=== PATIENT | male | born 1955 | race Caucasian/White ===

== ENCOUNTER 2022-06-18 16:11 | Observation (INO) ==
[2022-06-18] MEDS ORDERED: ZOFRAN INJ 4 MG VIAL IVP PRN (16:46)
[2022-06-18] MEDS ORDERED: NS 250 ML IV 250 ML IV ONE (17:34)
[2022-06-18 17:42] LABS: BASOPHILS # (AUTO) 0.1 X10^3/uL (0.0-0.1); BASOPHILS % (AUTO) 1.3 % (0.2-1.0); EOSINOPHILS # (AUTO) 0.6 x10^3/uL (0.0-0.2); EOSINOPHILS % (AUTO) 5.8 % (0.9-2.9); HEMATOCRIT 39.8 % (42.0-54.0); HEMOGLOBIN 13.5 g/dL (13.5-18.0); LYMPHOCYTES # (AUTO) 1.6 X10^3/uL (1.3-2.9); LYMPHOCYTES % (AUTO) 16.2 % (21.0-51.0); MEAN CORPUSCULAR HEMOGLOBIN 29.3 pg (27.0-34.0); MEAN CORPUSCULAR HGB CONC 33.8 g/dL (33.0-35.0); MEAN CORPUSCULAR VOLUME 86.7 fL (80.0-100.0); MEAN PLATELET VOLUME 8.6 fL (7.4-11.0); MONOCYTES # (AUTO) 0.7 x10^3/uL (0.3-0.8); MONOCYTES % (AUTO) 6.9 % (0.0-13.0); NEUTROPHILS # (AUTO) 6.8 x10^3/uL (2.2-4.8); NEUTROPHILS % (AUTO) 69.8 % (42.0-75.0); RED BLOOD COUNT 4.59 X10^6/uL (4.7-6.0); RED CELL DISTRIBUTION WIDTH 14.8 % (11.6-16.5); WHITE BLOOD COUNT 9.8 X10^3/uL (3.6-10.0)
[2022-06-18] MEDS: PEPCID 20 MG VIAL 20 MG in NS 50 ML IV 50 ML IV SCH ×2 (17:48→20:33)
[2022-06-18] MEDS: PROTONIX INJ 40 MG VIAL IVP SCH ×2 (17:48→20:33)
[2022-06-18 17:50] LABS: ALANINE AMINOTRANSFERASE 28 Units/L (12-78); ALBUMIN 3.5 g/dL (3.4-5.0); ALKALINE PHOSPHATASE 80 Units/L (46-116); AMYLASE 23 Units/L (25-115); ASPARTATE AMINO TRANSFERASE 25 Units/L (15-37); BLOOD UREA NITROGEN 10 mg/dL (7-18); CALCIUM 8.6 mg/dL (8.5-10.1); CARBON DIOXIDE 25.5 mmol/L (21-32); CHLORIDE 105 mmol/L (98-107); CREATININE 1.03 mg/dL (0.70-1.30); LIPASE 87 Units/L (73-393); SODIUM 140 mmol/L (136-145); TOTAL PROTEIN 6.2 g/dL (6.4-8.2); eGFR NON BLACK RACES > 60 (>60)
[2022-06-18] MEDS ORDERED: MIRALAX POWDER (1 DOSE 17 G) PO PRN (18:21)
[2022-06-18] MEDS ORDERED: XOPENEX 1.25 MG/3 ML NEBULE NEB PRN (18:26)
[2022-06-18] MEDS: NS 1,000 ML IV 1,000 ML with MVI INJ (ADULT) 10 ML IV SCH ×2 (19:25)
[2022-06-18] MEDS ORDERED: XOPENEX 1.25 MG/3 ML NEBULE NEB ONE (19:59)
[2022-06-18] MEDS ORDERED: PULMICORT NEB TX 0.5 MG NEB ONE (19:59)
[2022-06-18] MEDS ORDERED: Atrovent NEB TX 0.02% ONE (20:00)
[2022-06-18] MEDS: BENTYL CAP 10 MG PO SCH (20:28)
[2022-06-18] MEDS: TOPROL XL PO SCH (20:29)
[2022-06-18] MEDS: ZyrTEC TAB 10 MG PO SCH (20:29)
[2022-06-18] MEDS: LIPITOR TAB 40 MG PO SCH (20:29)
[2022-06-18] MEDS: CARAFATE PO SCH (20:31)
[2022-06-18] MEDS: Atrovent NEB TX 0.02% NEB SCH (20:49)
[2022-06-18] MEDS: XOPENEX 1.25 MG/3 ML NEBULE NEB SCH (20:49)
[2022-06-18] MEDS: PULMICORT NEB TX 0.5 MG NEB SCH (20:49)
[2022-06-18 20:50] LABS: BILIRUBIN,URINE NEGATIVE (NEGATIVE); BLOOD/HEMOGLOBIN,URINE NEGATIVE (NEGATIVE); GLUCOSE, URINE NEGATIVE (NEGATIVE); KETONES,URINE 2+ (NEGATIVE); LEUKOCYTE ESTERASE ,URINE 1+ (NEGATIVE); NITRITES,URINE NEGATIVE (NEGATIVE); PROTEIN,URINE 2+ (NEGATIVE); UROBILINOGEN,URINE NORMAL (NORMAL)
[2022-06-18 20:58] LABS: APPEARANCE,URINE CLEAR (CLEAR); BACTERIA,URINE TRACE /HPF (NEGATIVE); COLOR,URINE YELLOW (YELLOW); SQUAMOUS EPITHELIAL CELL,UR RARE /HPF (NEGATIVE)
[2022-06-18] MEDS: LEVSIN/MAALOX/LIDOC VISC PO SCH (21:16)
[2022-06-18] MEDS ORDERED: DUONEB 0.5 MG/3 MG (3 mL) NEB SCH (22:00)
[2022-06-18] MEDS: NORCO 5/325 MG TAB PO PRN (23:03)
[2022-06-19] MEDS: CARAFATE PO SCH ×4 (05:43→20:35)
[2022-06-19 06:28] LABS: BASOPHILS # (AUTO) 0.3 X10^3/uL (0.0-0.1); BASOPHILS % (AUTO) 3.7 % (0.2-1.0); EOSINOPHILS # (AUTO) 0.7 x10^3/uL (0.0-0.2); EOSINOPHILS % (AUTO) 7.1 % (0.9-2.9); HEMATOCRIT 38.5 % (42.0-54.0); HEMOGLOBIN 13.1 g/dL (13.5-18.0); LYMPHOCYTES # (AUTO) 1.9 X10^3/uL (1.3-2.9); LYMPHOCYTES % (AUTO) 19.9 % (21.0-51.0); MEAN CORPUSCULAR HEMOGLOBIN 29.4 pg (27.0-34.0); MEAN CORPUSCULAR HGB CONC 34.1 g/dL (33.0-35.0); MEAN CORPUSCULAR VOLUME 86.2 fL (80.0-100.0); MEAN PLATELET VOLUME 8.8 fL (7.4-11.0); MONOCYTES # (AUTO) 0.7 x10^3/uL (0.3-0.8); MONOCYTES % (AUTO) 7.4 % (0.0-13.0); NEUTROPHILS # (AUTO) 5.8 x10^3/uL (2.2-4.8); NEUTROPHILS % (AUTO) 61.9 % (42.0-75.0); RED BLOOD COUNT 4.47 X10^6/uL (4.7-6.0); RED CELL DISTRIBUTION WIDTH 14.8 % (11.6-16.5); WHITE BLOOD COUNT 9.4 X10^3/uL (3.6-10.0)
[2022-06-19] MEDS: Atrovent NEB TX 0.02% NEB SCH ×3 (06:34→20:27)
[2022-06-19] MEDS: XOPENEX 1.25 MG/3 ML NEBULE NEB SCH ×3 (06:34→20:26)
[2022-06-19 06:43] LABS: ALANINE AMINOTRANSFERASE 24 Units/L (12-78); ALBUMIN 3.2 g/dL (3.4-5.0); ALKALINE PHOSPHATASE 76 Units/L (46-116); ASPARTATE AMINO TRANSFERASE 23 Units/L (15-37); BLOOD UREA NITROGEN 12 mg/dL (7-18); CALCIUM 8.4 mg/dL (8.5-10.1); CARBON DIOXIDE 27.1 mmol/L (21-32); CHLORIDE 107 mmol/L (98-107); CREATININE 1.03 mg/dL (0.70-1.30); SODIUM 142 mmol/L (136-145); TOTAL PROTEIN 5.7 g/dL (6.4-8.2); eGFR NON BLACK RACES > 60 (>60)
[2022-06-19] MEDS: PULMICORT NEB TX 0.5 MG NEB SCH ×2 (08:14→20:26)
[2022-06-19] MEDS ORDERED: PATIENT'S HOME MEDICATION (Fluticasone-Umeclidin-Vilanter [Trelegy Ellipta] 100-62.5-25 mc IN SCH (09:00)
[2022-06-19] MEDS: LEVSIN/MAALOX/LIDOC VISC PO SCH ×4 (09:07→20:35)
[2022-06-19] MEDS: NS 1,000 ML IV 1,000 ML with MVI INJ (ADULT) 10 ML IV SCH ×4 (09:08→23:58)
[2022-06-19] MEDS: PROTONIX INJ 40 MG VIAL IVP SCH ×2 (09:08→20:36)
[2022-06-19] MEDS: SYNTHROID 25 mcg TAB PO SCH (09:09)
[2022-06-19] MEDS: BENTYL CAP 10 MG PO SCH ×4 (09:09→20:34)
[2022-06-19] MEDS: PEPCID 20 MG VIAL 20 MG in NS 50 ML IV 50 ML IV SCH ×2 (09:09→20:36)
[2022-06-19] MEDS: WELLBUTRIN XL 300 MG (DAILY) PO SCH (09:09)
[2022-06-19] MEDS: VITAMIN D3 125 mcg (5,000 UNITS) PO SCH (09:10)
[2022-06-19] MEDS: [UNRECOGNIZED DRUG - OTHER] PO SCH (09:10)
[2022-06-19] MEDS: SINGULAIR TAB 10 MG PO SCH (09:10)
--- NOTE | 2022-06-19 13:45 | PCM.PROG ---
Progress Note - Progress Note for Day of Date of Exam: 06/19/22 - Subjective Subjective: PT IS 66 WM, PT OF DR SOTO, ADMITTED WITH INTRACTABLE ABDOMINAL PAIN, CHANGE IN BOWEL HABITS WITH 20LB WEIGHT LOSS IN THE PAST 4-6 WEEKS. PT REPORTS WEAKNESS AND CRAMPING AT EPIGASTRIC AREA THIS AM. PT IS NPO FOR A CT OF ABD AND PELVIS WITH DR BONILLA CONSULTED. - Past Medical Family Social History Past Med/Fam/Surg Hx: No changes since H&P Allergies: Allergies No Known Allergies Allergy (Verified 09/04/21 09:37) - Review of Systems ROS: No change since H&P - Vital Signs and I&O's Vital Signs: Temperature 97.7 F Pulse Rate [Left Brachial] 68 Pulse Rate 70 Respiratory Rate 18 Blood Pressure [Left Arm] 129/84 Blood Pressure 138/81 O2 Sat by Pulse Oximetry 95 Intake and Output: Intake & Output 06/17/22 06/18/22 06/19/22 06/20/22 11:59 11:59 11:59 11:59 Intake Total 950 / 950 Output Total 200 / 200 Balance 750 / 750 - Physical Exam Oriented: Normal Eyes: Normal Ear: Normal Nose: Normal Throat: Normal Respiratory: Normal Cardiovascular: Normal : Normal Auscultation: Bowel Sounds: Increased Tenderness: RLQ, Epigastric Skin: Decreased Turgur Musculoskeletal: Back:Lumbar Psychiatric: Normal Mood Description: Calm Speech Pattern: Clear, Appropriate - Laboratory and Diagnostics Result Diagrams: 06/19/22 05:39 06/19/22 05:39 Labs: Laboratory WBC 9.4 X10^3/uL (3.6-10.0) 06/19/22 05:39 RBC 4.47 X10^6/uL (4.7-6.0) L 06/19/22 05:39 Hgb 13.1 g/dL (13.5-18.0) L 06/19/22 05:39 Hct 38.5 % (42.0-54.0) L 06/19/22 05:39 MCV 86.2 fL (80.0-100.0) 06/19/22 05:39 MCH 29.4 pg (27.0-34.0) 06/19/22 05:39 MCHC 34.1 g/dL (33.0-35.0) 06/19/22 05:39 RDW 14.8 % (11.6-16.5) 06/19/22 05:39 Plt Count 194 X10^3/uL (150.0-450.0) 06/19/22 05:39 MPV 8.8 fL (7.4-11.0) 06/19/22 05:39 Neut % (Auto) 61.9 % (42.0-75.0) 06/19/22 05:39 Lymph % (Auto) 19.9 % (21.0-51.0) L 06/19/22 05:39 [place] % (Auto) 7.4 % (0.0-13.0) 06/19/22 05:39 Eos % (Auto) 7.1 % (0.9-2.9) H 06/19/22 05:39 Baso % (Auto) 3.7 % (0.2-1.0) H 06/19/22 05:39 Neut # (Auto) 5.8 x10^3/uL (2.2-4.8) H 06/19/22 05:39 Lymph # (Auto) 1.9 X10^3/uL (1.3-2.9) 06/19/22 05:39 [place] # (Auto) 0.7 x10^3/uL (0.3-0.8) 06/19/22 05:39 Eos # (Auto) 0.7 x10^3/uL (0.0-0.2) H 06/19/22 05:39 Baso # (Auto) 0.3 X10^3/uL (0.0-0.1) H 06/19/22 05:39 Absolute Nucleated RBC 0.1 /100WBC 06/19/22 05:39 Sodium 142 mmol/L (136-145) 06/19/22 05:39 Corrected Sodium TNP 06/19/22 05:39 Potassium 3.5 mmol/L (3.5-5.1) 06/19/22 05:39 Chloride 107 mmol/L (98-107) 06/19/22 05:39 Carbon Dioxide 27.1 mmol/L (21-32) 06/19/22 05:39 BUN 12 mg/dL (7-18) 06/19/22 05:39 Creatinine 1.03 mg/dL (0.70-1.30) 06/19/22 05:39 Est GFR (MDRD) Af Amer > 60 (>60) 06/19/22 05:39 Est GFR (MDRD) Non-Af > 60 (>60) 06/19/22 05:39 Glucose 70 mg/dL (65-99) 06/19/22 05:39 Calcium 8.4 mg/dL (8.5-10.1) L 06/19/22 05:39 Corrected Calcium 9.0 mg/dL (8.5-10.1) 06/19/22 05:39 Magnesium 1.9 mg/dL (2.0-2.9) L 06/19/22 05:39 Total Bilirubin 0.60 mg/dL (0.2-1.0) 06/19/22 05:39 AST 23 Units/L (15-37) 06/19/22 05:39 ALT 24 Units/L (12-78) 06/19/22 05:39 Alkaline Phosphatase 76 Units/L (46-116) 06/19/22 05:39 Total Protein 5.7 g/dL (6.4-8.2) L 06/19/22 05:39 Albumin 3.2 g/dL (3.4-5.0) L 06/19/22 05:39 Globulin 2.5 g/dL (2.5-4.5) 06/19/22 05:39 Albumin/Globulin Ratio 1.3 Ratio (1.1-2.1) 06/19/22 05:39 Amylase 23 Units/L (25-115) L 06/18/22 17:30 Lipase 87 Units/L (73-393) 06/18/22 17:30 Specimen Type Clean catch urine 06/18/22 20:35 Urine Color Yellow (YELLOW) 06/18/22 20:35 Urine Appearance Clear (CLEAR) 06/18/22 20:35 Urine pH 5.0 (5.0 - 8.0) 06/18/22 20:35 Ur Specific [place] 1.030 (1.000-1.030) 06/18/22 20:35 Urine Protein 2+ (NEGATIVE) 06/18/22 20:35 Urine Glucose (UA) Negative (NEGATIVE) 06/18/22 20:35 Urine Ketones 2+ (NEGATIVE) 06/18/22 20:35 Urine Blood Negative (NEGATIVE) 06/18/22 20:35 Urine Nitrite Negative (NEGATIVE) 06/18/22 20:35 Urine Bilirubin Negative (NEGATIVE) 06/18/22 20:35 Urine Urobilinogen Normal (NORMAL) 06/18/22 20:35 Ur Leukocyte Esterase 1+ (NEGATIVE) 06/18/22 20:35 Urine RBC 3-5 /HPF (0-3) A 06/18/22 20:35 Urine WBC 3-5 /HPF (0-5) 06/18/22 20:35 Ur Squamous Epith Cells Rare /HPF (NEGATIVE) 06/18/22 20:35 Urine Bacteria Trace /HPF (NEGATIVE) 06/18/22 20:35 Urine Mucus Many /HPF (NEGATIVE) 06/18/22 20:35 Ur Culture Indicated? No/not indicated 06/18/22 20:35 - Plan (1) Gastritis Status: Acute Plan: NPO FOR CT THIS AM, CONTINUE GENTLE IV HYDRATION, PPI THERAPY. BP AND CARDIAC MONITORING. GI CONSULT. (2) GERD (gastroesophageal reflux disease) Status: Acute (3) Abdominal pain Status: Acute (4) COPD (chronic obstructive pulmonary disease) Status: Acute Qualifiers: COPD type: COPD with acute exacerbation Qualified Code(s): J44.1 - Chronic obstructive pulmonary disease with (acute) exacerbation (5) CHF (congestive heart failure) Status: Acute Qualifiers: Heart failure type: combined systolic and diastolic Heart failure chronicity: acute on chronic Qualified Code(s): I50.43 - Acute on chronic combined systolic (congestive) and diastolic (congestive) heart failure
[2022-06-19] MEDS ORDERED: K-RIDER 10 MEQ/NS 100 ML 10 MEQ/100 ML BAG IV PRN (14:45)
[2022-06-19] MEDS ORDERED: POTASSIUM CHL 40 MEQ/NS 0.45% 500 ML IV PRN (14:45)
[2022-06-19] MEDS ORDERED: POTASSIUM CHL 60 MEQ/NS 0.45% 500 ML IV PRN (14:45)
[2022-06-19] MEDS ORDERED: K-DUR TAB 20 MEQ PO PRN (14:45)
[2022-06-19] MEDS ORDERED: MICRO K EXTEN CAP 10 MEQ PO PRN (14:45)
[2022-06-19] MEDS ORDERED: KLOR-CON PO PRN (14:45)
[2022-06-19] MEDS ORDERED: POTASSIUM CHLORIDE LIQ 20 MEQ UDC PO PRN (14:45)
[2022-06-19] MEDS: MAGNESIUM SULFATE 1 GRAM/100 mL PREMIX 1 G/100 ML BAG IV PRN ×2 (16:02→17:36)
--- NOTE | 2022-06-19 16:19 | CT ---
CT abdomen and pelvis with contrastIndication: Abdominal pain with nausea, vomiting and weight lossCOMPARISONApril 2021 CTTECHNIQUEHelical images through the abdomen and pelvis after IV and oral contrast. Coronal and sagittal reformats provided.FINDINGSLimited images through the lower chest show cardiomegaly with coronary calcifications, fairly advanced. Chronic lung changes noted in the bases, suggesting fairly advanced COPD. Review of bone windows demonstrates spine and pelvis DJD without destructive osseous lesion.Abdomen: The liver, pancreas, spleen, adrenal glands, stomach and small bowel show no acute abnormality. Oral contrast passes distally without obstruction. There is no acute colonic abnormality. Appendix not identified. Aortoiliac plaque noted. Kidneys show no stone or hydroureteronephrosis.Pelvis: Urinary bladder is normal. Moderate stool seen in the rectum. Prostate gland is normal.IMPRESSION1. No acute abnormality to explain the patient's symptoms.2. Moderate stool in the rectum. Correlate for constipation3. Vascular disease, extensive coronary artery disease and chronic lung changes, likely COPD. Spine DJD noted. AllElectronically signed by: RAMON THOMPSON (Jun 19, 2022 16:18:42)
[2022-06-19 16:48] VITALS: BMI 24.1
[2022-06-19] MEDS: NORCO 5/325 MG TAB PO PRN (20:00)
[2022-06-19] MEDS: ZyrTEC TAB 10 MG PO SCH (20:34)
[2022-06-19] MEDS: LIPITOR TAB 40 MG PO SCH (20:35)
[2022-06-19] MEDS: TOPROL XL PO SCH (21:00)
--- NOTE | 2022-06-20 05:41 | EKG ---
Test Reason : surgery Blood Pressure : */* mmHG Vent. Rate : 53 BPM Atrial Rate : 53 BPM P-R Int : 216 ms QRS Dur : 120 ms QT Int : 468 ms P-R-T Axes : 56 -56 -3 degrees QTc Int : 439 ms Sinus bradycardia with 1st degree AV block Left anterior fascicular block Left ventricular hypertrophy with QRS widening ( R in aVL , Capo product ) Abnormal ECG When compared with ECG of 18-MAY-2022 21:14, IA interval has increased Confirmed by Ronald May ([id number]) on 06/20/2022 10:34:23 AM Referred By: Confirmed By: Ronald May
[2022-06-20] MEDS: XOPENEX 1.25 MG/3 ML NEBULE NEB SCH (05:45)
[2022-06-20] MEDS: Atrovent NEB TX 0.02% NEB SCH (05:45)
[2022-06-20 06:00] LABS: BASOPHILS # (AUTO) 0.3 X10^3/uL (0.0-0.1); BASOPHILS % (AUTO) 2.8 % (0.2-1.0); EOSINOPHILS # (AUTO) 0.6 x10^3/uL (0.0-0.2); EOSINOPHILS % (AUTO) 6.3 % (0.9-2.9); HEMATOCRIT 37.9 % (42.0-54.0); LYMPHOCYTES # (AUTO) 1.5 X10^3/uL (1.3-2.9); LYMPHOCYTES % (AUTO) 14.9 % (21.0-51.0); MEAN CORPUSCULAR HEMOGLOBIN 29.5 pg (27.0-34.0); MEAN CORPUSCULAR HGB CONC 34.2 g/dL (33.0-35.0); MEAN CORPUSCULAR VOLUME 86.4 fL (80.0-100.0); MEAN PLATELET VOLUME 8.9 fL (7.4-11.0); MONOCYTES # (AUTO) 0.7 x10^3/uL (0.3-0.8); MONOCYTES % (AUTO) 6.6 % (0.0-13.0); NEUTROPHILS # (AUTO) 6.9 x10^3/uL (2.2-4.8); NEUTROPHILS % (AUTO) 69.4 % (42.0-75.0); RED BLOOD COUNT 4.38 X10^6/uL (4.7-6.0); WHITE BLOOD COUNT 9.9 X10^3/uL (3.6-10.0)
[2022-06-20] MEDS: CARAFATE PO SCH (06:02)
[2022-06-20 06:06] LABS: ALANINE AMINOTRANSFERASE 22 Units/L (12-78); ALBUMIN 2.9 g/dL (3.4-5.0); ALKALINE PHOSPHATASE 73 Units/L (46-116); ASPARTATE AMINO TRANSFERASE 19 Units/L (15-37); BLOOD UREA NITROGEN 6 mg/dL (7-18); CARBON DIOXIDE 26.3 mmol/L (21-32); CHLORIDE 108 mmol/L (98-107); COR CA(FOR HYPOALB) 8.9 mg/dL (8.5-10.1); CREATININE 0.96 mg/dL (0.70-1.30); MAGNESIUM 2.2 mg/dL (2.0-2.9); SODIUM 142 mmol/L (136-145); TOTAL PROTEIN 5.4 g/dL (6.4-8.2); eGFR NON BLACK RACES > 60 (>60)
[2022-06-20] MEDS: BENTYL CAP 10 MG PO SCH (08:20)
[2022-06-20] MEDS: LEVSIN/MAALOX/LIDOC VISC PO SCH (08:20)
[2022-06-20] MEDS: [UNRECOGNIZED DRUG - OTHER] PO SCH (08:20)
[2022-06-20] MEDS: SINGULAIR TAB 10 MG PO SCH (08:20)
[2022-06-20] MEDS: WELLBUTRIN XL 300 MG (DAILY) PO SCH (08:21)
[2022-06-20] MEDS: VITAMIN D3 125 mcg (5,000 UNITS) PO SCH (08:21)
[2022-06-20] MEDS: SYNTHROID 25 mcg TAB PO SCH (08:21)
[2022-06-20] MEDS ORDERED: NS 500 ML IV 500 ML IV ONE (08:24)
[2022-06-20] MEDS ORDERED: DIPRIVAN VIAL 40 ML ONE (08:42)
[2022-06-20] MEDS ORDERED: COLACE CAP 100 MG PO SCH (09:00)
[2022-06-20] MEDS ORDERED: MILK OF MAGNESIA PO SCH (09:00)
[2022-06-20] MEDS: PROTONIX INJ 40 MG VIAL IVP SCH (09:32)
[2022-06-20] MEDS: PEPCID 20 MG VIAL 20 MG in NS 50 ML IV 50 ML IV SCH (09:32)
--- NOTE | 2022-06-20 11:25 | DR.UPDATE ---
H&P Update Prescription drug monitoring program results: PDMP reviewed and no concerns identified H&P Reviewed: Yes Any changes to H&P?: Yes Changes noted:: WAS A DIRECT ADMISSION FROM THE OFFICE DUE TO COMPLAINTS OF PERSISTENT ABDOMINAL PAIN, NAUSEA AND VOMITING, AND 20LB WEIGHT LOSS X 1 MONTH. HE WAS EVALUATED IN THE ER ON 05/18/22. AN ABDOMEN XRAY WAS OBTAINED AT THAT TIME AND REVEALED LOW COLON OBSTRUCTION VS ILEUS. FOLLOW-UP IMAGING WAS NOT DONE. HE WAS TREATED WITH CIPRO 500MG BID X 7 DAYS, PEPCID, PROTONIX, GI COCKTAIL, AND WAS GIVEN A PRESCRIPTION FOR NORCO 5/325MG. HE REPORTS PERSISTENT WORSENING OF SYMPTOMS DESPITE COMPLAINCE WITH MEDICATIONS. HE WAS ADMITTED TO THE HOSPITAL FOR FURTHER EVALUATION AND TREATMENT. HE DESCRIBES ABDOMINAL PAIN DIFFUSE, INTERMITTENT, AND CRAMPING. HE RATED PAIN A 6/10 ON ARRIVAL. HIS PMH INCLUDES: CAD, HYPERLIPIDEMIA, COPD, EMPHYSEMA, GERD, CONSTIPATION, APPENDECTOMY, CAD, FACIAL RECONSTRUCTIVE SURGERY, RIGHT KNEE SURGERY, BILATERAL HAND SURGERIES. ON ARRIVAL TO THE HOSPITAL, HIS VITALS WERE: 97.7-80-22-92%- 132/85. LABS WERE OBTAINED. WBC 9.8, RBC 4.59, HGB 13.5, HCT 39.8, PLT COUNT 228, SODIUM 140, POTASSIUM 3.4, CHLORIDE 105, BUN 10, CREATININE 1.03, GLUCOSE 80, CALCIUM 8.6, AST 25, ALT 28, ALK PHOS 80, TOTAL PROTEIN 6.2, ALBUMIN 3.5, AMYLASE 23, LIPASE 87. HE WAS STARTED ON NORMAL SALINE WITH MVI AT 75 ML/HR, PEPCID 40MG IV BID, PROTONIX 20MG IV BID, GI COCKTAIL 10ML QID, THE POTASSIUM AND MAGNESIUM PROTOCOLS, ZOFRAN 4MG IV Q4H. HIS HOME MEDICATIONS OF CARAFATE, SINGULAIR, METOPROLOL, SYNTHROID, XOPENEX NEBS, PULMICORT NEBS, NORCO, BENTYL, VITAMIN D, ZYRTEC, WELLBUTRIN, AND LIPITOR WERE RESUMED. WE WILL OBTAIN AN ABDOMEN/PELVIS CT WITH CONTRAST, A URINALYSIS, AND A URINE CULTURE. WE WILL CONSULT , GENERAL SURGEON. OTHERWISE, WE WILL FOLLOW-UP WITH AM LABS AND CONTINUE TO MONITOR. TIME SPENT ON CLINICAL ASSESSMENT, REVIWING LABS AND IMAGING, DECISION MAKING, AND DOCUMENTATION GREATER THAN 75 MINUTES. Patient was examined?: Yes
[2022-06-20 12:13] VITALS: BP 122/85
[2022-06-20] MEDS: PULMICORT NEB TX 0.5 MG NEB SCH (12:46)
== END 2022-06-20 14:35 | disposition home or self-care (01) ==
LOC: MED/SURG
PROVIDERS: ADMIT Internal Medicine; ATTEND Internal Medicine

== ENCOUNTER 2023-06-08 23:40 | Observation (INO) ==
--- NOTE | 2023-06-08 23:48 | DR.SOBA ---
HPI Time Seen Time Seen by Provider: 06/08/23 23:48 HPI Comment HPI Comment: 67 y/o with copd on intermittent home oxygen and hx cad s/p heart cath 2-3 weeks ago presents with acute sob x 1-2 worsening over the past day; occasional cough with intermittent blood-tinged sputum; no fevers, chills, wheez ing, abd pain, n/v/d; currently using zithromax three times a week per human resources director but steroids were stopped recently because pulmonology thought he was using them too much PMH PMH Past Medical History: Anxiety, COPD, Coronary Artery Disease, Depression, Dyslipidemia, GERD, Hypertension, Hypothyroidism and PUD Past Surgical History: Yes Surgical History: Appendectomy and Cholecystectomy Family History Family Medical History: Cancer and Coronary Artery Disease Social History Do you use any recreational Drugs:: No ROS Review of Systems Constitutional: No Symptoms Reported Eyes: No Symptoms Reported ENTM: No Symptoms Reported Respiratoy: See HPI Cardiovascular: No Symptoms Reported Gastrointestinal/Abdominal: No Symptoms Reported Genitourinary: No Symptoms Reported Neurological: No Symptoms Reported Musculoskeletal: No Symptoms Reported Integumentary: No Symptoms Reported Hematologic/Lymphatic: No Symptoms Reported Endocrine: No Symptoms Reported Psychiatric: No Symptoms Reported PE Vital Signs Vitals: Vital Signs Temperature 98.3 F Pulse Rate 113 Pulse Rate 117 Pulse Rate 113 Pulse Rate 104 Pulse Rate 115 Pulse Rate 129 Pulse Rate 114 Pulse Rate 120 Pulse Rate 121 Pulse Rate 106 Pulse Rate 132 Pulse Rate 140 Pulse Rate 140 Respiratory Rate 36 Respiratory Rate 51 Respiratory Rate 41 Respiratory Rate 29 Respiratory Rate 23 Respiratory Rate 37 Respiratory Rate 40 Respiratory Rate 53 Respiratory Rate 52 Respiratory Rate 35 Respiratory Rate 29 Respiratory Rate 37 Respiratory Rate 32 Blood Pressure 135/88 Blood Pressure 117/84 Blood Pressure 117/84 Blood Pressure 124/74 Blood Pressure 139/89 Blood Pressure 139/84 Blood Pressure 139/84 O2 Sat by Pulse Oximetry 97 O2 Sat by Pulse Oximetry 98 O2 Sat by Pulse Oximetry 98 O2 Sat by Pulse Oximetry 95 O2 Sat by Pulse Oximetry 99 O2 Sat by Pulse Oximetry 84 O2 Sat by Pulse Oximetry 89 O2 Sat by Pulse Oximetry 96 O2 Sat by Pulse Oximetry 97 O2 Sat by Pulse Oximetry 97 O2 Sat by Pulse Oximetry 85 General Limitations: No Limitations General Appearance: Alert and In No Apparent Distress Head Head Exam: Normal Inspection Eyes Eye exam: Normal Appearance ENT ENT Exam: Normal Exam Neck Neck Exam: Normal Inspection Chest Chest Inspection: Normal Inspection Respiratory Respiratory Exam: Accessory Muscle Use (tachypnea worsening with speaking) Respiratory Exam: Bilateral: Clear to Auscultation and Bilateral: Decreased Breath Sounds Cardiovascular Cardiovascular Exam: Normal Rhythm and Tachycardia Abdominal Exam Abdominal Exam: Normal Inspection, Normal Bowel Sounds and Soft Extremities Extremities Exam: Normal Inspection Back Back Exam: Normal Inspection Neurologic Neurological Exam: Alert and Oriented X3 Psychiatric Psychiatric Exam: Anxious Skin Skin Exam: Warm, Dry, Intact and Normal Color COURSE Reevaluation 1st: Improved 2nd: Unchanged Consultation Call Returned: 02:34 (Yanely accepts admission.) Critical Care Notes Total Time (mins): 30 Critical Diagnosis: sepsis, pneu, bibasilar bronchiectasis, hypoxia Critical Interventions: labs/cxr/ct chest oxygen via nc, abx discussion with pt multiple times discussion with son with all questions answered discussion with Dr Ny re: admission ROR Labs Reviewed Laboratory Results Reviewed?: Yes 06/08/23 23:54 06/08/23 23:54 Laboratory: WBC 14.0 X10^3/uL (3.6-10.0) H 06/08/23 23:54 RBC 4.35 X10^6/uL (4.7-6.0) L 06/08/23 23:54 Hgb 13.2 g/dL (13.5-18.0) L 06/08/23 23:54 Hct 39.6 % (42.0-54.0) L 06/08/23 23:54 MCV 91.1 fL (80.0-100.0) 06/08/23 23:54 MCH 30.4 pg (27.0-34.0) 06/08/23 23:54 MCHC 33.4 g/dL (33.0-35.0) 06/08/23 23:54 RDW 14.1 % (11.6-16.5) 06/08/23 23:54 Plt Count 289 X10^3/uL (150.0-450.0) 06/08/23 23:54 MPV 8.7 fL (7.4-11.0) 06/08/23 23:54 Neut % (Auto) 81.4 % (42.0-75.0) H 06/08/23 23:54 Lymph % (Auto) 4.5 % (21.0-51.0) L 06/08/23 23:54 [place] % (Auto) 8.7 % (0.0-13.0) 06/08/23 23:54 Eos % (Auto) 5.0 % (0.9-2.9) H 06/08/23 23:54 Baso % (Auto) 0.4 % (0.2-1.0) 06/08/23 23:54 Neut # (Auto) 11.3 x10^3/uL (2.2-4.8) H 06/08/23 23:54 Lymph # (Auto) 0.6 X10^3/uL (1.3-2.9) L 06/08/23 23:54 [place] # (Auto) 1.2 x10^3/uL (0.3-0.8) H 06/08/23 23:54 Eos # (Auto) 0.7 x10^3/uL (0.0-0.2) H 06/08/23 23:54 Baso # (Auto) 0.1 X10^3/uL (0.0-0.1) 06/08/23 23:54 Absolute Nucleated RBC 0.0 /100WBC 06/08/23 23:54 D-Dimer 0.31 ug/ml (0.0-0.57) 06/08/23 23:54 Sample Site Lr 06/08/23 23:52 ABG pH 7.520 (7.35-7.45) H 06/08/23 23:52 ABG pCO2 24.0 mmHg (35.0-45.0) L 06/08/23 23:52 ABG pO2 90.0 mmHg (80.0-100.0) 06/08/23 23:52 ABG HCO3 19.6 mmol/L (22-26) L 06/08/23 23:52 ABG O2 Saturation 98.0 % (90-100) 06/08/23 23:52 ABG Base Excess -1.8 mmol/L (-2.0-2.0) 06/08/23 23:52 Cyrus Test Pos 06/08/23 23:52 A-a Gradient 165.0 mmHg 06/08/23 23:52 FiO2 40.0 06/08/23 23:52 Blood Gas Comments Abhay well ae 06/08/23 23:52 Sodium 142 mmol/L (136-145) 06/08/23 23:54 Corrected Sodium TNP 06/08/23 23:54 Potassium 4.1 mmol/L (3.5-5.1) 06/08/23 23:54 Chloride 105 mmol/L (98-107) 06/08/23 23:54 Carbon Dioxide 23.3 mmol/L (21-32) 06/08/23 23:54 BUN 17 mg/dL (7-18) 06/08/23 23:54 Creatinine 1.15 mg/dL (0.70-1.30) 06/08/23 23:54 Est GFR (MDRD) Af Amer > 60 (>60) 06/08/23 23:54 Est GFR (MDRD) Non-Af > 60 (>60) 06/08/23 23:54 Glucose 96 mg/dL (65-99) 06/08/23 23:54 Lactic Acid 1.1 mmol/L (0.4-2.0) 06/09/23 00:53 Calcium 9.1 mg/dL (8.5-10.1) 06/08/23 23:54 Corrected Calcium 9.7 mg/dL (8.5-10.1) 06/08/23 23:54 Total Bilirubin 0.80 mg/dL (0.2-1.0) 06/08/23 23:54 AST 26 Units/L (15-37) 06/08/23 23:54 ALT 37 Units/L (12-78) 06/08/23 23:54 Alkaline Phosphatase 105 Units/L (46-116) 06/08/23 23:54 Creatine Kinase 73 Units/L (39-308) 06/08/23 23:54 Troponin I High Sens 14.4 ng/L (4.0-60.0) 06/08/23 23:54 B-Natriuretic Peptide 88.8 pg/mL (0-79) H 06/08/23 23:54 Total Protein 7.6 g/dL (6.4-8.2) 06/08/23 23:54 Albumin 3.2 g/dL (3.4-5.0) L 06/08/23 23:54 Globulin 4.4 g/dL (2.5-4.5) 06/08/23 23:54 Albumin/Globulin Ratio 0.7 Ratio (1.1-2.1) L 06/08/23 23:54 SARS-CoV-2 (PCR) Negative (NEGATIVE) 06/08/23 23:57 Influenza Type A (PCR) Negative (NEGATIVE) 06/08/23 23:57 Influenza Type B (PCR) Negative (NEGATIVE) 06/08/23 23:57 RSV (PCR) Negative (NEGATIVE) 06/08/23 23:57 XRAY XRAY Interpreted by: Radiologist X-ray Results: pcxr: Chronic interstitial lung disease with superimposed peripheral alveolar infiltrates and a more prominent left lung base infiltrate. ct chest w/o: Aneurysmal dilatation of the ascending thoracic aorta measuring up to 4.6 cm. Marked emphysematous changes throughout the lungs with scattered interstitial fibrosis with bibasilar bronchiectasis. No significant change from previous 04/30/2023. Opioid Opioid Risk Tool Age (Lan box if 16-45): No History of Preadolescent Sexual Abuse: No Total: 0 Total Score Risk Category: Low Risk Copyright: Alpesh HODGES predicting aberrant behaviors Discharge Plan Diagnosis Discharge Problem: Bilateral interstitial pneumonia, Interstitial lung disease, Bronchiectasis with acute exacerbation Sepsis Qualifiers: Sepsis type: sepsis due to unspecified organism Sepsis acute organ dysfunction status: with acute organ dysfunction Severe sepsis acute organ dysfunction type: acute respiratory failure Acute respiratory failure type: with hypoxia Severe sepsis shock status: without septic shock Qualified Code(s): A41.9 - Sepsis, unspecified organism Discharge Plan Patient Disposition: 09 ADMITTED INPATIENT Condition: Stable Prescriptions: No Action dextroamphetamine-amphetamine 20 mg tablet 20 mg PO QDAY megestrol 40 mg tablet 40 mg PO BID Bosulif 100 mg Capsule 100 mg PO DAILY cyclobenzaprine 10 mg tablet 10 mg PO TID temazepam 15 mg capsule 15 mg PO QPM PRN prasugrel 10 mg tablet 10 mg PO QDAY ipratropium bromide 0.02 % Solution 2.5 ml INHALATION Q6H PRN cholecalciferol (vitamin D3) 50 mcg (2,000 unit) Capsule 50 mcg PO QDAY famotidine 40 mg tablet 40 mg PO BID Rx Instructions: TAKE ONE TABLET TWICE A DAY atorvastatin 40 mg tablet 40 mg PO QHS albuterol sulfate 2.5 mg /3 mL (0.083 %) solution for nebulization 3 ml inhalation Q6H PRN (Reason: Wheezing) Patient Comments: [NO ORIGINAL SIG] sucralfate 1 gram tablet 1 g PO QACHS levothyroxine 25 mcg tablet 25 mcg PO QDAY montelukast 10 mg tablet 10 mg PO QDAY metoprolol succinate 25 mg tablet extended release 24 hr 25 mg PO QHS bupropion HCl 300 mg tablet extended release 24 hr 300 mg PO QDAY Trelegy Ellipta 100-62.5-25 mcg blister with device 1 puff inhalation QDAY polyethylene glycol 3350 [Miralax] 17 gram Powder In Packet 17 g PO QDAY PRN (Reason: Constipation) cetirizine [Zyrtec] 10 mg Tablet 10 mg PO QHS aspirin 81 mg Tablet,Delayed Release (Dr/Ec) 81 mg PO QDAY tadalafil 5 mg Tablet 5 mg PO QDAY Health Concerns: Post Hospitalization: new medications and changes needed to prevent readmission or further decline. Pt educated and given instructions on all concerns. Plan of Treatment: Continue with present treatment and follow up plan. Pt is to keep follow up appointment as instructed and take medications as ordered. Follow ups/Referrals Follow ups/Referrals: Wero Sanchez [Primary Care Provider] - 3 days Instructions Instructions: Sepsis, Adult
--- NOTE | 2023-06-08 23:49 | EKG ---
Test Reason : SHORTNESS OF BREATH" Blood Pressure : */* mmHG Vent. Rate : 138 BPM Atrial Rate : * BPM P-R Int : * ms QRS Dur : 138 ms QT Int : 338 ms P-R-T Axes : * -15 108 degrees QTc Int : 512 ms Wide QRS tachycardia with occasional premature ventricular complexes Left bundle branch block Abnormal ECG When compared with ECG of 05-JUN-2023 15:31, Wide QRS tachycardia has replaced Sinus rhythm Vent. rate has increased BY 51 BPM Confirmed by Robbi Irizarry MD ([id number]) on 06/10/2023 7:35:59 AM Referred By: Confirmed By: Robbi Irizarry MD
[2023-06-08 23:58] LABS: ABG ALLEN TEST POS; ABG BASE EXCESS -1.8 mmol/L (-2.0-2.0); ABG HCO3 19.6 mmol/L (22-26)
[2023-06-09 00:07] LABS: BASOPHILS # (AUTO) 0.1 X10^3/uL (0.0-0.1); BASOPHILS % (AUTO) 0.4 % (0.2-1.0); EOSINOPHILS # (AUTO) 0.7 x10^3/uL (0.0-0.2); HEMATOCRIT 39.6 % (42.0-54.0); HEMOGLOBIN 13.2 g/dL (13.5-18.0); LYMPHOCYTES # (AUTO) 0.6 X10^3/uL (1.3-2.9); LYMPHOCYTES % (AUTO) 4.5 % (21.0-51.0); MEAN CORPUSCULAR HEMOGLOBIN 30.4 pg (27.0-34.0); MEAN CORPUSCULAR HGB CONC 33.4 g/dL (33.0-35.0); MEAN CORPUSCULAR VOLUME 91.1 fL (80.0-100.0); MEAN PLATELET VOLUME 8.7 fL (7.4-11.0); MONOCYTES # (AUTO) 1.2 x10^3/uL (0.3-0.8); MONOCYTES % (AUTO) 8.7 % (0.0-13.0); NEUTROPHILS # (AUTO) 11.3 x10^3/uL (2.2-4.8); NEUTROPHILS % (AUTO) 81.4 % (42.0-75.0); PLATELET COUNT 289 X10^3/uL (150.0-450.0); RED BLOOD COUNT 4.35 X10^6/uL (4.7-6.0); RED CELL DISTRIBUTION WIDTH 14.1 % (11.6-16.5)
[2023-06-09 00:19] LABS: ALANINE AMINOTRANSFERASE 37 Units/L (12-78); ALBUMIN 3.2 g/dL (3.4-5.0); ALKALINE PHOSPHATASE 105 Units/L (46-116); ASPARTATE AMINO TRANSFERASE 26 Units/L (15-37); BLOOD UREA NITROGEN 17 mg/dL (7-18); CALCIUM 9.1 mg/dL (8.5-10.1); CARBON DIOXIDE 23.3 mmol/L (21-32); CHLORIDE 105 mmol/L (98-107); COR CA(FOR HYPOALB) 9.7 mg/dL (8.5-10.1); CREATINE KINASE 73 Units/L (39-308); CREATININE 1.15 mg/dL (0.70-1.30); GLUCOSE 96 mg/dL (65-99); POTASSIUM 4.1 mmol/L (3.5-5.1); SODIUM 142 mmol/L (136-145); TOTAL PROTEIN 7.6 g/dL (6.4-8.2); eGFR NON BLACK RACES > 60 (>60)
[2023-06-09] MEDS ORDERED: ZOSYN VIAL 3.375 GRAMS IV ONE (00:40)
[2023-06-09] MEDS ORDERED: NS 100 ML IV 100 ML ONE (00:41)
[2023-06-09] MEDS: ZOSYN VIAL 3.375 GRAMS 3.375 G in NS 100 ML IV 100 ML IV SCH (00:53)
--- NOTE | 2023-06-09 00:56 | RAD ---
EXAM:CHEST, 1 VIEWHISTORY:SOB;COMPARISON:June 05, 2023.TECHNIQUE:A single frontal view of the chest was obtained.FINDINGS:There are multiple EKG leads and wires seen overlying the patient. The heart is normal in size. There is extensive chronic interstitial lung disease noted throughout both lungs with superimposed left lower lobe alveolar infiltrate. Infiltrates within the periphery of both lungs is also seen. There is no effusion. There is no pneumothorax. The osseous structures are intact. There is anterior cervical interbody fusion of 3 levels of the lower cervical spine .IMPRESSION:Chronic interstitial lung disease with superimposed peripheral alveolar infiltrates and a more prominent left lung base infiltrate.THIS IS AN ELECTRONICALLY VERIFIED FINAL REPORT06/09/2023 12:52 AM - Electronically signed by Ashley Patel MD
--- NOTE | 2023-06-09 01:44 | CT ---
EXAM: CT CHEST WITHOUT CONTRAST HISTORY: HYPOXIA, SOB, ABNORMAL CHEST XRAY; COMPARISON: 04/30/2023 TECHNIQUE: Axial images were acquired of the chest without IV contrast. Sagittal and coronal reformatted images were provided. All images were reviewed in a variety of windows and levels. 3D MIPS were performed a nd reviewed. RADIATION REDUCTION TECHNIQUE: Automated exposure control, Adjustment of the mA and/or kV according t o patient size, or iterative reconstruction techniques were used. FINDINGS: CHEST: Please note that lack of IV contrast limits evaluation of soft tissue structures and vascular detail THYROID GLAND: The thyroid gland is grossly unremarkable. HEART AND VESSELS: The heart size is within normal limits. There is no evidence of a pericardial effu janene. Coronary artery calcifications present. Aneurysmal dilatation of the ascending thoracic aorta measuring up to 4.6 cm. The main pulmonary artery size is within normal limits. LYMPHNODES: There is no evidence of axillary, mediastinal, or hilar lymphadenopathy. AIRWAY: The trachea and mainstem bronchi are patent. There are no intraluminal lesions seen. LUNGS: Marked emphysematous changes throughout the lungs. Scattered interstitial fibrosis with bibas ilar bronchiectasis. No pleural effusion or pneumothorax. ESOPHAGUS: The esophagus is grossly unremarkable. BONES: The visualized bones demonstrate degenerative changes. There are no concerning lytic or blasti c lesions identified. UPPER ABDOMINAL STRUCTURES: The visualized portions of the upper abdominal structures are unremarkabl e. IMPRESSION: Aneurysmal dilatation of the ascending thoracic aorta measuring up to 4.6 cm. Marked emphysematous changes throughout the lungs with scattered interstitial fibrosis with bibasilar bronchiectasis. No significant change from previous 04/30/2023. THIS IS AN ELECTRONICALLY VERIFIED FINAL REPORT 06/09/2023 1:41 AM - Electronically signed by Dar Recinos MD
[2023-06-09] MEDS ORDERED: ZOSYN VIAL 2.25 GRAMS 2.25 G in NS 100 ML IV 100 ML IV SCH (02:42)
[2023-06-09] MEDS ORDERED: CONSULT PHARMACY - ANTIBIOTIC XX SCH (03:00)
[2023-06-09] MEDS ORDERED: CONSULT PHARMACY - POTASSIUM & MAGNESIUM XX SCH ×2 (03:00→07:00)
[2023-06-09] MEDS: PROVENTIL NEB TX 0.083% 2.5MG/ 3ML NEB SCH (04:30)
[2023-06-09 04:39] VITALS: BMI 23.8
[2023-06-09] MEDS: NS 500 ML IV 500 ML IV PRN (05:21)
[2023-06-09 05:47] LABS: BASOPHILS # (AUTO) 0.1 X10^3/uL (0.0-0.1); BASOPHILS % (AUTO) 0.5 % (0.2-1.0); EOSINOPHILS # (AUTO) 0.6 x10^3/uL (0.0-0.2); EOSINOPHILS % (AUTO) 4.6 % (0.9-2.9); HEMATOCRIT 33.7 % (42.0-54.0); HEMOGLOBIN 11.4 g/dL (13.5-18.0); LYMPHOCYTES # (AUTO) 0.6 X10^3/uL (1.3-2.9); LYMPHOCYTES % (AUTO) 4.8 % (21.0-51.0); MEAN CORPUSCULAR HEMOGLOBIN 30.4 pg (27.0-34.0); MEAN CORPUSCULAR HGB CONC 33.8 g/dL (33.0-35.0); MEAN PLATELET VOLUME 8.9 fL (7.4-11.0); MONOCYTES # (AUTO) 1.5 x10^3/uL (0.3-0.8); NEUTROPHILS # (AUTO) 9.9 x10^3/uL (2.2-4.8); NEUTROPHILS % (AUTO) 78.1 % (42.0-75.0); PLATELET COUNT 249 X10^3/uL (150.0-450.0); RED BLOOD COUNT 3.75 X10^6/uL (4.7-6.0); WHITE BLOOD COUNT 12.7 X10^3/uL (3.6-10.0)
[2023-06-09 05:59] LABS: ALANINE AMINOTRANSFERASE 31 Units/L (12-78); ALBUMIN 2.7 g/dL (3.4-5.0); ALKALINE PHOSPHATASE 88 Units/L (46-116); ASPARTATE AMINO TRANSFERASE 21 Units/L (15-37); BLOOD UREA NITROGEN 17 mg/dL (7-18); CALCIUM 8.3 mg/dL (8.5-10.1); CARBON DIOXIDE 21.1 mmol/L (21-32); CHLORIDE 108 mmol/L (98-107); COR CA(FOR HYPOALB) 9.3 mg/dL (8.5-10.1); CREATININE 0.98 mg/dL (0.70-1.30); GLUCOSE 107 mg/dL (65-99); POTASSIUM 3.7 mmol/L (3.5-5.1); SODIUM 142 mmol/L (136-145); TOTAL PROTEIN 6.3 g/dL (6.4-8.2); eGFR NON BLACK RACES > 60 (>60)
[2023-06-09] MEDS: K-DUR TAB 20 MEQ PO SCH (08:44)
[2023-06-09] MEDS: DUONEB 0.5 MG/3 MG (3 mL) NEB SCH (08:47)
[2023-06-09] MEDS: PULMICORT NEB TX 0.5 MG NEB SCH (08:47)
[2023-06-09] MEDS: TOPROL XL PO SCH (08:54)
[2023-06-09] MEDS: SYNTHROID 25 mcg TAB PO SCH (08:55)
[2023-06-09] MEDS: WELLBUTRIN XL 300 MG (DAILY) PO SCH (08:55)
[2023-06-09] MEDS ORDERED: DUONEB 0.5 MG/3 MG (3 mL) NEB SCH ×2 (09:00)
[2023-06-09] MEDS: PATIENT'S HOME MEDICATION (Prasugrel 10 mg tablet) PO SCH (09:11)
[2023-06-09] MEDS: PROVENTIL NEB TX 0.083% 2.5MG/ 3ML ONE (09:16)
[2023-06-09] MEDS: PLAVIX PO SCH (09:36)
[2023-06-09] MEDS: SOLU-Medrol 40 MG VIAL IVP SCH (09:45)
[2023-06-09] MEDS ORDERED: CIALIS PO SCH (10:00)
[2023-06-09] MEDS: PATIENT'S HOME MEDICATION PO SCH (10:24)
--- NOTE | 2023-06-09 14:26 | DR.H&P ---
H&P History & Physical for Day of: H&P Date: 06/09/23 Chief Complaint Chief Complaint: Shortness of breath Cough Allergies Allergies Allergy/AdvReac Type Severity Reaction Status Date / Time No Known Allergies Allergy Verified 06/05/23 15:40 History of Present Illness History of Present Illness: Patient is a 67-year-old male with a past medical history of COPD, CAD, hypertension, hyperlipidemia, hypothyroidism, presenting with cough and shortness of breath that has been progressively getting worse for the past 2 to 3 days. He does use home oxygen of 2 L intermittently at home. Labs/imaging: WBC 12.7, hemoglobin 11.4, platelets 249, sodium 142, potassium 3. 7, creatinine 0.98, glucose 107, troponin negative, blood cultures pending, AIT pending, chest x-ray was obtained that revealed: Chronic interstitial lung disease with superimposed peripheral alveolar infiltrates and a more prominent left lung base infiltrate. Ct chest was obtained that revealed: Aneurysmal dilatation of the ascending thoracic aorta measuring up to 4.6 cm. Marked emphysematous changes throughout the lungs with scattered interstitial fibrosis with bibasilar bronchiectasis. ABG: pH 7.52, pCO2 24, pO2 90, HCO3 19.6, O2 sat 98% on FiO2 40%. Patient admitted for pneumonia and COPD exacerbation. He is currently receiving IV antibiotics Zosyn, will continue. Scheduled bronchodi lators DuoNebs and Pulmicort. Will restart home medications. Respiratory therapy consult. Incentive spirometer. Wean/titrate oxygen as tolerated. Will start on IV Solu-Medrol 40 mg twice daily. Otherwise continue to closely monitor and follow-up labs/imaging. Past Medical History Past Medical History: Anxiety, COPD, Coronary Artery Disease, Depression, Dyslipidemia, GERD, Hypertension, Hypothyroidism and PUD Past Surgical History Surgical History: Angioplasty/Stents, Appendectomy and Cholecystectomy Family History Family Medical History: Cancer and Coronary Artery Disease Social History Alcohol Use: None Drug Use: None Medications Home Medications: Home Medications Medication Instructions Recorded Confirmed Type albuterol sulfate 2.5 mg/3 mL 3 ml inhalation Q6H PRN Wheezing 05/18/22 06/09/23 History (0.083 %) solution for nebulization aspirin 81 mg tablet,delayed 81 mg PO QDAY 05/18/22 06/09/23 History release atorvastatin 40 mg tablet 40 mg PO QHS 05/18/22 06/09/23 History bupropion HCl 300 mg 24 hr tablet, 300 mg PO QDAY 05/18/22 06/09/23 History extended release cetirizine 10 mg tablet (Zyrtec) 10 mg PO QHS 05/18/22 06/09/23 History fluticasone fur. 100 mcg-umeclid 1 puff inhalation QDAY 05/18/22 06/09/23 History 62.5 mcg-vilant 25 mcg inhalat.powder (Trelegy Ellipta) levothyroxine 25 mcg tablet 25 mcg PO QDAY 05/18/22 06/09/23 History metoprolol succinate 25 mg 25 mg PO QHS 05/18/22 06/09/23 History tablet,extended release 24 hr montelukast 10 mg tablet 10 mg PO QDAY 05/18/22 06/09/23 History polyethylene glycol 3350 17 gram 17 g PO QDAY PRN Constipation 05/18/22 06/09/23 History oral powder packet (Miralax) sucralfate 1 gram tablet 1 g PO QACHS 05/18/22 06/09/23 History tadalafil 5 mg tablet 5 mg PO QDAY 05/18/22 06/09/23 History bosutinib 100 mg capsule (Bosulif) 100 mg PO DAILY 04/30/23 06/09/23 History dextroamphetamine-amphetamine 20 20 mg PO QDAY 04/30/23 06/09/23 History mg tablet megestrol 40 mg tablet 40 mg PO BID 04/30/23 06/09/23 History cholecalciferol (vitamin D3) 50 50 mcg PO QDAY 06/09/23 06/09/23 History mcg (2,000 unit) capsule cyclobenzaprine 10 mg tablet 10 mg PO TID 06/09/23 06/09/23 History famotidine 40 mg tablet 40 mg PO BID 06/09/23 06/09/23 History ipratropium bromide 0.02 % 2.5 ml inhalation Q6H PRN 06/09/23 06/09/23 History solution for inhalation prasugrel 10 mg tablet 10 mg PO QDAY 06/09/23 06/09/23 History temazepam 15 mg capsule 15 mg PO QPM PRN 06/09/23 06/09/23 History Labs 06/09/23 05:22 06/09/23 05:22 Labs: Laboratory WBC 12.7 X10^3/uL (3.6-10.0) H 06/09/23 05:22 RBC 3.75 X10^6/uL (4.7-6.0) L 06/09/23 05:22 Hgb 11.4 g/dL (13.5-18.0) L 06/09/23 05:22 Hct 33.7 % (42.0-54.0) L 06/09/23 05:22 MCV 90.0 fL (80.0-100.0) 06/09/23 05:22 MCH 30.4 pg (27.0-34.0) 06/09/23 05:22 MCHC 33.8 g/dL (33.0-35.0) 06/09/23 05:22 RDW 14.0 % (11.6-16.5) 06/09/23 05:22 Plt Count 249 X10^3/uL (150.0-450.0) 06/09/23 05:22 MPV 8.9 fL (7.4-11.0) 06/09/23 05:22 Neut % (Auto) 78.1 % (42.0-75.0) H 06/09/23 05:22 Lymph % (Auto) 4.8 % (21.0-51.0) L 06/09/23 05:22 [place] % (Auto) 12.0 % (0.0-13.0) 06/09/23 05:22 Eos % (Auto) 4.6 % (0.9-2.9) H 06/09/23 05:22 Baso % (Auto) 0.5 % (0.2-1.0) 06/09/23 05:22 Neut # (Auto) 9.9 x10^3/uL (2.2-4.8) H 06/09/23 05:22 Lymph # (Auto) 0.6 X10^3/uL (1.3-2.9) L 06/09/23 05:22 [place] # (Auto) 1.5 x10^3/uL (0.3-0.8) H 06/09/23 05:22 Eos # (Auto) 0.6 x10^3/uL (0.0-0.2) H 06/09/23 05:22 Baso # (Auto) 0.1 X10^3/uL (0.0-0.1) 06/09/23 05:22 Absolute Nucleated RBC 0.0 /100WBC 06/09/23 05:22 D-Dimer 0.31 ug/ml (0.0-0.57) 06/08/23 23:54 Sample Site Lr 06/08/23 23:52 ABG pH 7.520 (7.35-7.45) H 06/08/23 23:52 ABG pCO2 24.0 mmHg (35.0-45.0) L 06/08/23 23:52 ABG pO2 90.0 mmHg (80.0-100.0) 06/08/23 23:52 ABG HCO3 19.6 mmol/L (22-26) L 06/08/23 23:52 ABG O2 Saturation 98.0 % (90-100) 06/08/23 23:52 ABG Base Excess -1.8 mmol/L (-2.0-2.0) 06/08/23 23:52 Cyrus Test Pos 06/08/23 23:52 A-a Gradient 165.0 mmHg 06/08/23 23:52 FiO2 40.0 06/08/23 23:52 Blood Gas Comments Abhay well ae 06/08/23 23:52 Sodium 142 mmol/L (136-145) 06/09/23 05:22 Corrected Sodium TNP 06/09/23 05:22 Potassium 3.7 mmol/L (3.5-5.1) 06/09/23 05:22 Chloride 108 mmol/L (98-107) H 06/09/23 05:22 Carbon Dioxide 21.1 mmol/L (21-32) 06/09/23 05:22 BUN 17 mg/dL (7-18) 06/09/23 05:22 Creatinine 0.98 mg/dL (0.70-1.30) 06/09/23 05:22 Est GFR (MDRD) Af Amer > 60 (>60) 06/09/23 05:22 Est GFR (MDRD) Non-Af > 60 (>60) 06/09/23 05:22 Glucose 107 mg/dL (65-99) H 06/09/23 05:22 Lactic Acid 1.1 mmol/L (0.4-2.0) 06/09/23 00:53 Calcium 8.3 mg/dL (8.5-10.1) L 06/09/23 05:22 Corrected Calcium 9.3 mg/dL (8.5-10.1) 06/09/23 05:22 Magnesium 2.1 mg/dL (2.0-2.9) 06/09/23 05:22 Total Bilirubin 0.60 mg/dL (0.2-1.0) 06/09/23 05:22 AST 21 Units/L (15-37) 06/09/23 05:22 ALT 31 Units/L (12-78) 06/09/23 05:22 Alkaline Phosphatase 88 Units/L (46-116) 06/09/23 05:22 Creatine Kinase 73 Units/L (39-308) 06/08/23 23:54 Troponin I High Sens 14.4 ng/L (4.0-60.0) 06/08/23 23:54 B-Natriuretic Peptide 88.8 pg/mL (0-79) H 06/08/23 23:54 Total Protein 6.3 g/dL (6.4-8.2) L 06/09/23 05:22 Albumin 2.7 g/dL (3.4-5.0) L 06/09/23 05:22 Globulin 3.6 g/dL (2.5-4.5) 06/09/23 05:22 Albumin/Globulin Ratio 0.8 Ratio (1.1-2.1) L 06/09/23 05:22 SARS-CoV-2 (PCR) Negative (NEGATIVE) 06/08/23 23:57 Influenza Type A (PCR) Negative (NEGATIVE) 06/08/23 23:57 Influenza Type B (PCR) Negative (NEGATIVE) 06/08/23 23:57 RSV (PCR) Negative (NEGATIVE) 06/08/23 23:57 Review of Systems Constitutional: Weakness Eyes: No Symptoms Reported ENT: No Symptoms Reported Respiratory: Cough and Shortness of Breath Cardiovascular: No Symptoms Reported Gastrointestinal: No Symptoms Reported Genitourinary: No Symptoms Reported Musculoskeletal: No Symptoms Reported Skin: No Symptoms Reported Neurological: No Symptoms Reported Physical Exam Vital Signs: Vital Signs Temperature 97.8 F Temperature 97.8 F Pulse Rate [Right] 71 Pulse Rate [Right] 86 Respiratory Rate 20 Respiratory Rate 20 Blood Pressure [Left Arm] 113/67 Blood Pressure [Right Arm] 111/62 O2 Sat by Pulse Oximetry 98 O2 Sat by Pulse Oximetry 95 O2 Sat by Pulse Oximetry 97 Oriented: Normal Eyes: Normal Ear: Normal Nose: Normal Throat: Normal Respiratory: Diminished Throughout and Rhonchi Throughout Cardiovascular: Normal : Normal Auscultation: Bowel Sounds: Normal Palpation: Normal Tenderness: Normal Skin: Normal Musculoskeletal: Normal Psychiatric: Normal Mood Description: Calm and Appropriate Affect: Normal Speech Pattern: Clear and Appropriate Assessment/Plan (1) Bilateral interstitial pneumonia: Status: Acute Plan: IV Zosyn Scheduled bronchodilators AIT pending (2) COPD exacerbation: Status: Acute (3) Thoracic aortic aneurysm (TAA): Status: Acute Plan: Will need cardiology referral outpatient. (4) Hypertension: Status: Acute (5) Hypothyroidism: Status: Acute (6) Hyperlipidemia: Status: Acute Review H&P Reviewed: Yes Patient was examined?: Yes
[2023-06-09] MEDS: MAALOX or MYLANTA PO PRN (16:56)
[2023-06-09] MEDS: LEVSIN/MAALOX/LIDOC VISC PO PRN (21:10)
[2023-06-09] MEDS: LIPITOR TAB 40 MG PO SCH (21:11)
[2023-06-09] MEDS: RESTORIL CAP 15 MG PO PRN (21:11)
--- NOTE | 2023-06-10 05:22 | RAD ---
EXAM:CHEST, 1 VIEWHISTORY:f/u;COMPARISON:06/09/2023 r.br.br.br stable.Similar bilateral airspace opacities. No pneumothorax or effusion.No acute osseous abnormality.IMPRESSION:Similar bilateral opacities which may reflect chronic changes. No definite acute airspace disease.THIS IS AN ELECTRONICALLY VERIFIED FINAL REPORT06/10/2023 5:19 AM - Electronically signed by Rajeev Clark MD
[2023-06-10 06:07] LABS: BASOPHILS % (AUTO) 0.2 % (0.2-1.0); HEMATOCRIT 34.8 % (42.0-54.0); HEMOGLOBIN 11.5 g/dL (13.5-18.0); LYMPHOCYTES # (AUTO) 0.4 X10^3/uL (1.3-2.9); LYMPHOCYTES % (AUTO) 3.5 % (21.0-51.0); MEAN CORPUSCULAR HEMOGLOBIN 30.1 pg (27.0-34.0); MEAN CORPUSCULAR HGB CONC 33.2 g/dL (33.0-35.0); MEAN CORPUSCULAR VOLUME 90.6 fL (80.0-100.0); MEAN PLATELET VOLUME 9.3 fL (7.4-11.0); MONOCYTES # (AUTO) 0.5 x10^3/uL (0.3-0.8); MONOCYTES % (AUTO) 4.5 % (0.0-13.0); NEUTROPHILS # (AUTO) 10.8 x10^3/uL (2.2-4.8); NEUTROPHILS % (AUTO) 91.8 % (42.0-75.0); PLATELET COUNT 263 X10^3/uL (150.0-450.0); RED BLOOD COUNT 3.84 X10^6/uL (4.7-6.0); WHITE BLOOD COUNT 11.8 X10^3/uL (3.6-10.0)
[2023-06-10 06:25] LABS: ALANINE AMINOTRANSFERASE 32 Units/L (12-78); ALBUMIN 2.7 g/dL (3.4-5.0); ALKALINE PHOSPHATASE 92 Units/L (46-116); ASPARTATE AMINO TRANSFERASE 21 Units/L (15-37); BLOOD UREA NITROGEN 19 mg/dL (7-18); CALCIUM 8.8 mg/dL (8.5-10.1); CARBON DIOXIDE 21.9 mmol/L (21-32); CHLORIDE 108 mmol/L (98-107); COR CA(FOR HYPOALB) 9.8 mg/dL (8.5-10.1); COR NA(FOR HYPERGLY) 144 mmol/L (136-145); GLUCOSE 122 mg/dL (65-99); MAGNESIUM 2.3 mg/dL (2.0-2.9); POTASSIUM 4.3 mmol/L (3.5-5.1); SODIUM 143 mmol/L (136-145); TOTAL PROTEIN 6.8 g/dL (6.4-8.2); eGFR NON BLACK RACES > 60 (>60)
[2023-06-10 06:35] LABS: PLATELET MORPHOLOGY COMMENT NORMAL (NORMAL)
[2023-06-10] MEDS: LOVENOX INJ 40 MG SYR SC SCH (09:26)
--- NOTE | 2023-06-10 10:04 | PCM.PROG ---
Progress Note Progress Note for Day of Date of Exam: 06/10/23 Subjective Subjective: Patient seen at bedside, no acute events overnight. He is currently being treated for acute respiratory failure due to COPD exacerbation and pneumonia. He has a hx of bronchiectasis, severe emphysema and pulmonary fibrosis. He is currently on 3L NC, weaned down from 4L. He has been getting b ronchodilators and IV Zosyn and Soulmedrol. He states he feels better, he did ambulate to the bathroom. He does have O2 at home but uses it prn and qHS. He does see Pulmonary and Cardiology outpatient. Labs/imaging reviewed - Resp panel pending -CXR: b/l opacities, similar to prior, no change. -CTPE: 4.6 cm ascending thoracic aorta aneurysm Plan: Wean O2 as tolerated, continue bronchodilators. Continue IV Zosyn and Solumedrol. PT/OT as tolerated. Advised to ambulate as tolerated. Discussed with patient that he may need to be on continuous O2 at home. Discussed results of CT and regarding aortic aneurysm. Patient would like to have a copy of CT report to take it to cardio. Continue home medications. Follow pending results. Monitor AM labs/imaging. Time spent for clinical assessment, reviewing labs/imaging, physical exam, decision making and documentation greater than 45 mins. Past Medical Family Social History Allergies: Allergies No Known Allergies Allergy (Verified 06/05/23 15:40) Vital Signs and I&O's Vital Signs: Vital Signs Temperature 97.4 F Temperature 99.1 F Pulse Rate [Right] 82 Pulse Rate [Right] 106 Pulse Rate 80 Respiratory Rate 20 Respiratory Rate 20 Blood Pressure [Left Arm] 130/69 Blood Pressure [Right Arm] 107/69 O2 Sat by Pulse Oximetry 97 O2 Sat by Pulse Oximetry 93 O2 Sat by Pulse Oximetry 99 Intake and Output: Intake & Output 06/07/23 06/08/23 06/09/23 06/10/23 23:59 23:59 23:59 23:59 Intake Total 1278 / 1278 129 / 129 Output Total 400 / 400 Balance 878 / 878 129 / 129 Physical Exam Oriented: Normal Eyes: Normal Ear: Normal Nose: Normal Throat: Normal Respiratory: Generalized, Diminished and Rales (dry-velcro crackles ) Cardiovascular: Normal Auscultation: Bowel Sounds: Normal Tenderness: Normal Skin: Normal Musculoskeletal: Normal Psychiatric: Normal Mood Description: Calm and Appropriate Affect: Normal Speech Pattern: Clear and Appropriate Laboratory and Diagnostics 06/10/23 05:10 06/10/23 05:10 Labs: Laboratory WBC 11.8 X10^3/uL (3.6-10.0) H 06/10/23 05:10 RBC 3.84 X10^6/uL (4.7-6.0) L 06/10/23 05:10 Hgb 11.5 g/dL (13.5-18.0) L 06/10/23 05:10 Hct 34.8 % (42.0-54.0) L 06/10/23 05:10 MCV 90.6 fL (80.0-100.0) 06/10/23 05:10 MCH 30.1 pg (27.0-34.0) 06/10/23 05:10 MCHC 33.2 g/dL (33.0-35.0) 06/10/23 05:10 RDW 14.0 % (11.6-16.5) 06/10/23 05:10 Plt Count 263 X10^3/uL (150.0-450.0) 06/10/23 05:10 Plt Count Comment Adequate (ADEQUATE) 06/10/23 05:10 MPV 9.3 fL (7.4-11.0) 06/10/23 05:10 Neut % (Auto) 91.8 % (42.0-75.0) H 06/10/23 05:10 Lymph % (Auto) 3.5 % (21.0-51.0) L 06/10/23 05:10 [place] % (Auto) 4.5 % (0.0-13.0) 06/10/23 05:10 Eos % (Auto) 0.0 % (0.9-2.9) L 06/10/23 05:10 Baso % (Auto) 0.2 % (0.2-1.0) 06/10/23 05:10 Neut # (Auto) 10.8 x10^3/uL (2.2-4.8) H 06/10/23 05:10 Lymph # (Auto) 0.4 X10^3/uL (1.3-2.9) L 06/10/23 05:10 [place] # (Auto) 0.5 x10^3/uL (0.3-0.8) 06/10/23 05:10 Eos # (Auto) 0.0 x10^3/uL (0.0-0.2) 06/10/23 05:10 Baso # (Auto) 0.0 X10^3/uL (0.0-0.1) 06/10/23 05:10 Absolute Nucleated RBC 0.0 /100WBC 06/10/23 05:10 Total Counted 100 06/10/23 05:10 Neutrophils % (Manual) 93 % (39-76) H 06/10/23 05:10 Lymphocytes % (Manual) 6 % (13-43) L 06/10/23 05:10 Monocytes % (Manual) 1 % (4-9) L 06/10/23 05:10 Plt Morphology Comment Normal (NORMAL) 06/10/23 05:10 RBC Morphology Normal (NORMAL) 06/10/23 05:10 D-Dimer 0.31 ug/ml (0.0-0.57) 06/08/23 23:54 Sample Site Lr 06/08/23 23:52 ABG pH 7.520 (7.35-7.45) H 06/08/23 23:52 ABG pCO2 24.0 mmHg (35.0-45.0) L 06/08/23 23:52 ABG pO2 90.0 mmHg (80.0-100.0) 06/08/23 23:52 ABG HCO3 19.6 mmol/L (22-26) L 06/08/23 23:52 ABG O2 Saturation 98.0 % (90-100) 06/08/23 23:52 ABG Base Excess -1.8 mmol/L (-2.0-2.0) 06/08/23 23:52 Cyrus Test Pos 06/08/23 23:52 A-a Gradient 165.0 mmHg 06/08/23 23:52 FiO2 40.0 06/08/23 23:52 Blood Gas Comments Abhay well ae 06/08/23 23:52 Sodium 143 mmol/L (136-145) 06/10/23 05:10 Corrected Sodium 144 mmol/L (136-145) 06/10/23 05:10 Potassium 4.3 mmol/L (3.5-5.1) 06/10/23 05:10 Chloride 108 mmol/L (98-107) H 06/10/23 05:10 Carbon Dioxide 21.9 mmol/L (21-32) 06/10/23 05:10 BUN 19 mg/dL (7-18) H 06/10/23 05:10 Creatinine 0.80 mg/dL (0.70-1.30) 06/10/23 05:10 Est GFR (MDRD) Af Amer > 60 (>60) 06/10/23 05:10 Est GFR (MDRD) Non-Af > 60 (>60) 06/10/23 05:10 Glucose 122 mg/dL (65-99) H 06/10/23 05:10 Lactic Acid 1.1 mmol/L (0.4-2.0) 06/09/23 00:53 Calcium 8.8 mg/dL (8.5-10.1) 06/10/23 05:10 Corrected Calcium 9.8 mg/dL (8.5-10.1) 06/10/23 05:10 Magnesium 2.3 mg/dL (2.0-2.9) 06/10/23 05:10 Total Bilirubin 0.40 mg/dL (0.2-1.0) 06/10/23 05:10 AST 21 Units/L (15-37) 06/10/23 05:10 ALT 32 Units/L (12-78) 06/10/23 05:10 Alkaline Phosphatase 92 Units/L (46-116) 06/10/23 05:10 Creatine Kinase 73 Units/L (39-308) 06/08/23 23:54 Troponin I High Sens 14.4 ng/L (4.0-60.0) 06/08/23 23:54 B-Natriuretic Peptide 88.8 pg/mL (0-79) H 06/08/23 23:54 Total Protein 6.8 g/dL (6.4-8.2) 06/10/23 05:10 Albumin 2.7 g/dL (3.4-5.0) L 06/10/23 05:10 Globulin 4.1 g/dL (2.5-4.5) 06/10/23 05:10 Albumin/Globulin Ratio 0.7 Ratio (1.1-2.1) L 06/10/23 05:10 SARS-CoV-2 (PCR) Negative (NEGATIVE) 06/08/23 23:57 Influenza Type A (PCR) Negative (NEGATIVE) 06/08/23 23:57 Influenza Type B (PCR) Negative (NEGATIVE) 06/08/23 23:57 RSV (PCR) Negative (NEGATIVE) 06/08/23 23:57 Plan (1) Bilateral interstitial pneumonia: Status: Acute (2) COPD exacerbation: Status: Acute (3) Thoracic aortic aneurysm (TAA): Status: Acute (4) Hypertension: Status: Acute Qualifiers: Hypertension type: primary hypertension Qualified Code(s): I10 - Essential (primary) hypertension (5) Hypothyroidism: Status: Acute Qualifiers: Hypothyroidism type: acquired Qualified Code(s): E03.9 - Hypothyroidism, unspecified (6) Hyperlipidemia: Status: Acute Qualifiers: Hyperlipidemia type: mixed hyperlipidemia Qualified Code(s): E78.2 - Mixed hyperlipidemia (7) Interstitial lung disease: Status: Acute
[2023-06-11 04:47] LABS: BASOPHILS % (AUTO) 0.2 % (0.2-1.0); HEMATOCRIT 32.4 % (42.0-54.0); HEMOGLOBIN 10.9 g/dL (13.5-18.0); LYMPHOCYTES # (AUTO) 0.5 X10^3/uL (1.3-2.9); LYMPHOCYTES % (AUTO) 2.7 % (21.0-51.0); MEAN CORPUSCULAR HEMOGLOBIN 30.5 pg (27.0-34.0); MEAN CORPUSCULAR HGB CONC 33.5 g/dL (33.0-35.0); MEAN CORPUSCULAR VOLUME 91.1 fL (80.0-100.0); MEAN PLATELET VOLUME 8.9 fL (7.4-11.0); MONOCYTES # (AUTO) 0.8 x10^3/uL (0.3-0.8); MONOCYTES % (AUTO) 4.6 % (0.0-13.0); NEUTROPHILS # (AUTO) 16.7 x10^3/uL (2.2-4.8); NEUTROPHILS % (AUTO) 92.5 % (42.0-75.0); PLATELET COUNT 271 X10^3/uL (150.0-450.0); RED BLOOD COUNT 3.56 X10^6/uL (4.7-6.0); RED CELL DISTRIBUTION WIDTH 14.2 % (11.6-16.5); WHITE BLOOD COUNT 18.1 X10^3/uL (3.6-10.0)
[2023-06-11 04:58] LABS: ALANINE AMINOTRANSFERASE 28 Units/L (12-78); ALBUMIN 2.4 g/dL (3.4-5.0); ALKALINE PHOSPHATASE 77 Units/L (46-116); ASPARTATE AMINO TRANSFERASE 18 Units/L (15-37); BLOOD UREA NITROGEN 21 mg/dL (7-18); CALCIUM 8.4 mg/dL (8.5-10.1); CHLORIDE 108 mmol/L (98-107); COR CA(FOR HYPOALB) 9.7 mg/dL (8.5-10.1); COR NA(FOR HYPERGLY) 142 mmol/L (136-145); CREATININE 0.85 mg/dL (0.70-1.30); GLUCOSE 118 mg/dL (65-99); POTASSIUM 4.4 mmol/L (3.5-5.1); SODIUM 142 mmol/L (136-145); TOTAL PROTEIN 6.2 g/dL (6.4-8.2); eGFR NON BLACK RACES > 60 (>60)
[2023-06-11 05:17] LABS: PLATELET MORPHOLOGY COMMENT NORMAL (NORMAL)
[2023-06-11] MEDS: PATIENT'S HOME MEDICATION PO SCH ×2 (09:17→09:18)
[2023-06-11 13:52] VITALS: BP 104/57; PULSE 72; RESP 22; TEMP 97.6; O2SAT 100
== END 2023-06-11 14:20 | disposition home or self-care (01) ==
LOC: ER 23:43 → MED/SURG 23:43
PROVIDERS: ADMIT Internal Medicine; ATTEND Internal Medicine
DX: E78.5 Hyperlipidemia, unspecified; I10 Essential (primary) hypertension; J84.89 Other specified interstitial pulmonary diseases; E03.8 Other specified hypothyroidism; I71.20 Thoracic aortic aneurysm, without rupture, unspecified; Z20.822 Contact with and (suspected) exposure to COVID-19; Z99.81 Dependence on supplemental oxygen; J84.178 Other interstitial pulmonary diseases with fibrosis in diseases classified elsewhere; R26.89 Other abnormalities of gait and mobility; Z79.01 Long term (current) use of anticoagulants; I25.10 Atherosclerotic heart disease of native coronary artery without angina pectoris; J44.1 Chronic obstructive pulmonary disease with (acute) exacerbation; R94.31 Abnormal electrocardiogram [ECG] [EKG]; J96.01 Acute respiratory failure with hypoxia

== ENCOUNTER 2023-07-28 07:57 | Inpatient (IN) ==
--- NOTE | 2023-07-28 08:13 | EKG ---
Test Reason : shortness of breath Blood Pressure : */* mmHG Vent. Rate : 119 BPM Atrial Rate : 119 BPM P-R Int : 142 ms QRS Dur : 140 ms QT Int : 346 ms P-R-T Axes : 27 1 -26 degrees QTc Int : 486 ms Sinus tachycardia Left bundle branch block Abnormal ECG When compared with ECG of 08-JUN-2023 23:45, Sinus rhythm has replaced Wide QRS tachycardia Confirmed by Robbi Irizarry MD ([id number]) on 07/29/2023 7:45:43 AM Referred By: Confirmed By: Robbi Irizarry MD
[2023-07-28 08:20] LABS: ABG BASE EXCESS -1.1 mmol/L (-2.0-2.0); ABG HCO3 20.7 mmol/L (22-26)
[2023-07-28 08:21] LABS: ABG ALLEN TEST POS
--- NOTE | 2023-07-28 08:22 | DR.SOBA ---
HPI Time Seen Time Seen by Provider: 07/28/23 08:12 Primary Care Physician Primary Care Physician: costa Johnson Chief Complaint Doctors Comments: Patient has a h/o leukemia diagnosed 1 yr ago and has been treated and is stable.He was d/c 3 weeks ago from [facility] after treatment of Aspiration Pneumonia. He lost 40lbs in a 2 month period and has been having difficulty eating. His welfare specialist told him that he may selin a G tube if he continued to have problems eating.Patient has been working with a speech therapist to improve his swallowing. Since d/c he has had pureed food,soft food,shakes.He has tolerated spaghetti and has been eating 2 meals daily. Saturday patient ate 2 pot pies that were not pureed. He had a 3rd one that night and began to have severe abdominal pain. The pain worsened today and the EMS were called. Patient had 02 in the low 80's on his 4L NC that he wears at home and stretching machine operator placed him on NRB mask 100% for transport. Patient states that the pain is so severe that he feels like he can't breathe. Patient denies: chest pain,back pain,fever,cough,dizziness,n,v. Chief Complaint:: patient states he started having sob and morrissey twisting pain abd pain in the umbilica area states it started about 10pm pain is so bad it takes his breathe away. patient denies N/V/D had a normal bowel movement yesterday. denies any chest pain COVID-19 Coronavirus risk:travel/contact w/high risk person: No Has patient experienced Coronavirus symptoms: Yes Coronavirus symptoms experienced: Shortness of Breath Source History Provided: Patient Mode of Arrival Mode of Arrival: Stretcher Timing Onset of Chief Complaint: 07/27/23 PMH PMH Past Medical History: Yes Past Medical History: Anxiety, COPD, Coronary Artery Disease, Depression, Dyslipidemia, GERD, Hypertension, Hypothyroidism and PUD Past Medical History Comment: fibrosis, leukemia Past Surgical History: Yes Surgical History: Angioplasty/Stents, Appendectomy and Cholecystectomy Family History History of Family Medical Conditions: Yes Family Medical History: Cancer and Coronary Artery Disease Social History Does patient currently use any type of tobacco product: No Have you used tobacco products in the last 12 months: No Do you use any recreational Drugs:: No Travel Risk Coronavirus risk:travel/contact w/high risk person: No Has patient experienced Coronavirus symptoms: Yes Coronavirus symptoms experienced: Shortness of Breath Infectious screening In the last 2 months have you had wt loss of >10#?: NO Have you had fever, night sweats or hemotysis?: No Have you traveled outside the country in the last 6 months?: No Isolation: Standard ROS Review of Systems Constitutional: Diaphoresis Eyes: No Symptoms Reported ENTM: No Symptoms Reported Respiratoy: No Symptoms Reported Cardiovascular: No Symptoms Reported Gastrointestinal/Abdominal: Abdominal Pain (epigastric); negative Nausea or Vomiting Genitourinary: No Symptoms Reported Neurological: No Symptoms Reported Musculoskeletal: No Symptoms Reported Integumentary: No Symptoms Reported Hematologic/Lymphatic: No Symptoms Reported Endocrine: No Symptoms Reported Psychiatric: No Symptoms Reported All Other Systems: Reviewed and Negative PE Vital Signs Vitals: Vital Signs Temperature 97.8 F Pulse Rate 88 Pulse Rate 86 Pulse Rate 81 Pulse Rate 81 Pulse Rate 82 Pulse Rate 83 Pulse Rate 88 Pulse Rate 90 Pulse Rate 89 Pulse Rate 94 Pulse Rate 87 Pulse Rate 90 Pulse Rate 92 Pulse Rate 95 Pulse Rate 96 Pulse Rate 108 Pulse Rate 115 Pulse Rate 120 Pulse Rate 118 Pulse Rate 120 Pulse Rate 114 Respiratory Rate 31 Respiratory Rate 43 Respiratory Rate 54 Respiratory Rate 37 Respiratory Rate 38 Respiratory Rate 60 Respiratory Rate 64 Respiratory Rate 51 Respiratory Rate 54 Respiratory Rate 55 Respiratory Rate 48 Respiratory Rate 60 Respiratory Rate 53 Respiratory Rate 52 Respiratory Rate 43 Respiratory Rate 32 Respiratory Rate 32 Respiratory Rate 55 Respiratory Rate 61 Respiratory Rate 51 Respiratory Rate 48 Respiratory Rate 35 Blood Pressure 113/81 Blood Pressure 118/74 Blood Pressure 112/75 Blood Pressure 111/67 Blood Pressure 114/75 Blood Pressure 109/76 Blood Pressure 112/74 Blood Pressure 110/78 Blood Pressure 110/78 Blood Pressure 110/78 Blood Pressure 110/78 Blood Pressure 108/75 Blood Pressure 103/82 Blood Pressure 97/64 O2 Sat by Pulse Oximetry 100 O2 Sat by Pulse Oximetry 100 O2 Sat by Pulse Oximetry 100 O2 Sat by Pulse Oximetry 100 O2 Sat by Pulse Oximetry 99 O2 Sat by Pulse Oximetry 96 O2 Sat by Pulse Oximetry 99 O2 Sat by Pulse Oximetry 99 O2 Sat by Pulse Oximetry 97 O2 Sat by Pulse Oximetry 100 O2 Sat by Pulse Oximetry 100 O2 Sat by Pulse Oximetry 100 O2 Sat by Pulse Oximetry 100 O2 Sat by Pulse Oximetry 100 O2 Sat by Pulse Oximetry 100 O2 Sat by Pulse Oximetry 100 O2 Sat by Pulse Oximetry 98 O2 Sat by Pulse Oximetry 96 O2 Sat by Pulse Oximetry 92 O2 Sat by Pulse Oximetry 93 O2 Sat by Pulse Oximetry 96 O2 Sat by Pulse Oximetry 98 General Limitations: No Limitations General Appearance: Alert and In Distress Head Head Exam: Normal Inspection Eyes Eye exam: Normal Appearance ENT ENT Exam: Normal Exam Neck Neck Exam: Normal Inspection Chest Chest Inspection: Normal Inspection Respiratory Respiratory Exam: Accessory Muscle Use Respiratory Exam: Bilateral: Decreased Breath Sounds Cardiovascular Cardiovascular Exam: Regular Rate and Tachycardia Abdominal Exam Abdominal Exam: Soft, Tenderness, Guarding and Hypoactive Bowel Sounds Abdominal Tenderness: Epigastrium Extremities Extremities Exam: Normal Inspection Back Back Exam: Normal Inspection Neurologic Neurological Exam: Alert and Oriented X3 Psychiatric Psychiatric Exam: Normal Affect and Normal Mood Skin Skin Exam: Warm, Dry, Intact and Normal Color MDM Differential Diagnosis Differential Diagnosis: CHF, Mycardial Infarction and Pneumonia Differential Diagnosis Comment:: obstr,perf,bowel ischemia,Inflam BD,pancreatitis,electrolyte disorder COURSE Treatment Treatment: 08:12 Evaluated Patient. EKG being done,abg being done,labs ordered/test ordered. 08:25 Patient with severe epigastric abdl pain.He has bp 97/60.NS bolus administered. Pepcid 20mg iv,dicyclomine 10mg im ordered.ABG PH7.5/PC02 26/P02 59/HC03 20.7/02 sat 93% on 3L. Patient placed on Bipap 08:48 Patient's bp 103/67 Patient given dilaudid 1mg iv. 09:05 Patient transported to [place].Creat 0.75,Wbc 18. Admitted for tx of Pneumonia to [facility] had high dose steriods/iv antbiotics/sent out on steriods. Elevated wbc may be secondary to steroid use,dehydration. 10:[address] Barboza ( General Surgeon). He will evaluate pat ient for G tube placement. 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 Patient has been stable in the ED. ROR Labs Reviewed Laboratory Results Reviewed?: Yes 07/28/23 08:29 07/28/23 08:29 Laboratory: WBC 18.0 X10^3/uL (3.6-10.0) H 07/28/23 08:29 RBC 3.41 X10^6/uL (4.7-6.0) L 07/28/23 08: Hgb 10.1 g/dL (13.5-18.0) L 07/28/23 08: Hct 31.1 % (42.0-54.0) L 07/28/23 08: MCV 91.2 fL (80.0-100.0) 07/28/23 08: MCH 29.5 pg (27.0-34.0) 07/28/23 08: MCHC 32.3 g/dL (33.0-35.0) L 07/28/23 08: RDW 15.2 % (11.6-16.5) 07/28/23 08: Plt Count 527 X10^3/uL (150.0-450.0) H 07/28/23 08: MPV 8.1 fL (7.4-11.0) 07/28/23 08: Neut % (Auto) 77.3 % (42.0-75.0) H 07/28/23 08: Lymph % (Auto) 9.9 % (21.0-51.0) L 07/28/23 08: Ramsey % (Auto) 9.0 % (0.0-13.0) 07/28/23 08: Eos % (Auto) 3.2 % (0.9-2.9) H 07/28/23 08: Baso % (Auto) 0.6 % (0.2-1.0) 07/28/23 08:29 Neut # (Auto) 13.9 x10^3/uL (2.2-4.8) H 07/28/23 08: Lymph # (Auto) 1.8 X10^3/uL (1.3-2.9) 07/28/23 08: Ramsey # (Auto) 1.6 x10^3/uL (0.3-0.8) H 07/28/23 08: Eos # (Auto) 0.6 x10^3/uL (0.0-0.2) H 07/28/23 08:29 Baso # (Auto) 0.1 X10^3/uL (0.0-0.1) 07/28/23 08:29 Absolute Nucleated RBC 0.0 /100WBC 07/28/23 08:29 Sample Site Rrad 07/28/23 08:16 ABG pH 7.510 (7.35-7.45) H 07/28/23 08:16 ABG pCO2 26.0 mmHg (35.0-45.0) L 07/28/23 08:16 ABG pO2 59.0 mmHg (80.0-100.0) L 07/28/23 08:16 ABG HCO3 20.7 mmol/L (22-26) L 07/28/23 08:16 ABG O2 Saturation 93.0 % (90-100) 07/28/23 08:16 ABG Base Excess -1.1 mmol/L (-2.0-2.0) 07/28/23 08:16 Cyrus Test Pos 07/28/23 08:16 A-a Gradient 165.0 mmHg 07/28/23 08:16 FiO2 36.0 07/28/23 08:16 Blood Gas Comments Pt kenney well elj cdn 07/28/23 08:16 Sodium 141 mmol/L (136-145) 07/28/23 08:29 Corrected Sodium TNP 07/28/23 08:29 Potassium 5.0 mmol/L (3.5-5.1) 07/28/23 08:29 Chloride 106 mmol/L (98-107) 07/28/23 08:29 Carbon Dioxide 23.7 mmol/L (21-32) 07/28/23 08:29 BUN 42 mg/dL (7-18) H 07/28/23 08:29 Creatinine 0.75 mg/dL (0.70-1.30) 07/28/23 08:29 Est GFR (MDRD) Af Amer > 60 (>60) 07/28/23 08:29 Est GFR (MDRD) Non-Af > 60 (>60) 07/28/23 08:29 Glucose 108 mg/dL (65-99) H 07/28/23 08:29 Lactic Acid 0.9 mmol/L (0.4-2.0) 07/28/23 10:34 Calcium 9.2 mg/dL (8.5-10.1) 07/28/23 08:29 Corrected Calcium 10.4 mg/dL (8.5-10.1) H 07/28/23 08:29 Total Bilirubin 0.30 mg/dL (0.2-1.0) 07/28/23 08:29 AST 23 Units/L (15-37) 07/28/23 08:29 ALT 43 Units/L (12-78) 07/28/23 08:29 Alkaline Phosphatase 83 Units/L (46-116) 07/28/23 08:29 Creatine Kinase 37 Units/L (39-308) L 07/28/23 08:29 Troponin I High Sens 20.2 ng/L (4.0-60.0) 07/28/23 12:30 Total Protein 5.8 g/dL (6.4-8.2) L 07/28/23 08:29 Albumin 2.5 g/dL (3.4-5.0) L 07/28/23 08:29 Globulin 3.3 g/dL (2.5-4.5) 07/28/23 08:29 Albumin/Globulin Ratio 0.8 Ratio (1.1-2.1) L 07/28/23 08:29 Amylase 24 Units/L (25-115) L 07/28/23 08:29 Lipase 37 Units/L (16-77) 07/28/23 08:29 EKG Compared to prior EKG Dated: 07/28/23 Rate: 119 [place]: Normal Rhythm: ST Block: LBBB (since 06/15) Opioid Opioid Risk Tool Age (Lan box if 16-45): No History of Preadolescent Sexual Abuse: No Total: 0 Total Score Risk Category: Low Risk Copyright: Alpesh HODGES predicting aberrant behaviors Discharge Plan Diagnosis Discharge Problem: Acute exacerbation of chronic obstructive pulmonary disease, Abdominal pain, Hypoxemia Discharge Plan Patient Disposition: 09 ADMITTED INPATIENT Condition: Stable Prescriptions: No Action megestrol 40 mg tablet 40 mg PO BID temazepam 15 mg capsule 15 mg PO QPM PRN prasugrel 10 mg tablet 10 mg PO QDAY famotidine 40 mg tablet 40 mg PO BID Rx Instructions: TAKE ONE TABLET TWICE A DAY atorvastatin 40 mg tablet 40 mg PO QHS albuterol sulfate 2.5 mg /3 mL (0.083 %) solution for nebulization 3 ml inhalation Q6H PRN (Reason: Wheezing) Patient Comments: [NO ORIGINAL SIG] levothyroxine 25 mcg tablet 25 mcg PO QDAY montelukast 10 mg tablet 10 mg PO QDAY metoprolol succinate 25 mg tablet extended release 24 hr 25 mg PO QHS bupropion HCl 300 mg tablet extended release 24 hr 300 mg PO QDAY Trelegy Ellipta 100-62.5-25 mcg blister with device 1 puff inhalation QDAY tadalafil 5 mg Tablet 5 mg PO QDAY Health Concerns: Post Hospitalization: new medications and changes needed to prevent readmission or further decline. Pt educated and given instructions on all concerns. Plan of Treatment: Continue with present treatment and follow up plan. Pt is to keep follow up appointment as instructed and take medications as ordered. Orders to Discharge Patient Discharge Orders: Transfer (Routine); Ordered 07/28/23 Ordered By: Emilee Smith Follow ups/Referrals Follow ups/Referrals: Wero Sanchez [Primary Care Provider] - 3 days Instructions Stand Alone Forms: Post Hospital Follow Up Care ADDITIONAL NOTES Additional Notes Additional Notes: EKG #2 HR 91 [place] nml Rhythm NSR LBBB
[2023-07-28] MEDS: NS 1,000 ML IV 1,000 ML IV ONE (08:33)
[2023-07-28] MEDS: BENTYL I.M. INJ 10 MG IM ONE (08:33)
[2023-07-28] MEDS: PEPCID 20 MG VIAL IVP ONE (08:33)
[2023-07-28 08:39] LABS: BASOPHILS # (AUTO) 0.1 X10^3/uL (0.0-0.1)
[2023-07-28] MEDS ORDERED: LEVOPHED 8 MG/250 ML IV *PREMIX 8 MG/250 ML PLAST..BAG IV PRN (08:39)
[2023-07-28 08:44] LABS: BASOPHILS % (AUTO) 0.6 % (0.2-1.0); EOSINOPHILS # (AUTO) 0.6 x10^3/uL (0.0-0.2); EOSINOPHILS % (AUTO) 3.2 % (0.9-2.9); HEMATOCRIT 31.1 % (42.0-54.0); HEMOGLOBIN 10.1 g/dL (13.5-18.0); LYMPHOCYTES # (AUTO) 1.8 X10^3/uL (1.3-2.9); LYMPHOCYTES % (AUTO) 9.9 % (21.0-51.0); MEAN CORPUSCULAR HEMOGLOBIN 29.5 pg (27.0-34.0); MEAN CORPUSCULAR HGB CONC 32.3 g/dL (33.0-35.0); MEAN CORPUSCULAR VOLUME 91.2 fL (80.0-100.0); MEAN PLATELET VOLUME 8.1 fL (7.4-11.0); MONOCYTES # (AUTO) 1.6 x10^3/uL (0.3-0.8); NEUTROPHILS # (AUTO) 13.9 x10^3/uL (2.2-4.8); NEUTROPHILS % (AUTO) 77.3 % (42.0-75.0); PLATELET COUNT 527 X10^3/uL (150.0-450.0); RED BLOOD COUNT 3.41 X10^6/uL (4.7-6.0); RED CELL DISTRIBUTION WIDTH 15.2 % (11.6-16.5)
[2023-07-28] MEDS: DILAUDID INJ IVP ONE (08:54)
[2023-07-28] MEDS: DILAUDID INJ IM ONE (08:56)
[2023-07-28 08:59] LABS: ALANINE AMINOTRANSFERASE 43 Units/L (12-78); ALBUMIN 2.5 g/dL (3.4-5.0); ALKALINE PHOSPHATASE 83 Units/L (46-116); ASPARTATE AMINO TRANSFERASE 23 Units/L (15-37); BLOOD UREA NITROGEN 42 mg/dL (7-18); CALCIUM 9.2 mg/dL (8.5-10.1); CARBON DIOXIDE 23.7 mmol/L (21-32); CHLORIDE 106 mmol/L (98-107); COR CA(FOR HYPOALB) 10.4 mg/dL (8.5-10.1); CREATINE KINASE 37 Units/L (39-308); CREATININE 0.75 mg/dL (0.70-1.30); GLUCOSE 108 mg/dL (65-99); SODIUM 141 mmol/L (136-145); TOTAL PROTEIN 5.8 g/dL (6.4-8.2); eGFR NON BLACK RACES > 60 (>60)
[2023-07-28 09:00] LABS: AMYLASE 24 Units/L (25-115); LIPASE 37 Units/L (16-77)
[2023-07-28] MEDS: ZOFRAN INJ 4 MG VIAL IVP ONE (09:06)
--- NOTE | 2023-07-28 10:06 | CT ---
EXAM:CT chest, abdomen and pelvis with contrastHISTORY:Shortness of breath, periumbilical pain.COMPARISON:CT chest from 06/09/2023. CT abdomen and pelvis from 06/19/2022.TECHNIQUE:Axial, coronal and sagittal CT imaging was performed through the chest, abdomen and pelvis after administration of IV contrast. 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 Mild aortic calcification. No acute findings.MEDIASTINUM: No significant abnormality.LUNGS: No acute findings. Unchanged severe emphysema and pulmonary fibrosis.BONES: Mild spondylosis.ADDITIONAL FINDINGS: None.ABDOMEN/PELVIS:LIVER: No significant abnormality.BILIARY: Cholecystectomy without biliary ductal dilatation.PANCREAS: No significant abnormality.ADRENALS: No significant abnormality.SPLEEN: No significant abnormality.KIDNEYS: No significant abnormality.GI TRACT: Large amount of stool along the colon without other abnormalities. Nonvisualization of the appendix.PERITONEUM: No free fluid, free air or fluid collection.VASCULATURE:Moderate atherosclerosis. No acute findings.LYMPH NODES: No adenopathy.BLADDER: No significant abnormality.REPRODUCTIVE ORGANS: No significant abnormality.BONES: Moderate degenerative changes of the spine with mild degenerative changes of the pelvis.ADDITIONAL FINDINGS: None.IMPRESSION:1. No acute findings accounting for the patient's complaints.2. Evidence of constipation with other findings as above.THIS IS AN ELECTRONICALLY VERIFIED FINAL REPORT07/28/2023 10:02 AM - Electronically signed by Dennis Stanley MD
--- NOTE | 2023-07-28 10:06 | CT ---
EXAM: CT chest, abdomen and pelvis with contrast HISTORY: Shortness of breath, periumbilical pain. COMPARISON: CT chest from 06/09/2023. CT abdomen and pelvis from 06/19/2022. TECHNIQUE: Axial, coronal and sagittal CT imaging was performed through the chest, abdomen and pelvis after admi nistration of IV contrast. 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 Mild aortic calcification . No acute findings. MEDIASTINUM: No significant abnormality. LUNGS: No acute findings. Unchanged severe emphysema and pulmonary fibrosis. BONES: Mild spondylosis. ADDITIONAL FINDINGS: None. ABDOMEN/PELVIS: LIVER: No significant abnormality. BILIARY: Cholecystectomy without biliary ductal dilatation. PANCREAS: No significant abnormality. ADRENALS: No significant abnormality. SPLEEN: No significant abnormality. KIDNEYS: No significant abnormality. GI TRACT: Large amount of stool along the colon without other abnormalities. Nonvisualization of the appendix. PERITONEUM: No free fluid, free air or fluid collection. VASCULATURE:Moderate atherosclerosis. No acute findings. LYMPH NODES: No adenopathy. BLADDER: No significant abnormality. REPRODUCTIVE ORGANS: No significant abnormality. BONES: Moderate degenerative changes of the spine with mild degenerative changes of the pelvis. ADDITIONAL FINDINGS: None. IMPRESSION: 1. No acute findings accounting for the patient's complaints. 2. Evidence of constipation with other findings as above. THIS IS AN ELECTRONICALLY VERIFIED FINAL REPORT 07/28/2023 10:02 AM - Electronically signed by Dennis Stanley MD
[2023-07-28] MEDS ORDERED: NS 250 ML IV 25 ML IV PRN (10:13)
[2023-07-28] MEDS: ZOSYN VIAL 3.375 GRAMS 3.375 G in NS 100 ML IV 100 ML IV ONE (10:24)
--- NOTE | 2023-07-28 10:52 | RAD ---
EXAM: Portable AP chest HISTORY: Dyspnea COMPARISON: 06/18/2023, chest CT 07/28/2023 FINDINGS: Heart size normal. Diffuse bilateral interstitial increase without evidence for dominant mass, loba r consolidation or pleural effusion. Left upper abdomen bowel distention may be responsible for slig ht elevation of the diaphragm. IMPRESSION: No acute findings. Bilateral interstitial lung disease consistent with emphysema and fibrosis as de scribed on recent CT imaging. THIS IS AN ELECTRONICALLY VERIFIED FINAL REPORT 07/28/2023 10:48 AM - Electronically signed by Alvaro Bella MD
[2023-07-28] MEDS: SOLU-Medrol 125 MG VIAL IVP ONE (12:28)
--- NOTE | 2023-07-28 12:41 | EKG ---
Test Reason : sob Blood Pressure : */* mmHG Vent. Rate : 91 BPM Atrial Rate : 91 BPM P-R Int : 150 ms QRS Dur : 142 ms QT Int : 392 ms P-R-T Axes : 0 -2 48 degrees QTc Int : 482 ms Normal sinus rhythm Left bundle branch block Abnormal ECG When compared with ECG of 28-JUL-2023 08:10, (Unconfirmed) No significant change was found Confirmed by Robbi Irizarry MD ([id number]) on 07/29/2023 7:45:38 AM Referred By: Confirmed By: Robbi Irizarry MD
[2023-07-28] MEDS ORDERED: RESTORIL CAP 15 MG PO PRN (14:29)
[2023-07-28] MEDS ORDERED: PROVENTIL NEB TX 0.083% 2.5MG/ 3ML NEB SCH (14:29)
[2023-07-28] MEDS ORDERED: CONSULT PHARMACY - POTASSIUM & MAGNESIUM XX SCH (14:29)
[2023-07-28] MEDS: SOLU-Medrol 40 MG VIAL IVP SCH (14:35)
[2023-07-28] MEDS: ZOSYN VIAL 3.375 GRAMS 3.375 G in NS 100 ML IV 100 ML IV SCH (14:37)
[2023-07-28] MEDS ORDERED: ULTRAM PO PRN (14:43)
[2023-07-28] MEDS ORDERED: TYLENOL 325 MG TAB PO PRN (14:43)
[2023-07-28] MEDS: NORCO 5/325 MG TAB PO PRN (15:23)
[2023-07-28] MEDS: NS 1,000 ML IV 1,000 ML IV SCH (15:23)
[2023-07-28] MEDS: DUONEB 0.5 MG/3 MG (3 mL) NEB SCH (16:21)
[2023-07-28] MEDS ORDERED: ZOFRAN INJ 4 MG VIAL ONE (17:06)
[2023-07-28] MEDS: DILAUDID INJ IVP PRN (17:13)
[2023-07-28] MEDS: ZOFRAN INJ 4 MG VIAL ONE (17:13)
[2023-07-28] MEDS: ZOFRAN INJ 4 MG VIAL IVP PRN (17:13)
[2023-07-28] MEDS ORDERED: DUONEB 0.5 MG/3 MG (3 mL) NEB SCH (18:00)
[2023-07-28] MEDS ORDERED: Atrovent NEB TX 0.02% NEB SCH (18:00)
[2023-07-28] MEDS: MEGACE PO SCH (20:48)
[2023-07-28] MEDS: TOPROL XL PO SCH (20:48)
[2023-07-28] MEDS: LIPITOR TAB 40 MG PO SCH (20:48)
[2023-07-28] MEDS: NS 250 ML IV 25 ML IV PRN (21:15)
[2023-07-29 06:12] LABS: BASOPHILS % (AUTO) 0.2 % (0.2-1.0); HEMATOCRIT 24.7 % (42.0-54.0); LYMPHOCYTES % (AUTO) 5.5 % (21.0-51.0); MEAN CORPUSCULAR HEMOGLOBIN 29.5 pg (27.0-34.0); MEAN CORPUSCULAR HGB CONC 32.3 g/dL (33.0-35.0); MEAN CORPUSCULAR VOLUME 91.5 fL (80.0-100.0); MEAN PLATELET VOLUME 8.9 fL (7.4-11.0); MONOCYTES # (AUTO) 0.9 x10^3/uL (0.3-0.8); MONOCYTES % (AUTO) 4.9 % (0.0-13.0); NEUTROPHILS # (AUTO) 16.5 x10^3/uL (2.2-4.8); NEUTROPHILS % (AUTO) 89.4 % (42.0-75.0); PLATELET COUNT 459 X10^3/uL (150.0-450.0); RED CELL DISTRIBUTION WIDTH 15.3 % (11.6-16.5); WHITE BLOOD COUNT 18.5 X10^3/uL (3.6-10.0)
[2023-07-29 06:41] LABS: ALANINE AMINOTRANSFERASE 45 Units/L (12-78); ALBUMIN 2.3 g/dL (3.4-5.0); ALKALINE PHOSPHATASE 70 Units/L (46-116); ASPARTATE AMINO TRANSFERASE 26 Units/L (15-37); BLOOD UREA NITROGEN 34 mg/dL (7-18); CALCIUM 8.6 mg/dL (8.5-10.1); CARBON DIOXIDE 20.8 mmol/L (21-32); CHLORIDE 109 mmol/L (98-107); CREATININE 0.94 mg/dL (0.70-1.30); GLUCOSE 109 mg/dL (65-99); POTASSIUM 4.1 mmol/L (3.5-5.1); SODIUM 141 mmol/L (136-145); TOTAL PROTEIN 5.9 g/dL (6.4-8.2); eGFR NON BLACK RACES > 60 (>60)
[2023-07-29] MEDS: NS 50 ML IV 50 ML IV ONE (07:05)
[2023-07-29] MEDS: D5W 250 ML IV 0 ML IV ONE (07:06)
[2023-07-29] MEDS: DILAUDID INJ ONE (07:06)
[2023-07-29] MEDS: OMNIPAQUE 350 mg/mL 100 mL BTL 100 ML ONE (07:06)
[2023-07-29] MEDS: LEVOPHED INJ (VIAL) ONE (07:06)
[2023-07-29] MEDS: OMNIPAQUE 350 mg/mL 50 mL BTL 50 ML ONE (07:07)
[2023-07-29] MEDS: SOLU-Medrol 125 MG VIAL ONE (07:07)
[2023-07-29] MEDS: DUONEB 0.5 MG/3 MG (3 mL) NEB ONE (07:07)
[2023-07-29] MEDS: NS 500 ML IV 500 ML IV ONE (08:26)
[2023-07-29] MEDS ORDERED: KETAMINE HCL ONE (08:41)
[2023-07-29] MEDS: DIPRIVAN VIAL 20 ML ONE ×2 (08:48→09:08)
[2023-07-29] MEDS ORDERED: TADALAFIL 5 MG PO SCH (09:00)
[2023-07-29] MEDS ORDERED: PATIENT'S HOME MEDICATION (Aspirin 81 mg Tablet) PO SCH (09:45)
[2023-07-29] MEDS: MORPHINE SULFATE INJ 2 MG INJ IVP PRN (09:45)
[2023-07-29] MEDS ORDERED: PEPCID 20 MG VIAL 20 MG in NS 50 ML IV 50 ML IV SCH (09:47)
--- NOTE | 2023-07-29 09:49 | DR.H&P ---
H&P History & Physical for Day of: H&P Date: 07/29/23 Chief Complaint Chief Complaint: SOB, dysphagia Allergies Allergies Allergy/AdvReac Type Severity Reaction Status Date / Time No Known Allergies Allergy Verified 06/05/23 15:40 History of Present Illness History of Present Illness: Mr Olivera is a 68y/o male with a PMH of CAD, Severe emphysema/fibrosis, CML, HTN, GERD presented with worsening sob and abdominal pain. Patient was recently discharged from [place] after being treated for aspiration pneumonia. He completed antibiotics and steroids a few days ago. He has had trouble with swallowing and underwent testing in [place], he was seen by speech therapy and recommended pureed foods. Patient had home health services including PT and speech therapy set up outpatient. He has been tolerating mashed foods. He lost 40 lbs in a year and was told by Pulmonary that he is high risk for aspiration. He was told that he will likely need PEG tube placed for nutri tion. Patient ate pot pie on Saturday and started having worsening abdominal pain. He came the ER for further evaluation and to have G-tube placed. He was also noted be hypoxic, ABG showed pO2 59. He was started on IV antibiotics and steroids. CTAP showed constipation. Dr Allen was consulted. Labs/imaging reviewed: -WBC 18.5 Hgb 8.0 BUN/Cr: 34/0.94 -AB.51/26/59/20.7 -CXR: emphysema/fibrosis Plan: Wean O2 as tolerated. Gentle hydration. Continue IV antibiotics, steroids and bronchodilators. Follow surgery recommendations. PEG tube placement. NPO for now. Replace electrolytes as per protocol. Resume home medications when able. Speech therapy consult. Monitor AM labs/imaging. Patient was taken to OR in the AM for PEG tube placement, tolerating procedure well. Continue pain control. Time spent for clinical assessment, reviewing labs/imaging, physical exam, documentation and decision making greater than 45 mins. Past Medical History Past Medical History: Anxiety, COPD, Coronary Artery Disease, Depression, Dyslipidemia, GERD, Hypertension, Hypothyroidism and PUD Past Surgical History Surgical History: Angioplasty/Stents, Appendectomy and Cholecystectomy Family History Family Medical History: Cancer and Coronary Artery Disease Social History Does patient currently use any type of tobacco product: No Have you used tobacco products in the last 12 months: No Type of Tobacco Use: None Alcohol Use: None Drug Use: None Medications Home Medications: Home Medications Medication Instructions Recorded Confirmed Type albuterol sulfate 2.5 mg/3 mL 3 ml inhalation Q6H PRN Wheezing 05/18/22 07/28/23 History (0.083 %) solution for nebulization atorvastatin 40 mg tablet 40 mg PO QHS 05/18/22 07/28/23 History bupropion HCl 300 mg 24 hr tablet, 300 mg PO QDAY 05/18/22 07/28/23 History extended release fluticasone fur. 100 mcg-umeclid 1 puff inhalation QDAY 05/18/22 07/28/23 History 62.5 mcg-vilant 25 mcg inhalat.powder (Trelegy Ellipta) levothyroxine 25 mcg tablet 25 mcg PO QDAY 05/18/22 07/28/23 History metoprolol succinate 25 mg 25 mg PO QHS 05/18/22 07/28/23 History tablet,extended release 24 hr montelukast 10 mg tablet 10 mg PO QDAY 05/18/22 07/28/23 History tadalafil 5 mg tablet 5 mg PO QDAY 05/18/22 07/28/23 History megestrol 40 mg tablet 40 mg PO BID 04/30/23 07/28/23 History famotidine 40 mg tablet 40 mg PO BID 06/09/23 07/28/23 History prasugrel 10 mg tablet 10 mg PO QDAY 06/09/23 07/28/23 History temazepam 15 mg capsule 15 mg PO QPM PRN 06/09/23 07/28/23 History aspirin 81 mg tablet 81 mg PO DAILY 07/28/23 07/28/23 History bosutinib 400 mg tablet (Bosulif) 400 mg PO DAILY 07/28/23 07/28/23 History cetirizine 10 mg tablet (Zyrtec) 10 mg PO DAILY 07/28/23 07/28/23 History cyclobenzaprine 10 mg tablet 10 mg PO TID PRN Muscle Spasm 07/28/23 07/28/23 History dextroamphetamine-amphetamine 20 20 mg PO AC 07/28/23 07/28/23 History mg tablet (Adderall) Labs 07/29/23 05:40 07/29/23 05:40 Labs: Laboratory WBC 18.5 X10^3/uL (3.6-10.0) H 07/29/23 05:40 RBC 2.70 X10^6/uL (4.7-6.0) L 07/29/23 05:40 Hgb 8.0 g/dL (13.5-18.0) L D 07/29/23 05:40 Hct 24.7 % (42.0-54.0) L 07/29/23 05:40 MCV 91.5 fL (80.0-100.0) 07/29/23 05:40 MCH 29.5 pg (27.0-34.0) 07/29/23 05:40 MCHC 32.3 g/dL (33.0-35.0) L 07/29/23 05:40 RDW 15.3 % (11.6-16.5) 07/29/23 05:40 Plt Count 459 X10^3/uL (150.0-450.0) H 07/29/23 05:40 MPV 8.9 fL (7.4-11.0) 07/29/23 05:40 Neut % (Auto) 89.4 % (42.0-75.0) H 07/29/23 05:40 Lymph % (Auto) 5.5 % (21.0-51.0) L 07/29/23 05:40 [place] % (Auto) 4.9 % (0.0-13.0) 07/29/23 05:40 Eos % (Auto) 0.0 % (0.9-2.9) L 07/29/23 05:40 Baso % (Auto) 0.2 % (0.2-1.0) 07/29/23 05:40 Neut # (Auto) 16.5 x10^3/uL (2.2-4.8) H 07/29/23 05:40 Lymph # (Auto) 1.0 X10^3/uL (1.3-2.9) L 07/29/23 05:40 [place] # (Auto) 0.9 x10^3/uL (0.3-0.8) H 07/29/23 05:40 Eos # (Auto) 0.0 x10^3/uL (0.0-0.2) 07/29/23 05:40 Baso # (Auto) 0.0 X10^3/uL (0.0-0.1) 07/29/23 05:40 Absolute Nucleated RBC 0.0 /100WBC 07/29/23 05:40 Sample Site Rrad 07/28/23 08:16 ABG pH 7.510 (7.35-7.45) H 07/28/23 08:16 ABG pCO2 26.0 mmHg (35.0-45.0) L 07/28/23 08:16 ABG pO2 59.0 mmHg (80.0-100.0) L 07/28/23 08:16 ABG HCO3 20.7 mmol/L (22-26) L 07/28/23 08:16 ABG O2 Saturation 93.0 % (90-100) 07/28/23 08:16 ABG Base Excess -1.1 mmol/L (-2.0-2.0) 07/28/23 08:16 Cyrus Test Pos 07/28/23 08:16 A-a Gradient 165.0 mmHg 07/28/23 08:16 FiO2 36.0 07/28/23 08:16 Blood Gas Comments Pt kenney well elj cdn 07/28/23 08:16 Sodium 141 mmol/L (136-145) 07/29/23 05:40 Corrected Sodium TNP 07/29/23 05:40 Potassium 4.1 mmol/L (3.5-5.1) 07/29/23 05:40 Chloride 109 mmol/L (98-107) H 07/29/23 05:40 Carbon Dioxide 20.8 mmol/L (21-32) L 07/29/23 05:40 BUN 34 mg/dL (7-18) H 07/29/23 05:40 Creatinine 0.94 mg/dL (0.70-1.30) 07/29/23 05:40 Est GFR (MDRD) Af Amer > 60 (>60) 07/29/23 05:40 Est GFR (MDRD) Non-Af > 60 (>60) 07/29/23 05:40 Glucose 109 mg/dL (65-99) H 07/29/23 05:40 Lactic Acid 0.9 mmol/L (0.4-2.0) 07/28/23 10:34 Calcium 8.6 mg/dL (8.5-10.1) 07/29/23 05:40 Corrected Calcium 10.0 mg/dL (8.5-10.1) 07/29/23 05:40 Magnesium 2.0 mg/dL (2.0-2.9) 07/28/23 15:06 Total Bilirubin 0.30 mg/dL (0.2-1.0) 07/29/23 05:40 AST 26 Units/L (15-37) 07/29/23 05:40 ALT 45 Units/L (12-78) 07/29/23 05:40 Alkaline Phosphatase 70 Units/L (46-116) 07/29/23 05:40 Creatine Kinase 37 Units/L (39-308) L 07/28/23 08:29 Troponin I High Sens 20.2 ng/L (4.0-60.0) 07/28/23 12:30 Total Protein 5.9 g/dL (6.4-8.2) L 07/29/23 05:40 Albumin 2.3 g/dL (3.4-5.0) L 07/29/23 05:40 Globulin 3.6 g/dL (2.5-4.5) 07/29/23 05:40 Albumin/Globulin Ratio 0.6 Ratio (1.1-2.1) L 07/29/23 05:40 Amylase 24 Units/L (25-115) L 07/28/23 08:29 Lipase 37 Units/L (16-77) 07/28/23 08:29 Review of Systems Constitutional: No Symptoms Reported Eyes: No Symptoms Reported ENT: No Symptoms Reported Respiratory: Shortness of Breath Cardiovascular: No Symptoms Reported Gastrointestinal: Abdominal Pain and Constipation Genitourinary: No Symptoms Reported Musculoskeletal: No Symptoms Reported Skin: No Symptoms Reported Neurological: No Symptoms Reported Physical Exam Vital Signs: Vital Signs Temperature 97.1 F Temperature 97.9 F Pulse Rate [Right Brachial] 88 Pulse Rate [Right Brachial] 90 Pulse Rate 93 Respiratory Rate 20 Respiratory Rate 21 Respiratory Rate 19 Respiratory Rate 21 Blood Pressure [Right Arm] 116/71 Blood Pressure [Right Arm] 112/72 O2 Sat by Pulse Oximetry 95 O2 Sat by Pulse Oximetry 96 O2 Sat by Pulse Oximetry 94 Oriented: Normal Eyes: Normal Nose: Normal Throat: Dry Respiratory: Diminished Throughout Cardiovascular: Normal Auscultation: Bowel Sounds: Normal Palpation: Other (PEG tube placed, dressing intact) Tenderness: Diffuse, Periumbilical and Mild Skin: Decreased [place] Musculoskeletal: Normal Psychiatric: Normal Mood Description: Calm Affect: Normal Speech Pattern: Clear and Appropriate Assessment/Plan (1) Acute exacerbation of chronic obstructive pulmonary disease: Status: Acute (2) Dysphagia: Qualifiers: Dysphagia type: unspecified Qualified Code(s): R13.10 - Dysphagia, unspecified Status: Acute (3) Weight loss: Status: Acute (4) At risk for aspiration pneumonia: Status: Acute (5) Hyperlipidemia: Qualifiers: Hyperlipidemia type: mixed hyperlipidemia Qualified Code(s): E78.2 - Mixed hyperlipidemia Status: Acute (6) Hypothyroidism: Qualifiers: Hypothyroidism type: acquired Qualified Code(s): E03.9 - Hypot hyroidism, unspecified Status: Acute (7) Hypertension: Qualifiers: Hypertension type: primary hypertension Qualified Code(s): I10 - Essential (primary) hypertension Status: Acute (8) Interstitial lung disease: Status: Acute (9) Leukemia: Qualifiers: Leukemia Active/Remission status: in remission 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
[2023-07-29] MEDS: PEPCID 20 MG VIAL 20 MG in NS 50 ML IV 50 ML IV SCH (10:01)
[2023-07-29] MEDS: PATIENT'S HOME MEDICATION PO SCH (10:15)
[2023-07-29] MEDS: PATIENT'S HOME MEDICATION (Prasugrel 10 mg tablet) PO SCH (10:16)
[2023-07-29] MEDS: SINGULAIR TAB 10 MG PO SCH (10:16)
[2023-07-29] MEDS: SYNTHROID 25 mcg TAB PO SCH (10:16)
[2023-07-29] MEDS: BOSUTINIB 400 MG PO SCH (10:17)
[2023-07-29] MEDS: WELLBUTRIN XL 300 MG (DAILY) PO SCH (10:17)
[2023-07-29] MEDS: SYNTHROID INJ 100 mcg VIAL IVP NR (10:45)
[2023-07-29] MEDS: DILAUDID INJ IVP PRN (21:29)
[2023-07-30 06:35] LABS: BASOPHILS % (AUTO) 0.1 % (0.2-1.0); HEMATOCRIT 23.5 % (42.0-54.0); HEMOGLOBIN 7.7 g/dL (13.5-18.0); LYMPHOCYTES # (AUTO) 0.9 X10^3/uL (1.3-2.9); LYMPHOCYTES % (AUTO) 3.7 % (21.0-51.0); MEAN CORPUSCULAR HEMOGLOBIN 30.1 pg (27.0-34.0); MEAN CORPUSCULAR VOLUME 91.2 fL (80.0-100.0); MEAN PLATELET VOLUME 8.8 fL (7.4-11.0); MONOCYTES # (AUTO) 1.2 x10^3/uL (0.3-0.8); NEUTROPHILS # (AUTO) 21.3 x10^3/uL (2.2-4.8); NEUTROPHILS % (AUTO) 91.2 % (42.0-75.0); PLATELET COUNT 381 X10^3/uL (150.0-450.0); RED BLOOD COUNT 2.57 X10^6/uL (4.7-6.0); RED CELL DISTRIBUTION WIDTH 15.2 % (11.6-16.5); WHITE BLOOD COUNT 23.3 X10^3/uL (3.6-10.0)
[2023-07-30 06:48] LABS: ALANINE AMINOTRANSFERASE 70 Units/L (12-78); ALBUMIN 2.6 g/dL (3.4-5.0); ALKALINE PHOSPHATASE 65 Units/L (46-116); ASPARTATE AMINO TRANSFERASE 41 Units/L (15-37); BLOOD UREA NITROGEN 21 mg/dL (7-18); CALCIUM 8.3 mg/dL (8.5-10.1); CARBON DIOXIDE 22.6 mmol/L (21-32); CHLORIDE 110 mmol/L (98-107); COR CA(FOR HYPOALB) 9.4 mg/dL (8.5-10.1); COR NA(FOR HYPERGLY) 143 mmol/L (136-145); CREATININE 0.69 mg/dL (0.70-1.30); GLUCOSE 120 mg/dL (65-99); MAGNESIUM 2.4 mg/dL (2.0-2.9); POTASSIUM 4.1 mmol/L (3.5-5.1); SODIUM 143 mmol/L (136-145); TOTAL PROTEIN 5.9 g/dL (6.4-8.2); eGFR NON BLACK RACES > 60 (>60)
[2023-07-30 06:58] LABS: BAND NEUTROPHILS % 6 % (0-10); PLATELET MORPHOLOGY COMMENT NORMAL (NORMAL)
--- NOTE | 2023-07-30 08:55 | DR.PROGNOT ---
HOSPITAL PROGRESS NOTE Progress Note for Day of: Progress Note Date: 07/30/23 Chief Complaint Chief Complaint: Patient's status post placement of PEG tube. Complaining of mild abdominal pain. White count is 23.3, hemoglobin 7.7, BUN 21, creatinine 0.69, albumin 2.6. Patient is afebrile Past Medical Family Social History Past Med/Fam/Surg Hx: No changes since H&P Allergies: Allergies No Known Allergies Allergy (Verified 06/05/23 15:40) Vital Signs Vital Signs: Vital Signs Temperature 97.8 F Pulse Rate [Right Brachial] 88 Respiratory Rate 22 Blood Pressure [Right Arm] 108/70 O2 Sat by Pulse Oximetry 98 Physical Exam Oriented: Normal Eyes: Normal Nose: Normal Throat: Dry Cardiovascular: Normal GI:Auscultation: Normal GI:Palpation: Other (PEG tube placed, dressing intact) GI: Tenderness: Diffuse, Periumbilical and Mild Skin: Decreased [place] Musculoskeletal: Normal Psychiatric: Normal Mood Description: Calm Affect: Normal Speech Pattern: Clear and Appropriate Laboratory and Diagnostics 07/30/23 05:50 07/30/23 05:50 Labs: Laboratory WBC 23.3 X10^3/uL (3.6-10.0) H 07/30/23 05:50 RBC 2.57 X10^6/uL (4.7-6.0) L 07/30/23 05:50 Hgb 7.7 g/dL (13.5-18.0) L 07/30/23 05:50 Hct 23.5 % (42.0-54.0) L 07/30/23 05:50 MCV 91.2 fL (80.0-100.0) 07/30/23 05:50 MCH 30.1 pg (27.0-34.0) 07/30/23 05:50 MCHC 33.0 g/dL (33.0-35.0) 07/30/23 05:50 RDW 15.2 % (11.6-16.5) 07/30/23 05:50 Plt Count 381 X10^3/uL (150.0-450.0) 07/30/23 05:50 Plt Count Comment Adequate (ADEQUATE) 07/30/23 05:50 MPV 8.8 fL (7.4-11.0) 07/30/23 05:50 Neut % (Auto) 91.2 % (42.0-75.0) H 07/30/23 05:50 Lymph % (Auto) 3.7 % (21.0-51.0) L 07/30/23 05:50 [place] % (Auto) 5.0 % (0.0-13.0) 07/30/23 05:50 Eos % (Auto) 0.0 % (0.9-2.9) L 07/30/23 05:50 Baso % (Auto) 0.1 % (0.2-1.0) L 07/30/23 05:50 Neut # (Auto) 21.3 x10^3/uL (2.2-4.8) H 07/30/23 05:50 Lymph # (Auto) 0.9 X10^3/uL (1.3-2.9) L 07/30/23 05:50 [place] # (Auto) 1.2 x10^3/uL (0.3-0.8) H 07/30/23 05:50 Eos # (Auto) 0.0 x10^3/uL (0.0-0.2) 07/30/23 05:50 Baso # (Auto) 0.0 X10^3/uL (0.0-0.1) 07/30/23 05:50 Absolute Nucleated RBC 0.0 /100WBC 07/30/23 05:50 Total Counted 100 07/30/23 05:50 Neutrophils % (Manual) 86 % (39-76) H 07/30/23 05:50 Band Neutrophils % 6 % (0-10) 07/30/23 05:50 Lymphocytes % (Manual) 6 % (13-43) L 07/30/23 05:50 Monocytes % (Manual) 2 % (4-9) L 07/30/23 05:50 Plt Morphology Comment Normal (NORMAL) 07/30/23 05:50 RBC Morphology Normal (NORMAL) 07/30/23 05:50 Sample Site Rrad 07/28/23 08:16 ABG pH 7.510 (7.35-7.45) H 07/28/23 08:16 ABG pCO2 26.0 mmHg (35.0-45.0) L 07/28/23 08:16 ABG pO2 59.0 mmHg (80.0-100.0) L 07/28/23 08:16 ABG HCO3 20.7 mmol/L (22-26) L 07/28/23 08:16 ABG O2 Saturation 93.0 % (90-100) 07/28/23 08:16 ABG Base Excess -1.1 mmol/L (-2.0-2.0) 07/28/23 08:16 Cyrus Test Pos 07/28/23 08:16 A-a Gradient 165.0 mmHg 07/28/23 08:16 FiO2 36.0 07/28/23 08:16 Blood Gas Comments Pt kenney well elj cdn 07/28/23 08:16 Sodium 143 mmol/L (136-145) 07/30/23 05:50 Corrected Sodium 143 mmol/L (136-145) 07/30/23 05:50 Potassium 4.1 mmol/L (3.5-5.1) 07/30/23 05:50 Chloride 110 mmol/L (98-107) H 07/30/23 05:50 Carbon Dioxide 22.6 mmol/L (21-32) 07/30/23 05:50 BUN 21 mg/dL (7-18) H 07/30/23 05:50 Creatinine 0.69 mg/dL (0.70-1.30) L 07/30/23 05:50 Est GFR (MDRD) Af Amer > 60 (>60) 07/30/23 05:50 Est GFR (MDRD) Non-Af > 60 (>60) 07/30/23 05:50 Glucose 120 mg/dL (65-99) H 07/30/23 05:50 Lactic Acid 0.9 mmol/L (0.4-2.0) 07/28/23 10:34 Calcium 8.3 mg/dL (8.5-10.1) L 07/30/23 05:50 Corrected Calcium 9.4 mg/dL (8.5-10.1) 07/30/23 05:50 Magnesium 2.4 mg/dL (2.0-2.9) 07/30/23 05:50 Total Bilirubin 0.30 mg/dL (0.2-1.0) 07/30/23 05:50 AST 41 Units/L (15-37) H 07/30/23 05:50 ALT 70 Units/L (12-78) 07/30/23 05:50 Alkaline Phosphatase 65 Units/L (46-116) 07/30/23 05:50 Creatine Kinase 37 Units/L (39-308) L 07/28/23 08:29 Troponin I High Sens 20.2 ng/L (4.0-60.0) 07/28/23 12:30 Total Protein 5.9 g/dL (6.4-8.2) L 07/30/23 05:50 Albumin 2.6 g/dL (3.4-5.0) L 07/30/23 05:50 Globulin 3.3 g/dL (2.5-4.5) 07/30/23 05:50 Albumin/Globulin Ratio 0.8 Ratio (1.1-2.1) L 07/30/23 05:50 Amylase 24 Units/L (25-115) L 07/28/23 08:29 Lipase 37 Units/L (16-77) 07/28/23 08:29 Assessment and Plan 1: Status post the placement of PEG tube. Patient could have clear liquid diet and will start the tube feeding at 50 cc an hour. 2: Anemia with hemoglobin 7.7. To transfuse as needed. 3: Recent weight loss and malnutrition. For nutritional support. DVT prophylaxis Problem Patient Problems: Patient Problems Acute exacerbation of chronic obstructive pulmonary disease (Acute) J44.1 Abdominal pain (Acute) R10.9 Hypoxemia (Acute) R09.02
[2023-07-30] MEDS: LOVENOX INJ 40 MG SYR SC SCH (09:39)
--- NOTE | 2023-07-30 10:20 | PCM.PROG ---
Progress Note Progress Note for Day of Date of Exam: 07/30/23 Subjective Subjective: Patient seen at bedside, no acute events overnight. He had PEG tube placed yesterday. He states he feels ok, still has SOB with exertion. He is working with PT this morning. Dr Allen saw him and started on clears and to start continuous tube feeds. His hgb was 7.7. Labs/imaging reviewed -WBC 23.3 Hgb 7.7 BUN/Cr: 21/0.69 -AIT pending Plan: follow recommendations as per surgery, start tube feeds. Monitor Hgb, repeat this afternoon. If below 8 then will transfuse. Continue home medi cations. Replace electrolytes as per protocol. PT/OT as tolerated. Wean O2 as tolerated. Continue Zosyn, solumedrol and bronchodilators. Monitor AM labs/imaging. Past Medical Family Social History Past Med/Fam/Surg Hx: No changes since H&P Allergies: Allergies No Known Allergies Allergy (Verified 06/05/23 15:40) Vital Signs and I&O's Vital Signs: Vital Signs Temperature 97.8 F Pulse Rate [Right Brachial] 88 Respiratory Rate 22 Blood Pressure [Right Arm] 108/70 O2 Sat by Pulse Oximetry 98 Intake and Output: Intake & Output 07/27/23 07/28/23 07/29/23 07/30/23 23:59 23:59 23:59 23:59 Intake Total 643 / 643 1711 / 1711 246 / 246 Output Total 875 / 875 1025 / 1025 Balance -232 / -232 686 / 686 246 / 246 Physical Exam Oriented: Normal Eyes: Normal Nose: Normal Throat: Dry Respiratory: Generalized and Diminished Cardiovascular: Normal Auscultation: Bowel Sounds: Normal Tenderness: Periumbilical and Mild (PEG tube noted ) Skin: Decreased [place] Musculoskeletal: Normal Psychiatric: Normal Mood Description: Calm Affect: Normal Speech Pattern: Clear and Appropriate Laboratory and Diagnostics 07/30/23 05:50 07/30/23 05:50 Labs: Laboratory WBC 23.3 X10^3/uL (3.6-10.0) H 07/30/23 05:50 RBC 2.57 X10^6/uL (4.7-6.0) L 07/30/23 05:50 Hgb 7.7 g/dL (13.5-18.0) L 07/30/23 05:50 Hct 23.5 % (42.0-54.0) L 07/30/23 05:50 MCV 91.2 fL (80.0-100.0) 07/30/23 05:50 MCH 30.1 pg (27.0-34.0) 07/30/23 05:50 MCHC 33.0 g/dL (33.0-35.0) 07/30/23 05:50 RDW 15.2 % (11.6-16.5) 07/30/23 05:50 Plt Count 381 X10^3/uL (150.0-450.0) 07/30/23 05:50 Plt Count Comment Adequate (ADEQUATE) 07/30/23 05:50 MPV 8.8 fL (7.4-11.0) 07/30/23 05:50 Neut % (Auto) 91.2 % (42.0-75.0) H 07/30/23 05:50 Lymph % (Auto) 3.7 % (21.0-51.0) L 07/30/23 05:50 [place] % (Auto) 5.0 % (0.0-13.0) 07/30/23 05:50 Eos % (Auto) 0.0 % (0.9-2.9) L 07/30/23 05:50 Baso % (Auto) 0.1 % (0.2-1.0) L 07/30/23 05:50 Neut # (Auto) 21.3 x10^3/uL (2.2-4.8) H 07/30/23 05:50 Lymph # (Auto) 0.9 X10^3/uL (1.3-2.9) L 07/30/23 05:50 [place] # (Auto) 1.2 x10^3/uL (0.3-0.8) H 07/30/23 05:50 Eos # (Auto) 0.0 x10^3/uL (0.0-0.2) 07/30/23 05:50 Baso # (Auto) 0.0 X10^3/uL (0.0-0.1) 07/30/23 05:50 Absolute Nucleated RBC 0.0 /100WBC 07/30/23 05:50 Total Counted 100 07/30/23 05:50 Neutrophils % (Manual) 86 % (39-76) H 07/30/23 05:50 Band Neutrophils % 6 % (0-10) 07/30/23 05:50 Lymphocytes % (Manual) 6 % (13-43) L 07/30/23 05:50 Monocytes % (Manual) 2 % (4-9) L 07/30/23 05:50 Plt Morphology Comment Normal (NORMAL) 07/30/23 05:50 RBC Morphology Normal (NORMAL) 07/30/23 05:50 Sample Site Rrad 07/28/23 08:16 ABG pH 7.510 (7.35-7.45) H 07/28/23 08:16 ABG pCO2 26.0 mmHg (35.0-45.0) L 07/28/23 08:16 ABG pO2 59.0 mmHg (80.0-100.0) L 07/28/23 08:16 ABG HCO3 20.7 mmol/L (22-26) L 07/28/23 08:16 ABG O2 Saturation 93.0 % (90-100) 07/28/23 08:16 ABG Base Excess -1.1 mmol/L (-2.0-2.0) 07/28/23 08:16 Cyrus Test Pos 07/28/23 08:16 A-a Gradient 165.0 mmHg 07/28/23 08:16 FiO2 36.0 07/28/23 08:16 Blood Gas Comments Pt kenney well elj cdn 07/28/23 08:16 Sodium 143 mmol/L (136-145) 07/30/23 05:50 Corrected Sodium 143 mmol/L (136-145) 07/30/23 05:50 Potassium 4.1 mmol/L (3.5-5.1) 07/30/23 05:50 Chloride 110 mmol/L (98-107) H 07/30/23 05:50 Carbon Dioxide 22.6 mmol/L (21-32) 07/30/23 05:50 BUN 21 mg/dL (7-18) H 07/30/23 05:50 Creatinine 0.69 mg/dL (0.70-1.30) L 07/30/23 05:50 Est GFR (MDRD) Af Amer > 60 (>60) 07/30/23 05:50 Est GFR (MDRD) Non-Af > 60 (>60) 07/30/23 05:50 Glucose 120 mg/dL (65-99) H 07/30/23 05:50 Lactic Acid 0.9 mmol/L (0.4-2.0) 07/28/23 10:34 Calcium 8.3 mg/dL (8.5-10.1) L 07/30/23 05:50 Corrected Calcium 9.4 mg/dL (8.5-10.1) 07/30/23 05:50 Magnesium 2.4 mg/dL (2.0-2.9) 07/30/23 05:50 Total Bilirubin 0.30 mg/dL (0.2-1.0) 07/30/23 05:50 AST 41 Units/L (15-37) H 07/30/23 05:50 ALT 70 Units/L (12-78) 07/30/23 05:50 Alkaline Phosphatase 65 Units/L (46-116) 07/30/23 05:50 Creatine Kinase 37 Units/L (39-308) L 07/28/23 08:29 Troponin I High Sens 20.2 ng/L (4.0-60.0) 07/28/23 12:30 Total Protein 5.9 g/dL (6.4-8.2) L 07/30/23 05:50 Albumin 2.6 g/dL (3.4-5.0) L 07/30/23 05:50 Globulin 3.3 g/dL (2.5-4.5) 07/30/23 05:50 Albumin/Globulin Ratio 0.8 Ratio (1.1-2.1) L 07/30/23 05:50 Amylase 24 Units/L (25-115) L 07/28/23 08:29 Lipase 37 Units/L (16-77) 07/28/23 08:29 Plan (1) Acute exacerbation of chronic obstructive pulmonary disease: Status: Acute (2) Dysphagia: Status: Acute Qualifiers: Dysphagia type: unspecified Qualified Code(s): R13.10 - Dysphagia, unsp ecified (3) Weight loss: Status: Acute (4) At risk for aspiration pneumonia: Status: Acute (5) Hyperlipidemia: Status: Acute Qualifiers: Hyperlipidemia type: mixed hyperlipidemia Qualified Code(s): E78.2 - Mixed hyperlipidemia (6) Hypothyroidism: Status: Acute Qualifiers: Hypothyroidism type: acquired Qualified Code(s): E03.9 - Hypothyroidism, unspecified (7) Hypertension: Status: Acute Qualifiers: Hypertension type: primary hypertension Qualified Code(s): I10 - Essential (primary) hypertension (8) Interstitial lung disease: Status: Acute (9) Leukemia: Status: Acute Qualifiers: Leukemia Active/Remission status: in remission 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
[2023-07-30 12:22] VITALS: BMI 18.5
[2023-07-30 12:28] LABS: HEMATOCRIT 23.3 % (42.0-54.0); HEMOGLOBIN 7.7 g/dL (13.5-18.0)
[2023-07-30] MEDS ORDERED: NS 500 ML IV 500 ML IV ONE (22:11)
[2023-07-30] MEDS: NS 250 ML IV 250 ML IV ONE (23:54)
[2023-07-31 09:29] LABS: BASOPHILS # (AUTO) 0.1 X10^3/uL (0.0-0.1); BASOPHILS % (AUTO) 0.3 % (0.2-1.0); HEMATOCRIT 27.9 % (42.0-54.0); HEMOGLOBIN 9.2 g/dL (13.5-18.0); LYMPHOCYTES # (AUTO) 0.6 X10^3/uL (1.3-2.9); LYMPHOCYTES % (AUTO) 3.2 % (21.0-51.0); MEAN CORPUSCULAR HEMOGLOBIN 30.1 pg (27.0-34.0); MEAN CORPUSCULAR HGB CONC 33.1 g/dL (33.0-35.0); MEAN CORPUSCULAR VOLUME 90.9 fL (80.0-100.0); MEAN PLATELET VOLUME 8.3 fL (7.4-11.0); MONOCYTES # (AUTO) 0.9 x10^3/uL (0.3-0.8); MONOCYTES % (AUTO) 4.6 % (0.0-13.0); NEUTROPHILS # (AUTO) 17.4 x10^3/uL (2.2-4.8); NEUTROPHILS % (AUTO) 91.9 % (42.0-75.0); PLATELET COUNT 309 X10^3/uL (150.0-450.0); RED BLOOD COUNT 3.07 X10^6/uL (4.7-6.0); RED CELL DISTRIBUTION WIDTH 14.9 % (11.6-16.5)
[2023-07-31 09:50] LABS: ALANINE AMINOTRANSFERASE 125 Units/L (12-78); ALBUMIN 2.5 g/dL (3.4-5.0); ALKALINE PHOSPHATASE 59 Units/L (46-116); ASPARTATE AMINO TRANSFERASE 59 Units/L (15-37); BLOOD UREA NITROGEN 18 mg/dL (7-18); CALCIUM 7.9 mg/dL (8.5-10.1); CARBON DIOXIDE 24.5 mmol/L (21-32); CHLORIDE 110 mmol/L (98-107); COR CA(FOR HYPOALB) 9.1 mg/dL (8.5-10.1); CREATININE 0.74 mg/dL (0.70-1.30); GLUCOSE 104 mg/dL (65-99); MAGNESIUM 2.3 mg/dL (2.0-2.9); POTASSIUM 4.3 mmol/L (3.5-5.1); SODIUM 141 mmol/L (136-145); TOTAL PROTEIN 5.3 g/dL (6.4-8.2); eGFR NON BLACK RACES > 60 (>60)
[2023-07-31 10:07] LABS: BAND NEUTROPHILS % 2 % (0-10); PLATELET MORPHOLOGY COMMENT NORMAL (NORMAL)
--- NOTE | 2023-07-31 10:07 | PCM.PROG ---
Progress Note Progress Note for Day of Date of Exam: 07/31/23 Subjective Subjective: Patient seen at bedside, no acute events overnight. He was started on tube feeds yesterday but had some abdominal discomfort. Feeds are held for now as per Dr Allen. His repeat hgb was 7.7, he received 2 units of PRBCs overnight. He states his breathing is better. He has not been eating much. He prefers to have Boost or Ensure. Labs/imaging reviewed -WBC 19.0 Hgb 9.2 BUN/Cr: 18/0.74 AST/ALT 59/125 -AIT pending -blood cx (-) Plan: follow recommendations as per surgery regarding tube feeds. Will add Ensure prn. Continue home medications, patient takes them with apple sauce. Re place electrolytes as per protocol. PT/OT as tolerated. Wean O2 as tolerated. Continue Zosyn, solumedrol and bronchodilators. Monitor AM labs/imaging. Past Medical Family Social History Past Med/Fam/Surg Hx: No changes since H&P Allergies: Allergies No Known Allergies Allergy (Verified 06/05/23 15:40) Vital Signs and I&O's Vital Signs: Vital Signs Temperature 98.1 F Temperature 98.3 F Pulse Rate [Right Brachial] 64 Pulse Rate [Right Brachial] 77 Respiratory Rate 24 Respiratory Rate 20 Respiratory Rate 20 Blood Pressure [Right Arm] 115/66 Blood Pressure [Right Arm] 99/51 O2 Sat by Pulse Oximetry 100 O2 Sat by Pulse Oximetry 97 Intake and Output: Intake & Output 07/28/23 07/29/23 07/30/23 07/31/23 23:59 23:59 23:59 23:59 Intake Total 643 / 643 1711 / 1711 1631 / 1631 400 / 400 Output Total 875 / 875 1025 / 1025 800 / 800 800 / 800 Balance -232 / -232 686 / 686 831 / 831 -400 / -400 Physical Exam Oriented: Normal Eyes: Normal Nose: Normal Throat: Dry Respiratory: Generalized and Diminished Cardiovascular: Normal Auscultation: Bowel Sounds: Normal Palpation: Normal Tenderness: Periumbilical and Mild (PEG tube noted ) Skin: Decreased Turgur Musculoskeletal: Normal Psychiatric: Normal Mood Description: Calm Affect: Normal Speech Pattern: Clear and Appropriate Laboratory and Diagnostics 07/31/23 09:19 07/31/23 09:19 Labs: 07/28/23 08:29 Blood Blood Culture - Preliminary 07/28/23 08:29 Blood Blood Culture - Preliminary Laboratory WBC 19.0 X10^3/uL (3.6-10.0) H 07/31/23 09:19 RBC 3.07 X10^6/uL (4.7-6.0) L 07/31/23 09:19 Hgb 9.2 g/dL (13.5-18.0) L 07/31/23 09:19 Hct 27.9 % (42.0-54.0) L 07/31/23 09:19 MCV 90.9 fL (80.0-100.0) 07/31/23 09:19 MCH 30.1 pg (27.0-34.0) 07/31/23 09:19 MCHC 33.1 g/dL (33.0-35.0) 07/31/23 09:19 RDW 14.9 % (11.6-16.5) 07/31/23 09:19 Plt Count 309 X10^3/uL (150.0-450.0) 07/31/23 09:19 Plt Count Comment Adequate (ADEQUATE) 07/30/23 05:50 MPV 8.3 fL (7.4-11.0) 07/31/23 09:19 Neut % (Auto) 91.9 % (42.0-75.0) H 07/31/23 09:19 Lymph % (Auto) 3.2 % (21.0-51.0) L 07/31/23 09:19 [place] % (Auto) 4.6 % (0.0-13.0) 07/31/23 09:19 Eos % (Auto) 0.0 % (0.9-2.9) L 07/31/23 09:19 Baso % (Auto) 0.3 % (0.2-1.0) 07/31/23 09:19 Neut # (Auto) 17.4 x10^3/uL (2.2-4.8) H 07/31/23 09:19 Lymph # (Auto) 0.6 X10^3/uL (1.3-2.9) L 07/31/23 09:19 [place] # (Auto) 0.9 x10^3/uL (0.3-0.8) H 07/31/23 09:19 Eos # (Auto) 0.0 x10^3/uL (0.0-0.2) 07/31/23 09:19 Baso # (Auto) 0.1 X10^3/uL (0.0-0.1) 07/31/23 09:19 Absolute Nucleated RBC 0.4 /100WBC 07/31/23 09:19 Total Counted 100 07/30/23 05:50 Neutrophils % (Manual) 86 % (39-76) H 07/30/23 05:50 Band Neutrophils % 6 % (0-10) 07/30/23 05:50 Lymphocytes % (Manual) 6 % (13-43) L 07/30/23 05:50 Monocytes % (Manual) 2 % (4-9) L 07/30/23 05:50 Plt Morphology Comment Normal (NORMAL) 07/30/23 05:50 RBC Morphology Normal (NORMAL) 07/30/23 05:50 Sample Site Rrad 07/28/23 08:16 ABG pH 7.510 (7.35-7.45) H 07/28/23 08:16 ABG pCO2 26.0 mmHg (35.0-45.0) L 07/28/23 08:16 ABG pO2 59.0 mmHg (80.0-100.0) L 07/28/23 08:16 ABG HCO3 20.7 mmol/L (22-26) L 07/28/23 08:16 ABG O2 Saturation 93.0 % (90-100) 07/28/23 08:16 ABG Base Excess -1.1 mmol/L (-2.0-2.0) 07/28/23 08:16 Cyrus Test Pos 07/28/23 08:16 A-a Gradient 165.0 mmHg 07/28/23 08:16 FiO2 36.0 07/28/23 08:16 Blood Gas Comments Pt kenney well elj cdn 07/28/23 08:16 Sodium 141 mmol/L (136-145) 07/31/23 09:19 Corrected Sodium TNP 07/31/23 09:19 Potassium 4.3 mmol/L (3.5-5.1) 07/31/23 09:19 Chloride 110 mmol/L (98-107) H 07/31/23 09:19 Carbon Dioxide 24.5 mmol/L (21-32) 07/31/23 09:19 BUN 18 mg/dL (7-18) 07/31/23 09:19 Creatinine 0.74 mg/dL (0.70-1.30) 07/31/23 09:19 Est GFR (MDRD) Af Amer > 60 (>60) 07/31/23 09:19 Est GFR (MDRD) Non-Af > 60 (>60) 07/31/23 09:19 Glucose 104 mg/dL (65-99) H 07/31/23 09:19 Lactic Acid 0.9 mmol/L (0.4-2.0) 07/28/23 10:34 Calcium 7.9 mg/dL (8.5-10.1) L 07/31/23 09:19 Corrected Calcium 9.1 mg/dL (8.5-10.1) 07/31/23 09:19 Magnesium 2.3 mg/dL (2.0-2.9) 07/31/23 09:19 Total Bilirubin 1.20 mg/dL (0.2-1.0) H 07/31/23 09:19 AST 59 Units/L (15-37) H 07/31/23 09:19 ALT 125 Units/L (12-78) H 07/31/23 09:19 Alkaline Phosphatase 59 Units/L (46-116) 07/31/23 09:19 Creatine Kinase 37 Units/L (39-308) L 07/28/23 08:29 Troponin I High Sens 20.2 ng/L (4.0-60.0) 07/28/23 12:30 Total Protein 5.3 g/dL (6.4-8.2) L 07/31/23 09:19 Albumin 2.5 g/dL (3.4-5.0) L 07/31/23 09:19 Globulin 2.8 g/dL (2.5-4.5) 07/31/23 09:19 Albumin/Globulin Ratio 0.9 Ratio (1.1-2.1) L 07/31/23 09:19 Amylase 24 Units/L (25-115) L 07/28/23 08:29 Lipase 37 Units/L (16-77) 07/28/23 08:29 Resp Viral Panel (PCR) See scanned report 07/28/23 13:15 Blood Type A POSITIVE 07/30/23 22:30 Antibody Screen Negative 07/30/23 22:30 Crossmatch See Detail 07/30/23 22:30 Plan (1) Anemia: Status: Acute Qualifiers: Anemia type: unspecified type Qualified Code(s): D64.9 - Anemia, unspecified (2) Acute exacerbation of chronic obstructive pulmonary disease: Status: Acute (3) Dysphagia: Status: Acute Qualifiers: Dysphagia type: unspecified Qualified Code(s): R13.10 - Dysphagia, unspecified (4) Weight loss: Status: Acute (5) At risk for aspiration pneumonia: Status: Acute (6) Hyperlipidemia: Status: Acute Qualifiers: Hyperlipidemia type: mixed hyperlipidemia Qualified Code(s): E78.2 - Mixed hyperlipidemia (7) Hypothyroidism: Status: Acute Qualifiers: Hypothyroidism type: acquired Qualified Code(s): E03.9 - Hypothyro idism, unspecified (8) Hypertension: Status: Acute Qualifiers: Hypertension type: primary hypertension Qualified Code(s): I10 - Essential (primary) hypertension (9) Interstitial lung disease: Status: Acute (10) Leukemia: Status: Acute Qualifiers: Leukemia Active/Remission status: in remission 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
[2023-07-31] MEDS ORDERED: REGLAN INJ 10 MG VIAL IVP PRN (12:04)
--- NOTE | 2023-07-31 12:04 | DR.PROGNOT ---
HOSPITAL PROGRESS NOTE Progress Note for Day of: Progress Note Date: 07/31/23 Chief Complaint Chief Complaint: Patient's status post placement of PEG tube. Could not tolerate tube feeding yesterday with large residual feeling in the stomach. During endoscopy he was found to have some element of gastroparesis, although according to the patient he had motility study which was normal. No record is available. Today the patient is feeling somewhat better, no abdominal pain, no bowel movement yet. WBC is 19,000, hemoglobin 9.2. AST and ALT are slightly elevated 59 and 125. Stable vital signs and afebrile. Abdomen is full and slightly tympanic but soft with good bowel sounds. Will try the tube feeding again today.. Past Medical Family Social History Past Med/Fam/Surg Hx: No changes since H&P Allergies: Allergies No Known Allergies Allergy (Verified 06/05/23 15:40) Vital Signs Vital Signs: Vital Signs Temperature 98.1 F Temperature 98.3 F Pulse Rate [Right Brachial] 64 Pulse Rate [Right Brachial] 77 Respiratory Rate 24 Respiratory Rate 20 Respiratory Rate 20 Blood Pressure [Right Arm] 115/66 Blood Pressure [Right Arm] 99/51 O2 Sat by Pulse Oximetry 100 O2 Sat by Pulse Oximetry 97 Physical Exam Oriented: Normal Eyes: Normal Nose: Normal Throat: Dry Respiratory: Generalized and Diminished Cardiovascular: Normal GI:Auscultation: Normal GI:Palpation: Normal GI: Tenderness: Periumbilical and Mild Skin: Decreased Turgur Musculoskeletal: Normal Psychiatric: Normal Mood Description: Calm Affect: Normal Speech Pattern: Clear and Appropriate Laboratory and Diagnostics 07/31/23 09:19 07/31/23 09:19 Labs: 07/28/23 08:29 Blood Blood Culture - Preliminary 07/28/23 08:29 Blood Blood Culture - Preliminary Laboratory WBC 19.0 X10^3/uL (3.6-10.0) H 07/31/23 09:19 RBC 3.07 X10^6/uL (4.7-6.0) L 07/31/23 09:19 Hgb 9.2 g/dL (13.5-18.0) L 07/31/23 09:19 Hct 27.9 % (42.0-54.0) L 07/31/23 09:19 MCV 90.9 fL (80.0-100.0) 07/31/23 09:19 MCH 30.1 pg (27.0-34.0) 07/31/23 09:19 MCHC 33.1 g/dL (33.0-35.0) 07/31/23 09:19 RDW 14.9 % (11.6-16.5) 07/31/23 09:19 Plt Count 309 X10^3/uL (150.0-450.0) 07/31/23 09:19 Plt Count Comment Adequate (ADEQUATE) 07/31/23 09:19 MPV 8.3 fL (7.4-11.0) 07/31/23 09:19 Neut % (Auto) 91.9 % (42.0-75.0) H 07/31/23 09:19 Lymph % (Auto) 3.2 % (21.0-51.0) L 07/31/23 09:19 [place] % (Auto) 4.6 % (0.0-13.0) 07/31/23 09:19 Eos % (Auto) 0.0 % (0.9-2.9) L 07/31/23 09:19 Baso % (Auto) 0.3 % (0.2-1.0) 07/31/23 09:19 Neut # (Auto) 17.4 x10^3/uL (2.2-4.8) H 07/31/23 09:19 Lymph # (Auto) 0.6 X10^3/uL (1.3-2.9) L 07/31/23 09:19 [place] # (Auto) 0.9 x10^3/uL (0.3-0.8) H 07/31/23 09:19 Eos # (Auto) 0.0 x10^3/uL (0.0-0.2) 07/31/23 09:19 Baso # (Auto) 0.1 X10^3/uL (0.0-0.1) 07/31/23 09:19 Absolute Nucleated RBC 0.4 /100WBC 07/31/23 09:19 Total Counted 100 07/31/23 09:19 Neutrophils % (Manual) 91 % (39-76) H 07/31/23 09:19 Band Neutrophils % 2 % (0-10) 07/31/23 09:19 Lymphocytes % (Manual) 4 % (13-43) L 07/31/23 09:19 Monocytes % (Manual) 3 % (4-9) L 07/31/23 09:19 Plt Morphology Comment Normal (NORMAL) 07/31/23 09:19 RBC Morphology Normal (NORMAL) 07/31/23 09:19 Sample Site Rrad 07/28/23 08:16 ABG pH 7.510 (7.35-7.45) H 07/28/23 08:16 ABG pCO2 26.0 mmHg (35.0-45.0) L 07/28/23 08:16 ABG pO2 59.0 mmHg (80.0-100.0) L 07/28/23 08:16 ABG HCO3 20.7 mmol/L (22-26) L 07/28/23 08:16 ABG O2 Saturation 93.0 % (90-100) 07/28/23 08:16 ABG Base Excess -1.1 mmol/L (-2.0-2.0) 07/28/23 08:16 Cyrus Test Pos 07/28/23 08:16 A-a Gradient 165.0 mmHg 07/28/23 08:16 FiO2 36.0 07/28/23 08:16 Blood Gas Comments Pt kenney well elj cdn 07/28/23 08:16 Sodium 141 mmol/L (136-145) 07/31/23 09:19 Corrected Sodium TNP 07/31/23 09:19 Potassium 4.3 mmol/L (3.5-5.1) 07/31/23 09:19 Chloride 110 mmol/L (98-107) H 07/31/23 09:19 Carbon Dioxide 24.5 mmol/L (21-32) 07/31/23 09:19 BUN 18 mg/dL (7-18) 07/31/23 09:19 Creatinine 0.74 mg/dL (0.70-1.30) 07/31/23 09:19 Est GFR (MDRD) Af Amer > 60 (>60) 07/31/23 09:19 Est GFR (MDRD) Non-Af > 60 (>60) 07/31/23 09:19 Glucose 104 mg/dL (65-99) H 07/31/23 09:19 Lactic Acid 0.9 mmol/L (0.4-2.0) 07/28/23 10:34 Calcium 7.9 mg/dL (8.5-10.1) L 07/31/23 09:19 Corrected Calcium 9.1 mg/dL (8.5-10.1) 07/31/23 09:19 Magnesium 2.3 mg/dL (2.0-2.9) 07/31/23 09:19 Total Bilirubin 1.20 mg/dL (0.2-1.0) H 07/31/23 09:19 AST 59 Units/L (15-37) H 07/31/23 09:19 ALT 125 Units/L (12-78) H 07/31/23 09:19 Alkaline Phosphatase 59 Units/L (46-116) 07/31/23 09:19 Creatine Kinase 37 Units/L (39-308) L 07/28/23 08:29 Troponin I High Sens 20.2 ng/L (4.0-60.0) 07/28/23 12:30 Total Protein 5.3 g/dL (6.4-8.2) L 07/31/23 09:19 Albumin 2.5 g/dL (3.4-5.0) L 07/31/23 09:19 Globulin 2.8 g/dL (2.5-4.5) 07/31/23 09:19 Albumin/Globulin Ratio 0.9 Ratio (1.1-2.1) L 07/31/23 09:19 Amylase 24 Units/L (25-115) L 07/28/23 08:29 Lipase 37 Units/L (16-77) 07/28/23 08:29 Resp Viral Panel (PCR) See scanned report 07/28/23 13:15 Blood Type A POSITIVE 07/30/23 22:30 Antibody Screen Negative 07/30/23 22:30 Crossmatch See Detail 07/30/23 22:30 Assessment and Plan 1: Status post the placement of PEG tube. Gastroparesis. Will try feeding again today. 2: Anemia with hemoglobin 7.7. To transfuse as needed. 3: Recent weight loss and malnutrition. For nutritional support. DVT prophylaxis Problem Patient Problems: Patient Problems (Updated 07/31/23 @ 10:06 by Kayy Perera) Acute exacerbation of chronic obstructive pulmonary disease (Acute) J44.1 Abdominal pain (Acute) R10.9 Hypoxemia (Acute) R09.02
[2023-07-31] MEDS ORDERED: NS 100 ML IV 100 ML ONE (20:57)
[2023-08-01 06:43] LABS: BASOPHILS % (AUTO) 0.1 % (0.2-1.0); HEMATOCRIT 28.9 % (42.0-54.0); HEMOGLOBIN 9.5 g/dL (13.5-18.0); LYMPHOCYTES # (AUTO) 0.8 X10^3/uL (1.3-2.9); LYMPHOCYTES % (AUTO) 4.6 % (21.0-51.0); MEAN CORPUSCULAR VOLUME 90.7 fL (80.0-100.0); MEAN PLATELET VOLUME 8.9 fL (7.4-11.0); MONOCYTES # (AUTO) 1.3 x10^3/uL (0.3-0.8); MONOCYTES % (AUTO) 7.5 % (0.0-13.0); NEUTROPHILS # (AUTO) 15.4 x10^3/uL (2.2-4.8); NEUTROPHILS % (AUTO) 87.8 % (42.0-75.0); PLATELET COUNT 305 X10^3/uL (150.0-450.0); RED BLOOD COUNT 3.18 X10^6/uL (4.7-6.0); RED CELL DISTRIBUTION WIDTH 15.6 % (11.6-16.5); WHITE BLOOD COUNT 17.6 X10^3/uL (3.6-10.0)
[2023-08-01 06:56] LABS: ALANINE AMINOTRANSFERASE 141 Units/L (12-78); ALBUMIN 2.3 g/dL (3.4-5.0); ALKALINE PHOSPHATASE 56 Units/L (46-116); ASPARTATE AMINO TRANSFERASE 57 Units/L (15-37); BLOOD UREA NITROGEN 20 mg/dL (7-18); CARBON DIOXIDE 23.6 mmol/L (21-32); CHLORIDE 112 mmol/L (98-107); COR CA(FOR HYPOALB) 9.4 mg/dL (8.5-10.1); COR NA(FOR HYPERGLY) 142 mmol/L (136-145); CREATININE 0.62 mg/dL (0.70-1.30); GLUCOSE 111 mg/dL (65-99); POTASSIUM 3.8 mmol/L (3.5-5.1); SODIUM 142 mmol/L (136-145); TOTAL PROTEIN 5.3 g/dL (6.4-8.2); eGFR NON BLACK RACES > 60 (>60)
[2023-08-01] MEDS ORDERED: CONSULT PHARMACY - POTASSIUM & MAGNESIUM XX SCH (09:00)
--- NOTE | 2023-08-01 09:13 | DR.PROGNOT ---
HOSPITAL PROGRESS NOTE Progress Note for Day of: Progress Note Date: 08/01/23 Chief Complaint Chief Complaint: Patient's status post placement of PEG tube. Tolerating oral intake without nausea or vomiting. Still complaining of mild to moderate abdominal pain.. Afebrile. Past Medical Family Social History Past Med/Fam/Surg Hx: No changes since H&P Allergies: Allergies No Known Allergies Allergy (Verified 06/05/23 15:40) Vital Signs Vital Signs: Vital Signs Temperature 97.7 F Pulse Rate [Right Brachial] 67 Respiratory Rate 20 Respiratory Rate 20 Respiratory Rate 22 Blood Pressure [Right Arm] 110/71 O2 Sat by Pulse Oximetry 95 Physical Exam Oriented: Normal Eyes: Normal Nose: Normal Throat: Dry Respiratory: Generalized and Diminished Cardiovascular: Normal GI:Auscultation: Normal GI:Palpation: Normal GI: Tenderness: Periumbilical and Mild (No leakage around the PEG tube.) Skin: Decreased Turgur Musculoskeletal: Normal Psychiatric: Normal Mood Description: Calm Affect: Normal Speech Pattern: Clear and Appropriate Laboratory and Diagnostics 08/01/23 05:50 08/01/23 05:50 Labs: 07/28/23 08:29 Blood Blood Culture - Preliminary 07/28/23 08:29 Blood Blood Culture - Preliminary Laboratory WBC 17.6 X10^3/uL (3.6-10.0) H 08/01/23 05:50 RBC 3.18 X10^6/uL (4.7-6.0) L 08/01/23 05:50 Hgb 9.5 g/dL (13.5-18.0) L 08/01/23 05:50 Hct 28.9 % (42.0-54.0) L 08/01/23 05:50 MCV 90.7 fL (80.0-100.0) 08/01/23 05:50 MCH 30.0 pg (27.0-34.0) 08/01/23 05:50 MCHC 33.0 g/dL (33.0-35.0) 08/01/23 05:50 RDW 15.6 % (11.6-16.5) 08/01/23 05:50 Plt Count 305 X10^3/uL (150.0-450.0) 08/01/23 05:50 Plt Count Comment Adequate (ADEQUATE) 07/31/23 09:19 MPV 8.9 fL (7.4-11.0) 08/01/23 05:50 Neut % (Auto) 87.8 % (42.0-75.0) H 08/01/23 05:50 Lymph % (Auto) 4.6 % (21.0-51.0) L 08/01/23 05:50 [place] % (Auto) 7.5 % (0.0-13.0) 08/01/23 05:50 Eos % (Auto) 0.0 % (0.9-2.9) L 08/01/23 05:50 Baso % (Auto) 0.1 % (0.2-1.0) L 08/01/23 05:50 Neut # (Auto) 15.4 x10^3/uL (2.2-4.8) H 08/01/23 05:50 Lymph # (Auto) 0.8 X10^3/uL (1.3-2.9) L 08/01/23 05:50 [place] # (Auto) 1.3 x10^3/uL (0.3-0.8) H 08/01/23 05:50 Eos # (Auto) 0.0 x10^3/uL (0.0-0.2) 08/01/23 05:50 Baso # (Auto) 0.0 X10^3/uL (0.0-0.1) 08/01/23 05:50 Absolute Nucleated RBC 0.3 /100WBC 08/01/23 05:50 Total Counted 100 07/31/23 09:19 Neutrophils % (Manual) 91 % (39-76) H 07/31/23 09:19 Band Neutrophils % 2 % (0-10) 07/31/23 09:19 Lymphocytes % (Manual) 4 % (13-43) L 07/31/23 09:19 Monocytes % (Manual) 3 % (4-9) L 07/31/23 09:19 Plt Morphology Comment Normal (NORMAL) 07/31/23 09:19 RBC Morphology Normal (NORMAL) 07/31/23 09:19 Sample Site Rrad 07/28/23 08:16 ABG pH 7.510 (7.35-7.45) H 07/28/23 08:16 ABG pCO2 26.0 mmHg (35.0-45.0) L 07/28/23 08:16 ABG pO2 59.0 mmHg (80.0-100.0) L 07/28/23 08:16 ABG HCO3 20.7 mmol/L (22-26) L 07/28/23 08:16 ABG O2 Saturation 93.0 % (90-100) 07/28/23 08:16 ABG Base Excess -1.1 mmol/L (-2.0-2.0) 07/28/23 08:16 Cyrus Test Pos 07/28/23 08:16 A-a Gradient 165.0 mmHg 07/28/23 08:16 FiO2 36.0 07/28/23 08:16 Blood Gas Comments Pt kenney well elj cdn 07/28/23 08:16 Sodium 142 mmol/L (136-145) 08/01/23 05:50 Corrected Sodium 142 mmol/L (136-145) 08/01/23 05:50 Potassium 3.8 mmol/L (3.5-5.1) 08/01/23 05:50 Chloride 112 mmol/L (98-107) H 08/01/23 05:50 Carbon Dioxide 23.6 mmol/L (21-32) 08/01/23 05:50 BUN 20 mg/dL (7-18) H 08/01/23 05:50 Creatinine 0.62 mg/dL (0.70-1.30) L 08/01/23 05:50 Est GFR (MDRD) Af Amer > 60 (>60) 08/01/23 05:50 Est GFR (MDRD) Non-Af > 60 (>60) 08/01/23 05:50 Glucose 111 mg/dL (65-99) H 08/01/23 05:50 Lactic Acid 0.9 mmol/L (0.4-2.0) 07/28/23 10:34 Calcium 8.0 mg/dL (8.5-10.1) L 08/01/23 05:50 Corrected Calcium 9.4 mg/dL (8.5-10.1) 08/01/23 05:50 Magnesium 2.2 mg/dL (2.0-2.9) 08/01/23 05:50 Total Bilirubin 0.70 mg/dL (0.2-1.0) 08/01/23 05:50 AST 57 Units/L (15-37) H 08/01/23 05:50 ALT 141 Units/L (12-78) H 08/01/23 05:50 Alkaline Phosphatase 56 Units/L (46-116) 08/01/23 05:50 Creatine Kinase 37 Units/L (39-308) L 07/28/23 08:29 Troponin I High Sens 20.2 ng/L (4.0-60.0) 07/28/23 12:30 Total Protein 5.3 g/dL (6.4-8.2) L 08/01/23 05:50 Albumin 2.3 g/dL (3.4-5.0) L 08/01/23 05:50 Globulin 3.0 g/dL (2.5-4.5) 08/01/23 05:50 Albumin/Globulin Ratio 0.8 Ratio (1.1-2.1) L 08/01/23 05:50 Amylase 24 Units/L (25-115) L 07/28/23 08:29 Lipase 37 Units/L (16-77) 07/28/23 08:29 Resp Viral Panel (PCR) See scanned report 07/28/23 13:15 Blood Type A POSITIVE 07/30/23 22:30 Antibody Screen Negative 07/30/23 22:30 Crossmatch See Detail 07/30/23 22:30 Assessment and Plan 1: Status post the placement of PEG tube. Gastroparesis. Will try feeding again today. 3: Recent weight loss and malnutrition. For nutritional support. DVT prophylaxis Problem Patient Problems: Patient Problems Acute exacerbation of chronic obstructive pulmonary disease (Acute) J44.1 Abdominal pain (Acute) R10.9 Hypoxemia (Acute) R09.02
[2023-08-01] MEDS ORDERED: MYLICON TAB 80 MG CHEW PO PRN (09:35)
[2023-08-01] MEDS ORDERED: MYLICON TAB 80 MG CHEW PO SCH (10:00)
[2023-08-01] MEDS: LEVSIN/MAALOX/LIDOC VISC PO PRN (10:19)
[2023-08-01] MEDS: POTASSIUM CHLORIDE LIQ PO SCH (10:22)
--- NOTE | 2023-08-01 10:55 | PCM.PROG ---
Progress Note Progress Note for Day of Date of Exam: 08/01/23 Subjective Subjective: Patient is a 68 year old male admitted for dysphagia, anemia, and copd exacerbation. This morning he is resting in bed. No acute events overnight. He is on tube feeds but had a lot of residual. General surgery is managing. He reports improvement in his symptoms including breathing. Labs/imaging reviewed -WBC 17.6, Hgb 9.5, Plt 305, Na 142, K 3.8, Creatinine 0.62, Glucose 111. -AIT negative -blood cx (-) Plan: Will continue to follow recommendations as per surgery regarding tube feeds. Ensure prn. Continue home medications, patient takes them with apple sauce. Replace electrolytes as per protocol. PT/OT as tolerated. Wean O2 as tolerated. Continue Zosyn, and bronchodilators. Can discontinue solumedrol. Monitor AM labs/imaging. Past Medical Family Social History Past Med/Fam/Surg Hx: No changes since H&P Allergies: Allergies No Known Allergies Allergy (Verified 06/05/23 15:40) Review of Systems ROS changes noted: see HPI Vital Signs and I&O's Vital Signs: Vital Signs Temperature 97.7 F Pulse Rate [Right Brachial] 67 Respiratory Rate 20 Respiratory Rate 20 Respiratory Rate 20 Blood Pressure [Right Arm] 110/71 O2 Sat by Pulse Oximetry 95 Intake and Output: Intake & Output 07/29/23 07/30/23 07/31/23 08/01/23 23:59 23:59 23:59 23:59 Intake Total 1711 / 1711 1631 / 1631 3258 / 3258 888 / 888 Output Total 1025 / 1025 800 / 800 1999 / 1999 350 / 350 Balance 686 / 686 831 / 831 1258 / 1258 538 / 538 Physical Exam Oriented: Normal Eyes: Normal Nose: Normal Throat: Dry Respiratory: Generalized and Diminished Cardiovascular: Normal Auscultation: Bowel Sounds: Normal Tenderness: Periumbilical and Mild (No leakage around the PEG tube.) Skin: Decreased Turgur Musculoskeletal: Normal Psychiatric: Normal Mood Description: Calm Affect: Normal Speech Pattern: Clear and Appropriate Laboratory and Diagnostics 08/01/23 05:50 08/01/23 05:50 Labs: 07/28/23 08:29 Blood Blood Culture - Preliminary 07/28/23 08:29 Blood Blood Culture - Preliminary Laboratory WBC 17.6 X10^3/uL (3.6-10.0) H 08/01/23 05:50 RBC 3.18 X10^6/uL (4.7-6.0) L 08/01/23 05:50 Hgb 9.5 g/dL (13.5-18.0) L 08/01/23 05:50 Hct 28.9 % (42.0-54.0) L 08/01/23 05:50 MCV 90.7 fL (80.0-100.0) 08/01/23 05:50 MCH 30.0 pg (27.0-34.0) 08/01/23 05:50 MCHC 33.0 g/dL (33.0-35.0) 08/01/23 05:50 RDW 15.6 % (11.6-16.5) 08/01/23 05:50 Plt Count 305 X10^3/uL (150.0-450.0) 08/01/23 05:50 Plt Count Comment Adequate (ADEQUATE) 07/31/23 09:19 MPV 8.9 fL (7.4-11.0) 08/01/23 05:50 Neut % (Auto) 87.8 % (42.0-75.0) H 08/01/23 05:50 Lymph % (Auto) 4.6 % (21.0-51.0) L 08/01/23 05:50 [place] % (Auto) 7.5 % (0.0-13.0) 08/01/23 05:50 Eos % (Auto) 0.0 % (0.9-2.9) L 08/01/23 05:50 Baso % (Auto) 0.1 % (0.2-1.0) L 08/01/23 05:50 Neut # (Auto) 15.4 x10^3/uL (2.2-4.8) H 08/01/23 05:50 Lymph # (Auto) 0.8 X10^3/uL (1.3-2.9) L 08/01/23 05:50 [place] # (Auto) 1.3 x10^3/uL (0.3-0.8) H 08/01/23 05:50 Eos # (Auto) 0.0 x10^3/uL (0.0-0.2) 08/01/23 05:50 Baso # (Auto) 0.0 X10^3/uL (0.0-0.1) 08/01/23 05:50 Absolute Nucleated RBC 0.3 /100WBC 08/01/23 05:50 Total Counted 100 07/31/23 09:19 Neutrophils % (Manual) 91 % (39-76) H 07/31/23 09:19 Band Neutrophils % 2 % (0-10) 07/31/23 09:19 Lymphocytes % (Manual) 4 % (13-43) L 07/31/23 09:19 Monocytes % (Manual) 3 % (4-9) L 07/31/23 09:19 Plt Morphology Comment Normal (NORMAL) 07/31/23 09:19 RBC Morphology Normal (NORMAL) 07/31/23 09:19 Sample Site Rrad 07/28/23 08:16 ABG pH 7.510 (7.35-7.45) H 07/28/23 08:16 ABG pCO2 26.0 mmHg (35.0-45.0) L 07/28/23 08:16 ABG pO2 59.0 mmHg (80.0-100.0) L 07/28/23 08:16 ABG HCO3 20.7 mmol/L (22-26) L 07/28/23 08:16 ABG O2 Saturation 93.0 % (90-100) 07/28/23 08:16 ABG Base Excess -1.1 mmol/L (-2.0-2.0) 07/28/23 08:16 Cyrus Test Pos 07/28/23 08:16 A-a Gradient 165.0 mmHg 07/28/23 08:16 FiO2 36.0 07/28/23 08:16 Blood Gas Comments Pt kenney well elj cdn 07/28/23 08:16 Sodium 142 mmol/L (136-145) 08/01/23 05:50 Corrected Sodium 142 mmol/L (136-145) 08/01/23 05:50 Potassium 3.8 mmol/L (3.5-5.1) 08/01/23 05:50 Chloride 112 mmol/L (98-107) H 08/01/23 05:50 Carbon Dioxide 23.6 mmol/L (21-32) 08/01/23 05:50 BUN 20 mg/dL (7-18) H 08/01/23 05:50 Creatinine 0.62 mg/dL (0.70-1.30) L 08/01/23 05:50 Est GFR (MDRD) Af Amer > 60 (>60) 08/01/23 05:50 Est GFR (MDRD) Non-Af > 60 (>60) 08/01/23 05:50 Glucose 111 mg/dL (65-99) H 08/01/23 05:50 Lactic Acid 0.9 mmol/L (0.4-2.0) 07/28/23 10:34 Calcium 8.0 mg/dL (8.5-10.1) L 08/01/23 05:50 Corrected Calcium 9.4 mg/dL (8.5-10.1) 08/01/23 05:50 Magnesium 2.2 mg/dL (2.0-2.9) 08/01/23 05:50 Total Bilirubin 0.70 mg/dL (0.2-1.0) 08/01/23 05:50 AST 57 Units/L (15-37) H 08/01/23 05:50 ALT 141 Units/L (12-78) H 08/01/23 05:50 Alkaline Phosphatase 56 Units/L (46-116) 08/01/23 05:50 Creatine Kinase 37 Units/L (39-308) L 07/28/23 08:29 Troponin I High Sens 20.2 ng/L (4.0-60.0) 07/28/23 12:30 Total Protein 5.3 g/dL (6.4-8.2) L 08/01/23 05:50 Albumin 2.3 g/dL (3.4-5.0) L 08/01/23 05:50 Globulin 3.0 g/dL (2.5-4.5) 08/01/23 05:50 Albumin/Globulin Ratio 0.8 Ratio (1.1-2.1) L 08/01/23 05:50 Amylase 24 Units/L (25-115) L 07/28/23 08:29 Lipase 37 Units/L (16-77) 07/28/23 08:29 Resp Viral Panel (PCR) See scanned report 07/28/23 13:15 Blood Type A POSITIVE 07/30/23 22:30 Antibody Screen Negative 07/30/23 22:30 Crossmatch See Detail 07/30/23 22:30 Plan (1) Anemia: Status: Acute Qualifiers: Anemia type: unspecified type Qualified Code(s): D64.9 - Anemia, unspecified (2) Acute exacerbation of chronic obstructive pulmonary disease: Status: Acute (3) Dysphagia: Status: Acute Qualifiers: Dysphagia type: unspecified Qualified Code(s): R13.10 - Dysphagia, unspecified (4) Weight loss: Status: Acute (5) At risk for aspiration pneumonia: Status: Acute (6) Hyperlipidemia: Status: Acute Qualifiers: Hyperlipidemia type: mixed hyperlipidemia Qualified Code(s): E78.2 - Mixed hyperlipidemia (7) Hypothyroidism: Status: Acute Qualifiers: Hypothyroidism type: acquired Qualified Code(s): E03.9 - Hypothyro idism, unspecified (8) Hypertension: Status: Acute Qualifiers: Hypertension type: primary hypertension Qualified Code(s): I10 - Essential (primary) hypertension (9) Interstitial lung disease: Status: Acute (10) Leukemia: Status: Acute Qualifiers: 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
[2023-08-01] MEDS ORDERED: COLACE CAP 100 MG PO PRN (20:41)
[2023-08-01] MEDS: MILK OF MAGNESIA PO PRN (21:05)
[2023-08-02 06:16] LABS: BASOPHILS # (AUTO) 0.1 X10^3/uL (0.0-0.1); BASOPHILS % (AUTO) 0.3 % (0.2-1.0); EOSINOPHILS % (AUTO) 0.2 % (0.9-2.9); HEMATOCRIT 32.1 % (42.0-54.0); HEMOGLOBIN 10.7 g/dL (13.5-18.0); LYMPHOCYTES # (AUTO) 1.3 X10^3/uL (1.3-2.9); MEAN CORPUSCULAR HEMOGLOBIN 30.3 pg (27.0-34.0); MEAN CORPUSCULAR HGB CONC 33.3 g/dL (33.0-35.0); MEAN CORPUSCULAR VOLUME 91.2 fL (80.0-100.0); MEAN PLATELET VOLUME 8.8 fL (7.4-11.0); MONOCYTES # (AUTO) 1.1 x10^3/uL (0.3-0.8); NEUTROPHILS # (AUTO) 15.3 x10^3/uL (2.2-4.8); NEUTROPHILS % (AUTO) 86.5 % (42.0-75.0); PLATELET COUNT 323 X10^3/uL (150.0-450.0); RED BLOOD COUNT 3.52 X10^6/uL (4.7-6.0); RED CELL DISTRIBUTION WIDTH 15.9 % (11.6-16.5); WHITE BLOOD COUNT 17.8 X10^3/uL (3.6-10.0)
[2023-08-02 06:27] LABS: ALANINE AMINOTRANSFERASE 175 Units/L (12-78); ALBUMIN 2.4 g/dL (3.4-5.0); ALKALINE PHOSPHATASE 70 Units/L (46-116); ASPARTATE AMINO TRANSFERASE 59 Units/L (15-37); BLOOD UREA NITROGEN 21 mg/dL (7-18); CALCIUM 8.3 mg/dL (8.5-10.1); CARBON DIOXIDE 25.7 mmol/L (21-32); CHLORIDE 111 mmol/L (98-107); COR CA(FOR HYPOALB) 9.6 mg/dL (8.5-10.1); CREATININE 0.67 mg/dL (0.70-1.30); GLUCOSE 82 mg/dL (65-99); POTASSIUM 3.7 mmol/L (3.5-5.1); SODIUM 143 mmol/L (136-145); TOTAL PROTEIN 5.9 g/dL (6.4-8.2); eGFR NON BLACK RACES > 60 (>60)
[2023-08-02] MEDS ORDERED: CONSULT PHARMACY - POTASSIUM & MAGNESIUM XX SCH (07:00)
[2023-08-02 07:17] LABS: PLATELET MORPHOLOGY COMMENT NORMAL (NORMAL)
[2023-08-02] MEDS: KLOR-CON PO SCH (08:23)
[2023-08-02 08:47] VITALS: BP 121/81; PULSE 77; TEMP 97.8; O2SAT 94
[2023-08-02 14:06] VITALS: RESP 22
== END 2023-08-02 15:25 | disposition home or self-care (01) | DRG 191 ==
LOC: MED/SURG 07:57 → ER 07:57 → OBSVTOIN 12:50 → MED/SURG 13:03
PROVIDERS: ADMIT Internal Medicine; ATTEND Internal Medicine
DX: C92.91 Myeloid leukemia, unspecified in remission; R13.11 Dysphagia, oral phase; R63.0 Anorexia; K59.09 Other constipation; D64.89 Other specified anemias; I10 Essential (primary) hypertension; R06.02 Shortness of breath; R10.84 Generalized abdominal pain; J44.1 Chronic obstructive pulmonary disease with (acute) exacerbation; Z68.1 Body mass index [BMI] 19.9 or less, adult; R94.31 Abnormal electrocardiogram [ECG] [EKG]; R26.89 Other abnormalities of gait and mobility; K31.84 Gastroparesis; R09.02 Hypoxemia; E03.8 Other specified hypothyroidism

== ENCOUNTER 2023-08-04 18:25 | Inpatient (IN) ==
[2023-08-04 18:40] LABS: ABG ALLEN TEST POS; ABG BASE EXCESS 3.6 mmol/L (-2.0-2.0); ABG HCO3 25.9 mmol/L (22-26)
--- NOTE | 2023-08-04 18:46 | EKG ---
Test Reason : shortness of breath Blood Pressure : */* mmHG Vent. Rate : 107 BPM Atrial Rate : 107 BPM P-R Int : 156 ms QRS Dur : 112 ms QT Int : 364 ms P-R-T Axes : 41 -25 63 degrees QTc Int : 485 ms Critical Test Result: STEMI Sinus tachycardia with premature atrial complexes Minimal voltage criteria for LVH, may be normal variant ( Roberts product ) Anterior infarct , new Inferior injury pattern ACUTE TX / STEMI Consider right ventricular involvement in acute inferior infarct Abnormal ECG When compared with ECG of 28-JUL-2023 12:30, premature atrial complexes are now present Left bundle branch block is no longer present st elevation seen on last EKG but with complete LBBB Confirmed by Robbi Irizarry MD ([id number]) on 08/05/2023 6:12:19 AM Referred By: Confirmed By: Robbi Irizarry MD
--- NOTE | 2023-08-04 19:09 | DR.CONMALE ---
HPI Time Seen Time Seen by Provider: 08/04/23 19:09 Complaint Chief Complaint Doctors Comments: Patient presented 1 week ago because he was unable to eat to gain calories. He wanted to get a peg tube placed. Patient was admitted to the medical service 07/29/2023. Dr Barboza placed his peg tube. Patient was d/c home 2 days ago. He presents today with:sob, abdl distention,abdominal pain.Patient gave himself an enema yesterday because he was diagnosed with constipation and had not had a BM. Patient denies: fever, hematemesis, chest pain, cough, back pain.Per medical record review Patient has a h/o CHF, interstitial lung disease, CML. COVID-19 Coronavirus risk:travel/contact w/high risk person: No Has patient experienced Coronavirus symptoms: No Timing Onset of Chief Complaint: 07/29/23 PMH PMH Past Medical History: Yes Past Medical History: Anemia, Anxiety, CHF, COPD, Coronary Artery Disease, Depression, Dyslipidemia, GERD, Hypertension, Hypothyroidism and PUD Past Medical History Comment: EMPHYSEMA FIBROSIS THORACIC AORTIC ANEURSYM GASTRITIS SEPSIS CML Past Surgical History: Yes Surgical History: Angioplasty/Stents, Appendectomy, Cholecystectomy and Ortho Surgery Past Surgical History Comment: FACIAL JAW LEFT ROTATOR CUFF RIGHT KNEE Family History History of Family Medical Conditions: Yes Family Medical History: Cancer and Coronary Artery Disease Social History Does patient currently use any type of tobacco product: No Have you used tobacco products in the last 12 months: No Type of Tobacco Use: None Does any household member use tobacco: No Alcohol Use: None Do you use any recreational Drugs:: No Lives With: Family Lives Where: Home Travel Risk Coronavirus risk:travel/contact w/high risk person: No Has patient experienced Coronavirus symptoms: No Infectious screening In the last 2 months have you had wt loss of >10#?: NO Have you had fever, night sweats or hemotysis?: No Have you traveled outside the country in the last 6 months?: No Isolation: Standard ROS Review of Systems Constitutional: Malaise Eyes: No Symptoms Reported ENTM: No Symptoms Reported Respiratoy: Short of Breath Cardiovascular: negative Chest Pain Gastrointestinal/Abdominal: Abdominal Pain, Constipation and Other (Abdominal distention) Genitourinary: No Symptoms Reported Neurological: No Symptoms Reported Musculoskeletal: No Symptoms Reported Integumentary: No Symptoms Reported Hematologic/Lymphatic: No Symptoms Reported Endocrine: No Symptoms Reported Psychiatric: No Symptoms Reported All Other Systems: Reviewed and Negative PE Vital Signs Vital Signs: Temp Pulse Resp BP BP Pulse Ox O2 Del Method 08/05/23 00:00 115/78 08/05/23 00:00 87 33 H 98 08/04/23 23:45 89 36 H 98 08/04/23 23:30 90 46 H 98 08/04/23 23:30 116/73 08/04/23 23:15 90 36 H 99 08/04/23 23:00 89 27 H 99 08/04/23 23:00 117/76 08/04/23 22:45 89 24 100 08/04/23 22:30 88 31 H 97 08/04/23 22:30 120/74 08/04/23 22:15 95 H 36 H 84 L 08/04/23 22:00 94 H 41 H 96 08/04/23 22:00 119/79 08/04/23 21:45 92 H 42 H 98 08/04/23 21:41 115/90 08/04/23 21:41 93 H 54 H 97 08/04/23 21:30 93 H 19 98 08/04/23 21:15 94 H 16 85 L 08/04/23 21:00 96 H 19 99 08/04/23 20:45 94 H 19 98 08/04/23 20:30 92 H 29 H 98 08/04/23 20:15 90 97 08/04/23 20:04 93 H 90 L 08/04/23 19:45 94 H 33 H 96 08/04/23 19:38 95 H 31 H 95 08/04/23 19:38 110/74 08/04/23 19:30 89 L 08/04/23 19:04 98 H 62 H 96 08/04/23 20:27 33 H 08/04/23 18:25 98.2 F 99 H 28 H 97/68 92 L Nasal Cannula 08/02/23 08:00 121/81 General Limitations: No Limitations General Appearance: Alert and In No Apparent Distress Head Head Exam: Normal Inspection Eyes Eye exam: Normal Appearance ENT ENT Exam: Mucous Membranes Dry Neck Neck Exam: Normal Inspection Chest Chest Inspection: Normal Inspection Respiratory Respiratory Exam: Other (decreased BS) Respiratory Exam: Bilateral: Decreased Breath Sounds Cardiovascular Cardiovascular Exam: Regular Rate and Normal Rhythm Gastrointestinal Abdominal Exam: Distention, Tenderness (generalized) and Dimnished Bowel Sounds Rectal Rectal: Deferred Extremities Extremities Exam: Normal Inspection Back Back Exam: Normal Inspection MDM Differential Diagnosis Differential Diagnosis: Bowel obstruction, Inflammatory BD, Ischemic Bowel and Other (Bowel perforation, CHF, Electrolyte disorder,Pneumonia,Bowel Perforation) COURSE Treatment Treatment: Patient was brought to a monitored room. IV access was initiated and labs and tests were ordered. Patient had potassium of 2.7 and was given 20 mill equivalents KCl IV. Patient's WBC is 23.8 and he was given Zosyn 3.375 g IV. Patient's D-dimer was 1.31 and CTA chest was ordered. The CTA chest revealed cardiogenic edema, and a large pneumoperitoneum. CT abdomen without contrast revealed a large pneumoperitoneum subcutaneous emphysema left thoracic and left abdominal wall, multiple small bowel loops representing possible ileus versus enteritis,CXR bilateral pneumonia. Doxycycline 100 mg IV twice daily iv.Swenson catheter was placed. Patient has 3 L oxygen by nasal cannula and his sat has been 97 to 98% in the ED. Discussed case with Dr. Forman who has accepted the patient to his service for further evaluation. ROR Labs Reviewed Laboratory Results Reviewed?: Yes 08/04/23 18:55 08/04/23 18:55 Laboratory: WBC 23.8 X10^3/uL (3.6-10.0) H 08/04/23 18:55 RBC 3.73 X10^6/uL (4.7-6.0) L 08/04/23 18:55 Hgb 11.0 g/dL (13.5-18.0) L 08/04/23 18:55 Hct 34.0 % (42.0-54.0) L 08/04/23 18:55 MCV 91.2 fL (80.0-100.0) 08/04/23 18:55 MCH 29.6 pg (27.0-34.0) 08/04/23 18:55 MCHC 32.4 g/dL (33.0-35.0) L 08/04/23 18:55 RDW 16.8 % (11.6-16.5) H 08/04/23 18:55 Plt Count 402 X10^3/uL (150.0-450.0) 08/04/23 18:55 Plt Count Comment Adequate (ADEQUATE) 08/04/23 18:55 MPV 9.5 fL (7.4-11.0) 08/04/23 18:55 Neut % (Auto) 87.4 % (42.0-75.0) H 08/04/23 18:55 Lymph % (Auto) 5.4 % (21.0-51.0) L 08/04/23 18:55 Glenn % (Auto) 6.1 % (0.0-13.0) 08/04/23 18:55 Eos % (Auto) 0.8 % (0.9-2.9) L 08/04/23 18:55 Baso % (Auto) 0.3 % (0.2-1.0) 08/04/23 18:55 Neut # (Auto) 20.8 x10^3/uL (2.2-4.8) H 08/04/23 18:55 Lymph # (Auto) 1.3 X10^3/uL (1.3-2.9) 08/04/23 18:55 Glenn # (Auto) 1.4 x10^3/uL (0.3-0.8) H 08/04/23 18:55 Eos # (Auto) 0.2 x10^3/uL (0.0-0.2) 08/04/23 18:55 Baso # (Auto) 0.1 X10^3/uL (0.0-0.1) 08/04/23 18:55 Absolute Nucleated RBC 0.2 /100WBC 08/04/23 18:55 Total Counted 100 08/04/23 18:55 Neutrophils % (Manual) 91 % (39-76) H 08/04/23 18:55 Lymphocytes % (Manual) 4 % (13-43) L 08/04/23 18:55 Monocytes % (Manual) 4 % (4-9) 08/04/23 18:55 Eosinophils % (Manual) 1 % (0-6) 08/04/23 18:55 Plt Morphology Comment Normal (NORMAL) 08/04/23 18:55 RBC Morphology Abnormal (NORMAL) 08/04/23 18:55 Anisocytosis Slight A 08/04/23 18:55 PT 13.7 SECONDS (11.8-14.3) 08/04/23 18:55 INR Target Range - 08/04/23 18:55 INR 1.07 (0.8-1.3) 08/04/23 18:55 APTT 33.3 SECONDS (22.9-36.5) 08/04/23 18:55 PTT Comment - 08/04/23 18:55 D-Dimer 1.31 ug/ml (0.0-0.57) H 08/04/23 18:55 Sample Site Rra 08/04/23 18:36 ABG pH 7.530 (7.35-7.45) H 08/04/23 18:36 ABG pCO2 31.0 mmHg (35.0-45.0) L 08/04/23 18:36 ABG pO2 52.0 mmHg (80.0-100.0) L 08/04/23 18:36 ABG HCO3 25.9 mmol/L (22-26) 08/04/23 18:36 ABG O2 Saturation 90.0 % (90-100) 08/04/23 18:36 ABG Base Excess 3.6 mmol/L (-2.0-2.0) H 08/04/23 18:36 Cyrus Test Pos 08/04/23 18:36 A-a Gradient 166.0 mmHg 08/04/23 18:36 FiO2 36.0 08/04/23 18:36 Blood Gas Comments Pt kenney well eb 08/04/23 18:36 Sodium 143 mmol/L (136-145) 08/04/23 18:55 Corrected Sodium TNP 08/04/23 18:55 Potassium 2.7 mmol/L (3.5-5.1) L* 08/04/23 18:55 Chloride 105 mmol/L (98-107) 08/04/23 18:55 Carbon Dioxide 28.4 mmol/L (21-32) 08/04/23 18:55 BUN 15 mg/dL (7-18) 08/04/23 18:55 Creatinine 0.84 mg/dL (0.70-1.30) 08/04/23 18:55 Est GFR (MDRD) Af Amer > 60 (>60) 08/04/23 18:55 Est GFR (MDRD) Non-Af > 60 (>60) 08/04/23 18:55 Glucose 106 mg/dL (65-99) H 08/04/23 18:55 Lactic Acid 1.4 mmol/L (0.4-2.0) 08/04/23 18:55 Calcium 8.4 mg/dL (8.5-10.1) L 08/04/23 18:55 Corrected Calcium 9.6 mg/dL (8.5-10.1) 08/04/23 18:55 Magnesium 4.1 mg/dL (2.0-2.9) H 08/04/23 18:55 Total Bilirubin 0.70 mg/dL (0.2-1.0) 08/04/23 18:55 AST 44 Units/L (15-37) H 08/04/23 18:55 ALT 128 Units/L (12-78) H 08/04/23 18:55 Alkaline Phosphatase 87 Units/L (46-116) 08/04/23 18:55 B-Natriuretic Peptide 194 pg/mL (0-79) H 08/04/23 18:55 Total Protein 6.4 g/dL (6.4-8.2) 08/04/23 18:55 Albumin 2.5 g/dL (3.4-5.0) L 08/04/23 18:55 Globulin 3.9 g/dL (2.5-4.5) 08/04/23 18:55 Albumin/Globulin Ratio 0.6 Ratio (1.1-2.1) L 08/04/23 18:55 Opioid Opioid Risk Tool Age ([place] box if 16-45): No History of Preadolescent Sexual Abuse: No Total: 0 Total Score Risk Category: Low Risk Copyright: Alpesh HODGES predicting aberrant behaviors Discharge Plan Diagnosis Discharge Problem: Pneumoperitoneum, Leukocytosis, Acute hypokalemia, Pulmonary edema, Bilateral pneumonia Discharge Plan Patient Disposition: ADMITTED INPATIENT Condition: Stable
[2023-08-04 19:23] LABS: INR 1.07 (0.8-1.3)
[2023-08-04 19:24] LABS: BASOPHILS # (AUTO) 0.1 X10^3/uL (0.0-0.1); BASOPHILS % (AUTO) 0.3 % (0.2-1.0); EOSINOPHILS # (AUTO) 0.2 x10^3/uL (0.0-0.2); EOSINOPHILS % (AUTO) 0.8 % (0.9-2.9); LYMPHOCYTES # (AUTO) 1.3 X10^3/uL (1.3-2.9); LYMPHOCYTES % (AUTO) 5.4 % (21.0-51.0); MEAN CORPUSCULAR HEMOGLOBIN 29.6 pg (27.0-34.0); MEAN CORPUSCULAR HGB CONC 32.4 g/dL (33.0-35.0); MEAN CORPUSCULAR VOLUME 91.2 fL (80.0-100.0); MEAN PLATELET VOLUME 9.5 fL (7.4-11.0); MONOCYTES # (AUTO) 1.4 x10^3/uL (0.3-0.8); MONOCYTES % (AUTO) 6.1 % (0.0-13.0); NEUTROPHILS # (AUTO) 20.8 x10^3/uL (2.2-4.8); NEUTROPHILS % (AUTO) 87.4 % (42.0-75.0); PLATELET COUNT 402 X10^3/uL (150.0-450.0); RED BLOOD COUNT 3.73 X10^6/uL (4.7-6.0); RED CELL DISTRIBUTION WIDTH 16.8 % (11.6-16.5); WHITE BLOOD COUNT 23.8 X10^3/uL (3.6-10.0)
[2023-08-04 19:28] LABS: ALANINE AMINOTRANSFERASE 128 Units/L (12-78); ALBUMIN 2.5 g/dL (3.4-5.0); ALKALINE PHOSPHATASE 87 Units/L (46-116); ASPARTATE AMINO TRANSFERASE 44 Units/L (15-37); BLOOD UREA NITROGEN 15 mg/dL (7-18); CALCIUM 8.4 mg/dL (8.5-10.1); CARBON DIOXIDE 28.4 mmol/L (21-32); CHLORIDE 105 mmol/L (98-107); COR CA(FOR HYPOALB) 9.6 mg/dL (8.5-10.1); CREATININE 0.84 mg/dL (0.70-1.30); GLUCOSE 106 mg/dL (65-99); MAGNESIUM 4.1 mg/dL (2.0-2.9); SODIUM 143 mmol/L (136-145); TOTAL PROTEIN 6.4 g/dL (6.4-8.2); eGFR NON BLACK RACES > 60 (>60)
[2023-08-04 19:32] LABS: POTASSIUM 2.7 mmol/L (3.5-5.1)
[2023-08-04 19:38] LABS: ANISOCYTOSIS SLIGHT; PLATELET MORPHOLOGY COMMENT NORMAL (NORMAL)
[2023-08-04] MEDS: NS 1,000 ML IV 1,000 ML IV SCH (19:43)
[2023-08-04] MEDS: K-RIDER 10 MEQ/100 ML WATER 10 MEQ/100 ML BAG IV ONE ×2 (19:44→20:54)
--- NOTE | 2023-08-04 19:56 | CT ---
EXAM:ABDOMEN/PELVIS W/O CONHISTORY:ABD PAIN, PT STATES MOSTLY LEFT SIDED ABDOMINAL PAIN; SHORTNESS OF BREATH AND ABDOMINAL PAINCOMPARISON:July 28, 2023TECHNIQUE:Non-contrasted axial CT images of the abdomen and pelvis were obtained and reformatted into coronal and sagittal planes for further evaluation.Radiation dose: 202.43 mGy-cm total DLPFINDINGS:Moderate centrilobular emphysema.Diffuse thickening of the interstitial markings in the left upper lobe and lower lobes.Stomach appears normal.Percutaneous gastrostomy tube in place with tip in the distal body of the stomach.Solid visceral organs of the upper abdomen are unremarkable.Status post cholecystectomy.No intra or extrahepatic biliary dilatation.Unremarkable appearance of the kidneys.No hydronephrosis, hydroureter or ureteral calculus.Unremarkable appearance of the urinary bladder.Multiple loops of mildly dilated small bowel throughout the abdomen with no small bowel wall thickening.Small to moderate stool burden in the colon.Reproductive structures are unremarkable.No evidence of acute appendicitis.Severe pneumoperitoneum.Subcutaneous emphysema throughout the left thoracic and left abdominal wall.No significant fluid collection.No adenopathy.No acute osseous abnormality.IMPRESSION:1. Severe pneumoperitoneum; most consistent with perforation of a hollow viscus. The source of the pneumoperitoneum is not identified. Subcutaneous emphysema throughout the left thoracic and left abdominal helton.2. Multiple loops of mildly dilated fluid-filled small bowel with no small bowel wall thickening or transition point to decompression. Findings could represent a nonspecific enteritis or ileus.3. Moderate centrilobular emphysema.4. Diffuse thickening of the interstitial markings in the left upper lobe and lower lobes. Findings could represent acute pulmonary edema.THIS IS AN ELECTRONICALLY VERIFIED FINAL REPORT08/04/2023 7:52 PM - Electronically signed by Bunny Young MD
--- NOTE | 2023-08-04 20:23 | CT ---
EXAM:CTA, CHESTHISTORY:elevated d-dimer ; SOBCOMPARISON:Chest radiograph from August 04, 2023TECHNIQUE:Axial CT images of the chest were obtained after the administration of 75 mL Omnipaque 350 IV contrast utilizing a CTA protocol. 3D MIPS were performed and reviewed for further evaluation.Radiation dose: 158.23 mGy-cm total DLPFINDINGS:No significant pericardial effusion.Cardiac chambers are enlarged.No mediastinal or hilar lymphadenopathy.Aorta is normal in caliber without dissection.Pulmonary arteries are normal in caliber without filling defects to suggest a pulmonary embolus.Airways are widely patent.Thyroid appears normal.No pleural effusion.No focal infiltrate.Moderate centrilobular emphysema.Diffuse increased interstitial markings in the left upper and both lower lobes.No pneumothorax.No concerning lung parenchymal lesion identified.Severe pneumoperitoneum in the upper abdomen as well as subcutaneous emphysema throughout the soft tissues of the lower left neck, left thorax and left abdomen.No acute osseous abnormality.IMPRESSION:1. Findings are concerning for acute cardiogenic edema.2. Moderate centrilobular emphysema.3. Severe pneumoperitoneum in the upper abdomen as well as subcutaneous emphysema throughout the soft tissues of the lower left neck, left thorax and left abdomen.THIS IS AN ELECTRONICALLY VERIFIED FINAL REPORT08/04/2023 8:19 PM - Electronically signed by Bunny Young MD
[2023-08-04] MEDS: ZOFRAN INJ 4 MG VIAL IVP ONE (20:24)
[2023-08-04] MEDS: DILAUDID INJ IVP ONE (20:27)
[2023-08-04] MEDS: NS 500 ML IV 500 ML IV ONE (21:53)
[2023-08-04] MEDS: ZOSYN VIAL 3.375 GRAMS 3.375 G in NS 100 ML IV 100 ML IV ONE (21:54)
--- NOTE | 2023-08-04 22:22 | RAD ---
PROCEDURE: Chest X-ray 1 View.HISTORY: SHORTNESS OF BREATH; .TECHNIQUE: AP portable upright done at 7:13 p.m..COMPARISON: 07/28/2023.TECHNICAL QUALITY: Satisfactory.FINDINGS:Heart size upper limits of normal and unchanged.Mediastinum and hilar regions show no masses or lymphadenopathy.Normal central vascularity.Consolidation lung bases consistent with pneumonia. No pleural fluid or pneumothorax.No acute bony abnormality.Massive pneumoperitoneum under both hemidiaphragmsIMPRESSION:1. Bibasilar pneumonia.2. Heart size upper limits of normal.3. Pneumoperitoneum.THIS IS AN ELECTRONICALLY VERIFIED FINAL REPORT08/04/2023 10:19 PM - Electronically signed by Gilbert Zarate MD
[2023-08-05] MEDS ORDERED: PROVENTIL NEB TX 0.083% 2.5MG/ 3ML IN PRN (00:29)
[2023-08-05] MEDS ORDERED: RESTORIL CAP 15 MG PO PRN (00:29)
[2023-08-05] MEDS ORDERED: FLEXERIL TAB 10 MG PO PRN (00:29)
[2023-08-05] MEDS: OMNIPAQUE 350 mg/mL 100 mL BTL 100 ML ONE (00:33)
[2023-08-05] MEDS: ZOSYN VIAL 3.375 GRAMS 3.375 G in NS 100 ML IV 100 ML IV SCH (00:34)
[2023-08-05 00:41] LABS: BILIRUBIN,URINE 1+ (NEGATIVE); BLOOD/HEMOGLOBIN,URINE 1+ (NEGATIVE); GLUCOSE, URINE NEGATIVE (NEGATIVE); KETONES,URINE 1+ (NEGATIVE); LEUKOCYTE ESTERASE ,URINE NEGATIVE (NEGATIVE); NITRITES,URINE NEGATIVE (NEGATIVE); PROTEIN,URINE 2+ (NEGATIVE); UROBILINOGEN,URINE 4+ (NORMAL)
[2023-08-05 00:48] LABS: APPEARANCE,URINE CLEAR (CLEAR); BACTERIA,URINE TRACE /HPF (NEGATIVE); COLOR,URINE DARK YELLOW (YELLOW); RBC,URINE 0-2 /HPF (0-3); SQUAMOUS EPITHELIAL CELL,UR RARE /HPF (NEGATIVE)
[2023-08-05] MEDS ORDERED: CONSULT PHARMACY - POTASSIUM & MAGNESIUM XX SCH ×2 (01:00→06:03)
[2023-08-05] MEDS ORDERED: PROVENTIL NEB TX 0.083% 2.5MG/ 3ML ONE (01:28)
[2023-08-05] MEDS: PROVENTIL NEB TX 0.083% 2.5MG/ 3ML IN SCH (01:37)
[2023-08-05 05:32] LABS: BASOPHILS # (AUTO) 0.1 X10^3/uL (0.0-0.1); BASOPHILS % (AUTO) 0.5 % (0.2-1.0); EOSINOPHILS # (AUTO) 0.3 x10^3/uL (0.0-0.2); EOSINOPHILS % (AUTO) 1.4 % (0.9-2.9); HEMOGLOBIN 9.9 g/dL (13.5-18.0); LYMPHOCYTES # (AUTO) 0.9 X10^3/uL (1.3-2.9); LYMPHOCYTES % (AUTO) 4.4 % (21.0-51.0); MEAN CORPUSCULAR HEMOGLOBIN 29.8 pg (27.0-34.0); MEAN CORPUSCULAR HGB CONC 32.9 g/dL (33.0-35.0); MEAN CORPUSCULAR VOLUME 90.6 fL (80.0-100.0); MEAN PLATELET VOLUME 9.6 fL (7.4-11.0); MONOCYTES # (AUTO) 1.6 x10^3/uL (0.3-0.8); MONOCYTES % (AUTO) 7.6 % (0.0-13.0); NEUTROPHILS # (AUTO) 17.6 x10^3/uL (2.2-4.8); NEUTROPHILS % (AUTO) 86.1 % (42.0-75.0); PLATELET COUNT 321 X10^3/uL (150.0-450.0); RED BLOOD COUNT 3.32 X10^6/uL (4.7-6.0); RED CELL DISTRIBUTION WIDTH 16.5 % (11.6-16.5); WHITE BLOOD COUNT 20.4 X10^3/uL (3.6-10.0)
[2023-08-05] MEDS ORDERED: NS 250 ML IV 250 ML IV ONE (05:40)
[2023-08-05 05:47] LABS: ALANINE AMINOTRANSFERASE 101 Units/L (12-78); ALBUMIN 2.1 g/dL (3.4-5.0); ALKALINE PHOSPHATASE 71 Units/L (46-116); ASPARTATE AMINO TRANSFERASE 34 Units/L (15-37); BLOOD UREA NITROGEN 16 mg/dL (7-18); CALCIUM 7.7 mg/dL (8.5-10.1); CARBON DIOXIDE 27.9 mmol/L (21-32); CHLORIDE 109 mmol/L (98-107); COR CA(FOR HYPOALB) 9.2 mg/dL (8.5-10.1); GLUCOSE 77 mg/dL (65-99); POTASSIUM 3.1 mmol/L (3.5-5.1); SODIUM 145 mmol/L (136-145); TOTAL PROTEIN 5.4 g/dL (6.4-8.2); eGFR NON BLACK RACES > 60 (>60)
[2023-08-05] MEDS: NS 250 ML IV 25 ML IV PRN (05:57)
--- NOTE | 2023-08-05 06:11 | EKG ---
Test Reason : CHANGE IN EKG Blood Pressure : */* mmHG Vent. Rate : 90 BPM Atrial Rate : 90 BPM P-R Int : 150 ms QRS Dur : 102 ms QT Int : 368 ms P-R-T Axes : 0 -27 30 degrees QTc Int : 450 ms Normal sinus rhythm Minimal voltage criteria for LVH, may be normal variant ( Capo product ) Nonspecific ST and T wave abnormality Abnormal ECG When compared with ECG of 04-AUG-2023 18:39, (Unconfirmed) premature atrial complexes are no longer present ST no longer elevated in Anterior leads Nonspecific T wave abnormality, improved in Inferior leads Confirmed by Robbi Irizarry MD ([id number]) on 08/05/2023 6:13:07 AM Referred By: Confirmed By: Robbi Irizarry MD
[2023-08-05 06:26] LABS: BAND NEUTROPHILS % 1 % (0-10); PLATELET MORPHOLOGY COMMENT NORMAL (NORMAL)
[2023-08-05] MEDS ORDERED: VIBRAMYCIN 100 MG in D5W 250 ML IV 250 ML IV SCH (09:00)
[2023-08-05] MEDS: PULMICORT NEB TX 0.5 MG NEB SCH (09:11)
[2023-08-05] MEDS: K-RIDER 10 MEQ/100 ML WATER 10 MEQ/100 ML BAG IV SCH (09:31)
[2023-08-05] MEDS: ASPIRIN EC 81 MG PO SCH (09:56)
[2023-08-05] MEDS: BOSUTINIB 400 MG PO SCH (09:56)
[2023-08-05] MEDS: TADALAFIL 5 MG PO SCH (09:57)
[2023-08-05] MEDS: SYNTHROID 25 mcg TAB PO SCH (09:57)
[2023-08-05] MEDS: WELLBUTRIN XL 300 MG (DAILY) PO SCH (09:57)
[2023-08-05] MEDS: SINGULAIR TAB 10 MG PO SCH (09:57)
[2023-08-05] MEDS: PATIENT'S HOME MEDICATION (Prasugrel 10 mg tablet) PO SCH (09:57)
[2023-08-05] MEDS: MEGACE PO SCH (09:57)
[2023-08-05] MEDS: DILAUDID INJ IVP PRN (10:13)
--- NOTE | 2023-08-05 10:58 | RAD ---
EXAM: KUB HISTORY: Follow-up pneumoperitoneum COMPARISON: CT abdomen pelvis 08/04/2023 FINDINGS: There is a persistent very large pneumoperitoneum present. There is a gastrostomy tube present. P recise location of the gastrostomy tube tip can not be determined without contrast. Review of the CT 08/04/2023 confirmed that at that time it was intraluminal within the stomach. Unless the patient h as had recent manipulation of the gastrostomy tube, pneumoperitoneum is likely due to perforated mihaela ow viscus. IMPRESSION: Large pneumoperitoneum which, in the absence of recent surgery, manipulation of the patient's gastro stomy tube or peritoneal dialysis is likely due to a perforated viscus. THIS IS AN ELECTRONICALLY VERIFIED FINAL REPORT 08/05/2023 10:55 AM - Electronically signed by Rajeev Clark MD
[2023-08-05] MEDS: VIBRAMYCIN 100 MG in D5W 250 ML IV 250 ML IV SCH (11:51)
[2023-08-05] MEDS: LOVENOX INJ 40 MG SYR SC SCH (11:58)
--- NOTE | 2023-08-05 12:06 | EKG ---
Test Reason : Blood Pressure : */* mmHG Vent. Rate : 86 BPM Atrial Rate : 86 BPM P-R Int : 152 ms QRS Dur : 100 ms QT Int : 384 ms P-R-T Axes : 44 -36 28 degrees QTc Int : 459 ms Normal sinus rhythm Left axis deviation Minimal voltage criteria for LVH, may be normal variant ( [place] product ) Abnormal ECG When compared with ECG of 05-AUG-2023 05:54, ST no longer depressed in Lateral leads Nonspecific T wave abnormality no longer evident in Lateral leads Confirmed by Robbi Irizarry MD ([id number]) on 08/05/2023 1:58:52 PM Referred By: Confirmed By: Robbi Irizarry MD
--- NOTE | 2023-08-05 15:02 | CT ---
EXAM:ABDCMEN/PELVIS WITH CONHISTORY:PneumoperitoneumTECHNIQUE:Axi al postcontrast images with coronal and sagittal reformats. Dose reduction procedures were used with mA/kv adjusted for body size.COMPARISON:08/04/2023 CT abdomen pelvis without contrastFINDINGS:Relatively severe bibasilar chronic appearing interstitial lung disease is identified likely fibrosis. There is a moderately large amount of subcutaneous emphysema in the left flank and extending anteriorly in the chest and posteriorly into the back. There redemonstrated is a massive pneumoperitoneum unchanged from the prior examination. In the absence of recent abdominal surgery, PEG tube insertion or manipulation, or peritoneal dialysis this is indicative of a perforated viscus. Precise site of the perforation is unclear. There are multiple small bubbles of intraperitoneal air in the area of the splenic flexure possibly suggestive of a colonic perforation. Water-soluble contrast has transited nearly to the terminal ileum and there is no extravasation from the stomach, duodenal, or small bowel. Liver, spleen, and adrenal glands and pancreas appear within normal limits. Patient is status post cholecystectomy. kidneys are unobstructed and without stones or masses. No ureteral calculi are identified. Appendix is not identified. There are no secondary signs of appendicitis present. Calcific atherosclerotic changes present in the nondilated abdominal aorta. No intraperitoneal or retroperitoneal lymphadenopathy of significance is identified. There are no findings suggestive of enteritis, colitis, or diverticulitis. No pelvic masses, pelvic fluid, or pelvic lymphadenopathy is identified. The bladder is drained by a Swenson catheter. No lytic or blastic skeletal lesion of significance is identified.IMPRESSION:Persistent massive pneumoperitoneum which in the absence of recent surgery, PEG tube placement or manipulation or peritoneal dialysis is indicative of a perforated viscus. There is no leak of gastrointestinal contrast from the stomach or small bowel. Cluster of air bubbles near the splenic flexure could indicate a splenic flexure site of perforation. Immediate surgical evaluation requiredSubcutaneous emphysema in the left flank as described above unchangedDiffuse severe chronic interstitial lung changes in the lung bases bilaterally.THIS IS AN ELECTRONICALLY VERIFIED FINAL REPORT08/05/2023 2:58 PM - Electronically signed by Rajeev Clark MD
--- NOTE | 2023-08-05 17:56 | EKG ---
Test Reason : CHANGE IN EKG Blood Pressure : */* mmHG Vent. Rate : 92 BPM Atrial Rate : 92 BPM P-R Int : 160 ms QRS Dur : 96 ms QT Int : 392 ms P-R-T Axes : 58 -47 43 degrees QTc Int : 484 ms Sinus rhythm with premature atrial complexes Left axis deviation Minimal voltage criteria for LVH, may be normal variant ( Capo product ) Nonspecific ST abnormality Abnormal ECG When compared with ECG of 05-AUG-2023 11:49, premature atrial complexes are now present Confirmed by Robbi Irizarry MD ([id number]) on 08/06/2023 7:48:43 AM Referred By: Confirmed By: Robbi Irizarry MD
--- NOTE | 2023-08-05 18:06 | DR.PROGNOT ---
HOSPITAL PROGRESS NOTE Progress Note for Day of: Progress Note Date: 08/05/23 Chief Complaint Chief Complaint: Patient is complaining of moderate abdominal pain more towards the left upper quadrant and mid abdomen, no nausea or vomiting, no fever.. Fair urine output. Gastrostomy tube in place. Abdominal CT showed large amount of free air in the abdomen without clear evide nce of the source of the perforation. We discussed that with the radiologist, repeated abdominal CT scan with oral contrast. Showed possible air leak around the splenic flexure of the colon. No evidence of acute diverticulitis, appendicitis, or gastric leak from the PEG tube. White count is still elevated but the patient is afebrile with normal liver function test as well as BUN and creatinine. Past Medical Family Social History Past Med/Fam/Surg Hx: No changes since H&P Allergies: Allergies No Known Allergies Allergy (Verified 08/04/23 18:28) Vital Signs Vital Signs: Vital Signs Temperature 97.9 F Temperature 98.1 F Temperature 98.1 F Pulse Rate [Left Brachial] 98 Pulse Rate [Left Brachial] 92 Pulse Rate [Left Brachial] 90 Pulse Rate [Left Brachial] 90 Pulse Rate [Left Brachial] 94 Pulse Rate 86 Respiratory Rate 28 Respiratory Rate 28 Respiratory Rate 30 Respiratory Rate 30 Respiratory Rate 26 Respiratory Rate 28 Blood Pressure [Right Arm] 108/78 Blood Pressure [Right Arm] 106/68 Blood Pressure [Right Arm] 108/78 Blood Pressure [Right Arm] 108/78 Blood Pressure [Right Arm] 115/65 O2 Sat by Pulse Oximetry 95 O2 Sat by Pulse Oximetry 100 O2 Sat by Pulse Oximetry 100 O2 Sat by Pulse Oximetry 97 O2 Sat by Pulse Oximetry 97 O2 Sat by Pulse Oximetry 96 Physical Exam Oriented: Normal Eyes: Normal Ear: Normal Nose: Normal Respiratory: Normal Cardiovascular: Normal GI:Auscultation: Decreased GI:Palpation: Other (Soft with moderate distention and hypoactive bowel sounds. Mild rebound tenderness in the mid abdomen.) Speech Pattern: Clear and Unclear Laboratory and Diagnostics 08/05/23 04:20 08/05/23 04:20 Labs: Laboratory WBC 20.4 X10^3/uL (3.6-10.0) H 08/05/23 04:20 RBC 3.32 X10^6/uL (4.7-6.0) L 08/05/23 04:20 Hgb 9.9 g/dL (13.5-18.0) L 08/05/23 04:20 Hct 30.0 % (42.0-54.0) L 08/05/23 04:20 MCV 90.6 fL (80.0-100.0) 08/05/23 04:20 MCH 29.8 pg (27.0-34.0) 08/05/23 04:20 MCHC 32.9 g/dL (33.0-35.0) L 08/05/23 04:20 RDW 16.5 % (11.6-16.5) 08/05/23 04:20 Plt Count 321 X10^3/uL (150.0-450.0) 08/05/23 04:20 Plt Count Comment Adequate (ADEQUATE) 08/05/23 04:20 MPV 9.6 fL (7.4-11.0) 08/05/23 04:20 Neut % (Auto) 86.1 % (42.0-75.0) H 08/05/23 04:20 Lymph % (Auto) 4.4 % (21.0-51.0) L 08/05/23 04:20 [place]ine % (Auto) 7.6 % (0.0-13.0) 08/05/23 04:20 Eos % (Auto) 1.4 % (0.9-2.9) 08/05/23 04:20 Baso % (Auto) 0.5 % (0.2-1.0) 08/05/23 04:20 Neut # (Auto) 17.6 x10^3/uL (2.2-4.8) H 08/05/23 04:20 Lymph # (Auto) 0.9 X10^3/uL (1.3-2.9) L 08/05/23 04:20 [place] # (Auto) 1.6 x10^3/uL (0.3-0.8) H 08/05/23 04:20 Eos # (Auto) 0.3 x10^3/uL (0.0-0.2) H 08/05/23 04:20 Baso # (Auto) 0.1 X10^3/uL (0.0-0.1) 08/05/23 04:20 Absolute Nucleated RBC 0.0 /100WBC 08/05/23 04:20 Total Counted 100 08/05/23 04:20 Neutrophils % (Manual) 91 % (39-76) H 08/05/23 04:20 Band Neutrophils % 1 % (0-10) 08/05/23 04:20 Lymphocytes % (Manual) 6 % (13-43) L 08/05/23 04:20 Monocytes % (Manual) 2 % (4-9) L 08/05/23 04:20 Eosinophils % (Manual) 1 % (0-6) 08/04/23 18:55 Plt Morphology Comment Normal (NORMAL) 08/05/23 04:20 RBC Morphology Normal (NORMAL) 08/05/23 04:20 Anisocytosis Slight A 08/04/23 18:55 PT 13.7 SECONDS (11.8-14.3) 08/04/23 18:55 INR Target Range - 08/04/23 18:55 INR 1.07 (0.8-1.3) 08/04/23 18:55 APTT 33.3 SECONDS (22.9-36.5) 08/04/23 18:55 PTT Comment - 08/04/23 18:55 D-Dimer 1.31 ug/ml (0.0-0.57) H 08/04/23 18:55 Sample Site Rra 08/04/23 18:36 ABG pH 7.530 (7.35-7.45) H 08/04/23 18:36 ABG pCO2 31.0 mmHg (35.0-45.0) L 08/04/23 18:36 ABG pO2 52.0 mmHg (80.0-100.0) L 08/04/23 18:36 ABG HCO3 25.9 mmol/L (22-26) 08/04/23 18:36 ABG O2 Saturation 90.0 % (90-100) 08/04/23 18:36 ABG Base Excess 3.6 mmol/L (-2.0-2.0) H 08/04/23 18:36 Cyrus Test Pos 08/04/23 18:36 A-a Gradient 166.0 mmHg 08/04/23 18:36 FiO2 36.0 08/04/23 18:36 Blood Gas Comments Pt kenney well eb 08/04/23 18:36 Sodium 145 mmol/L (136-145) 08/05/23 04:20 Corrected Sodium TNP 08/05/23 04:20 Potassium 3.1 mmol/L (3.5-5.1) L 08/05/23 04:20 Chloride 109 mmol/L (98-107) H 08/05/23 04:20 Carbon Dioxide 27.9 mmol/L (21-32) 08/05/23 04:20 BUN 16 mg/dL (7-18) 08/05/23 04:20 Creatinine 0.70 mg/dL (0.70-1.30) 08/05/23 04:20 Est GFR (MDRD) Af Amer > 60 (>60) 08/05/23 04:20 Est GFR (MDRD) Non-Af > 60 (>60) 08/05/23 04:20 Glucose 77 mg/dL (65-99) 08/05/23 04:20 Lactic Acid 1.1 mmol/L (0.4-2.0) 08/05/23 11:14 Calcium 7.7 mg/dL (8.5-10.1) L 08/05/23 04:20 Corrected Calcium 9.2 mg/dL (8.5-10.1) 08/05/23 04:20 Magnesium 3.4 mg/dL (2.0-2.9) H 08/05/23 04:20 Total Bilirubin 0.70 mg/dL (0.2-1.0) 08/05/23 04:20 AST 34 Units/L (15-37) 08/05/23 04:20 ALT 101 Units/L (12-78) H 08/05/23 04:20 Alkaline Phosphatase 71 Units/L (46-116) 08/05/23 04:20 Creatine Kinase 97 Units/L (39-308) 08/05/23 04:20 Troponin I High Sens 13.8 ng/L (4.0-60.0) 08/05/23 12:02 B-Natriuretic Peptide 194 pg/mL (0-79) H 08/04/23 18:55 Total Protein 5.4 g/dL (6.4-8.2) L 08/05/23 04:20 Albumin 2.1 g/dL (3.4-5.0) L 08/05/23 04:20 Globulin 3.3 g/dL (2.5-4.5) 08/05/23 04:20 Albumin/Globulin Ratio 0.6 Ratio (1.1-2.1) L 08/05/23 04:20 Specimen Type Catherized urine 08/05/23 00: Urine Color Dark yellow (YELLOW) 08/05/23 00: Urine Appearance Clear (CLEAR) 08/05/23: Urine pH 8.0 (5.0 - 8.0) 08/05/23: Ur Specific [place] 1.015 (1.000-1.030) 08/05/23 00: Urine Protein 2+ (NEGATIVE) 08/05/23: Urine Glucose (UA) Negative (NEGATIVE) 08/05/23: Urine Ketones 1+ (NEGATIVE) 08/05/23 Urine Blood 1+ (NEGATIVE) 08/05/23: Urine Nitrite Negative (NEGATIVE) 08/05/23: Urine Bilirubin 1+ (NEGATIVE) 08/05/23: Urine Urobilinogen 4+ (NORMAL) 08/05/23: Ur Leukocyte Esterase Negative (NEGATIVE) 08/05/23: Urine RBC 0-2 /HPF (0-3) 08/05/23: Urine WBC 0-2 /HPF (0-5) 08/05/23: Ur Squamous Epith Cells Rare /HPF (NEGATIVE) 08/05/23: Amorphous Sediment 1+ /HPF (NEGATIVE) 08/05/23: Urine Bacteria Trace /HPF (NEGATIVE) 08/05/23 Ur Culture Indicated? No/not indicated 08/05/23 Assessment and Plan 1: Perforated viscus with free air. Seems to be sealed perforation. Discussed the situation in details with the patient and his family will proceed with laparotomy in the morning, possible bowel resection and possible colostomy. On IV antibiotics and IV fluid, Will place PICC line and start him on nutritional support. 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 3: COPD. Problem Patient Problems: Patient Problems (Updated 08/05/23 @ 00:02 by Emilee Smith) Pneumoperitoneum (Acute) K66.8 Leukocytosis (Acute) D72.829 Acute hypokalemia (Acute) E87.6 Pulmonary edema (Acute) J81.1 Bilateral pneumonia (Acute) J18.9
--- NOTE | 2023-08-05 19:27 | DR.H&P ---
H&P History & Physical for Day of: H&P Date: 08/05/23 Chief Complaint Chief Complaint: abdominal pain Allergies Allergies Allergy/AdvReac Type Severity Reaction Status Date / Time No Known Allergies Allergy Verified 08/04/23 18:28 History of Present Illness History of Present Illness: Mr Olivera is a 68y/o male with a PMH of severe emphysema/ILD, CAD, COPD, CHF, CML presented with worsening abdominal pain. Patient was discharged on 08/02/23 after being admitted for PEG tube placement and COPD exacerbation. Patient started having worsening abdominal pain and distension. He has not had a BM in days. He was given different stool softners and laxatives with no improvement so patient came to the ER. Work-up showed elevated WBC, CTAP showed severe pneumoperitoneum concerning for perforation. CTA-chest was done due to elevated d-dimer, negative for PE. He was started on IVF and antibiotics. Dr Allen was called and accepted patient for admission and further management. His abdominal pain is slightly better this morning, less distended. Denies N/V or diarrhea. He remains on 3L NC. Repeat lactic acid and troponin were negative. Labs/imaging reviewed -WBC 20.4 Hgb: 9.9 K:3.1 -CTAP reviewed: Most likely area of bowel perforation is in the left upper quadrant of the abdomen. Colonic source is favored over gastric source of perforation. Plan: follow surgery recommendations, continue IVF and antibiotics. Continue pain control. Dr Allen ordered repeat CTAP. Continue NPO status. Continue O2, wean as tolerated. Continue bronchodilators. Replace electrolytes as per protocol. Monitor AM labs/imaging. Discussed treatment plan with family in detail, all questions and concerns answered. Time spent for clinical assessment, reviewing labs/imaging, physical exam, decision making and documentation greater than 45 mins. Past Medical History Past Medical History: Anemia, Anxiety, CHF, COPD, Coronary Artery Disease, Depression, Dyslipidemia, GERD, Hypertension, Hypothyroidism and PUD Past Surgical History Surgical History: Abdominal Surgery, Angioplasty/Stents, Appendectomy, Cholecystectomy and Ortho Surgery Family History Family Medical History: Cancer and Coronary Artery Disease Social History Does patient currently use any type of tobacco product: No Have you used tobacco products in the last 12 months: No Type of Tobacco Use: None Does any household member use tobacco: No Alcohol Use: None Drug Use: None Medications Home Medications: Home Medications Medication Instructions Recorded Confirmed Type albuterol sulfate 2.5 mg/3 mL 3 ml inhalation Q6H PRN Wheezing 05/18/22 08/04/23 History (0.083 %) solution for nebulization atorvastatin 40 mg tablet 40 mg PO QHS 05/18/22 08/04/23 History bupropion HCl 300 mg 24 hr tablet, 300 mg PO QDAY 05/18/22 08/04/23 History extended release fluticasone fur. 100 mcg-umeclid 1 puff inhalation QDAY 05/18/22 08/04/23 History 62.5 mcg-vilant 25 mcg inhalat.powder (Trelegy Ellipta) levothyroxine 25 mcg tablet 25 mcg PO QDAY 05/18/22 08/04/23 History metoprolol succinate 25 mg 25 mg PO QHS 05/18/22 08/04/23 History tablet,extended release 24 hr montelukast 10 mg tablet 10 mg PO QDAY 05/18/22 08/04/23 History tadalafil 5 mg tablet 5 mg PO QDAY 05/18/22 08/04/23 History megestrol 40 mg tablet 40 mg PO BID 04/30/23 08/04/23 History famotidine 40 mg tablet 40 mg PO BID 06/09/23 08/04/23 History prasugrel 10 mg tablet 10 mg PO QDAY 06/09/23 08/04/23 History temazepam 15 mg capsule 15 mg PO QPM PRN 06/09/23 08/04/23 History bosutinib 400 mg tablet (Bosulif) 400 mg PO DAILY 07/28/23 08/04/23 History cetirizine 10 mg tablet (Zyrtec) 10 mg PO DAILY 07/28/23 08/04/23 History cyclobenzaprine 10 mg tablet 10 mg PO TID PRN Muscle Spasm 07/28/23 08/04/23 History aspirin 81 mg tablet,delayed 81 mg PO QDAY 08/04/23 08/04/23 History release Labs 08/05/23 04:20 08/05/23 04:20 Labs: Laboratory WBC 20.4 X10^3/uL (3.6-10.0) H 08/05/23 04:20 RBC 3.32 X10^6/uL (4.7-6.0) L 08/05/23 04:20 Hgb 9.9 g/dL (13.5-18.0) L 08/05/23 04:20 Hct 30.0 % (42.0-54.0) L 08/05/23 04:20 MCV 90.6 fL (80.0-100.0) 08/05/23 04:20 MCH 29.8 pg (27.0-34.0) 08/05/23 04:20 MCHC 32.9 g/dL (33.0-35.0) L 08/05/23 04:20 RDW 16.5 % (11.6-16.5) 08/05/23 04:20 Plt Count 321 X10^3/uL (150.0-450.0) 08/05/23 04:20 Plt Count Comment Adequate (ADEQUATE) 08/05/23 04:20 MPV 9.6 fL (7.4-11.0) 08/05/23 04:20 Neut % (Auto) 86.1 % (42.0-75.0) H 08/05/23 04:20 Lymph % (Auto) 4.4 % (21.0-51.0) L 08/05/23 04:20 [place] % (Auto) 7.6 % (0.0-13.0) 08/05/23 04:20 Eos % (Auto) 1.4 % (0.9-2.9) 08/05/23 04:20 Baso % (Auto) 0.5 % (0.2-1.0) 08/05/23 04:20 Neut # (Auto) 17.6 x10^3/uL (2.2-4.8) H 08/05/23 04:20 Lymph # (Auto) 0.9 X10^3/uL (1.3-2.9) L 08/05/23 04:20 [place] # (Auto) 1.6 x10^3/uL (0.3-0.8) H 08/05/23 04:20 Eos # (Auto) 0.3 x10^3/uL (0.0-0.2) H 08/05/23 04:20 Baso # (Auto) 0.1 X10^3/uL (0.0-0.1) 08/05/23 04:20 Absolute Nucleated RBC 0.0 /100WBC 08/05/23 04:20 Total Counted 100 08/05/23 04:20 Neutrophils % (Manual) 91 % (39-76) H 08/05/23 04:20 Band Neutrophils % 1 % (0-10) 08/05/23 04:20 Lymphocytes % (Manual) 6 % (13-43) L 08/05/23 04:20 Monocytes % (Manual) 2 % (4-9) L 08/05/23 04:20 Eosinophils % (Manual) 1 % (0-6) 08/04/23 18:55 Plt Morphology Comment Normal (NORMAL) 08/05/23 04:20 RBC Morphology Normal (NORMAL) 08/05/23 04:20 Anisocytosis Slight A 08/04/23 18:55 PT 13.7 SECONDS (11.8-14.3) 08/04/23 18:55 INR Target Range - 08/04/23 18:55 INR 1.07 (0.8-1.3) 08/04/23 18:55 APTT 33.3 SECONDS (22.9-36.5) 08/04/23 18:55 PTT Comment - 08/04/23 18:55 D-Dimer 1.31 ug/ml (0.0-0.57) H 08/04/23 18:55 Sample Site Rra 08/04/23 18:36 ABG pH 7.530 (7.35-7.45) H 08/04/23 18:36 ABG pCO2 31.0 mmHg (35.0-45.0) L 08/04/23 18:36 ABG pO2 52.0 mmHg (80.0-100.0) L 08/04/23 18:36 ABG HCO3 25.9 mmol/L (22-26) 08/04/23 18:36 ABG O2 Saturation 90.0 % (90-100) 08/04/23 18:36 ABG Base Excess 3.6 mmol/L (-2.0-2.0) H 08/04/23 18:36 Cyrus Test Pos 08/04/23 18:36 A-a Gradient 166.0 mmHg 08/04/23 18:36 FiO2 36.0 08/04/23 18:36 Blood Gas Comments Pt kenney well eb 08/04/23 18:36 Sodium 145 mmol/L (136-145) 08/05/23 04:20 Corrected Sodium TNP 08/05/23 04:20 Potassium 3.1 mmol/L (3.5-5.1) L 08/05/23 04:20 Chloride 109 mmol/L (98-107) H 08/05/23 04:20 Carbon Dioxide 27.9 mmol/L (21-32) 08/05/23 04:20 BUN 16 mg/dL (7-18) 08/05/23 04:20 Creatinine 0.70 mg/dL (0.70-1.30) 08/05/23 04:20 Est GFR (MDRD) Af Amer > 60 (>60) 08/05/23 04:20 Est GFR (MDRD) Non-Af > 60 (>60) 08/05/23 04:20 Glucose 77 mg/dL (65-99) 08/05/23 04:20 Lactic Acid 1.1 mmol/L (0.4-2.0) 08/05/23 11:14 Calcium 7.7 mg/dL (8.5-10.1) L 08/05/23 04:20 Corrected Calcium 9.2 mg/dL (8.5-10.1) 08/05/23 04:20 Magnesium 3.4 mg/dL (2.0-2.9) H 08/05/23 04:20 Total Bilirubin 0.70 mg/dL (0.2-1.0) 08/05/23 04:20 AST 34 Units/L (15-37) 08/05/23 04:20 ALT 101 Units/L (12-78) H 08/05/23 04:20 Alkaline Phosphatase 71 Units/L (46-116) 08/05/23 04:20 Creatine Kinase 97 Units/L (39-308) 08/05/23 04:20 Troponin I High Sens 12.7 ng/L (4.0-60.0) 08/05/23 17:59 B-Natriuretic Peptide 194 pg/mL (0-79) H 08/04/23 18:55 Total Protein 5.4 g/dL (6.4-8.2) L 08/05/23 04:20 Albumin 2.1 g/dL (3.4-5.0) L 08/05/23 04:20 Globulin 3.3 g/dL (2.5-4.5) 08/05/23 04:20 Albumin/Globulin Ratio 0.6 Ratio (1.1-2.1) L 08/05/23 04:20 Specimen Type Catherized urine 08/05/23 00:28 Urine Color Dark yellow (YELLOW) 08/05/23 00: Urine Appearance Clear (CLEAR) 08/05/23 00: Urine pH 8.0 (5.0 - 8.0) 08/05/23 00: Ur Specific [place] 1.015 (1.000-1.030) 08/05/23 00: Urine Protein 2+ (NEGATIVE) 08/05/23 00: Urine Glucose (UA) Negative (NEGATIVE) 08/05/23: Urine Ketones 1+ (NEGATIVE) 08/05/23 00: Urine Blood 1+ (NEGATIVE) 08/05/23 00: Urine Nitrite Negative (NEGATIVE) 08/05/23: Urine Bilirubin 1+ (NEGATIVE) 08/05/23 00: Urine Urobilinogen 4+ (NORMAL) 08/05/23 00: Ur Leukocyte Esterase Negative (NEGATIVE) 08/05/23 00: Urine RBC 0-2 /HPF (0-3) 08/05/23: Urine WBC 0-2 /HPF (0-5) 08/05/23: Ur Squamous Epith Cells Rare /HPF (NEGATIVE) 08/05/23: Amorphous Sediment 1+ /HPF (NEGATIVE) 08/05/23 00: Urine Bacteria Trace /HPF (NEGATIVE) 08/05/23 00: Ur Culture Indicated? No/not indicated 08/05/23 00:28 Review of Systems Constitutional: Weakness Eyes: No Symptoms Reported Respiratory: Shortness of Breath Cardiovascular: No Symptoms Reported Gastrointestinal: Abdominal Pain and Constipation Musculoskeletal: No Symptoms Reported Skin: No Symptoms Reported Neurological: No Symptoms Reported Physical Exam Vital Signs: Vital Signs Temperature 97.9 F Temperature 98.1 F Temperature 98.1 F Pulse Rate [Left Brachial] 98 Pulse Rate [Left Brachial] 92 Pulse Rate [Left Brachial] 90 Pulse Rate [Left Brachial] 90 Pulse Rate 86 Respiratory Rate 28 Respiratory Rate 28 Respiratory Rate 30 Respiratory Rate 30 Blood Pressure [Right Arm] 108/78 Blood Pressure [Right Arm] 106/68 Blood Pressure [Right Arm] 108/78 Blood Pressure [Right Arm] 108/78 O2 Sat by Pulse Oximetry 95 O2 Sat by Pulse Oximetry 100 O2 Sat by Pulse Oximetry 100 O2 Sat by Pulse Oximetry 97 O2 Sat by Pulse Oximetry 97 Oriented: Normal Eyes: Normal Nose: Normal Throat: Normal Respiratory: Diminished Throughout, RLL Rales and LLL Rales Cardiovascular: Normal Auscultation: Bowel Sounds: Decreased Tenderness: LLQ, Epigastric, Periumbilical and Moderate Musculoskeletal: Normal Psychiatric: Normal Mood Description: Calm Affect: Normal Speech Pattern: Clear and Appropriate Assessment/Plan (1) Pneumoperitoneum: Status: Acute (2) Acute hypokalemia: Status: Acute (3) Pulmonary edema: Qualifiers: Chronicity: acute Qualified Code(s): J81.0 - Acute pulmonary edema Status: Acute (4) Anemia: Qualifiers: Anemia type: unspecified type Qualified Code(s): D64.9 - Anemia, unspecified Status: Acute (5) Leukemia: Qualifiers: 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
[2023-08-05] MEDS: TOPROL XL PO SCH (21:29)
[2023-08-05] MEDS: LIPITOR TAB 40 MG PO SCH (21:29)
[2023-08-06 04:50] LABS: BASOPHILS # (AUTO) 0.1 X10^3/uL (0.0-0.1); HEMOGLOBIN 9.1 g/dL (13.5-18.0); LYMPHOCYTES # (AUTO) 0.8 X10^3/uL (1.3-2.9)
[2023-08-06 05:02] LABS: ALANINE AMINOTRANSFERASE 80 Units/L (12-78); ALBUMIN 2.1 g/dL (3.4-5.0); ALKALINE PHOSPHATASE 68 Units/L (46-116); ASPARTATE AMINO TRANSFERASE 37 Units/L (15-37); BLOOD UREA NITROGEN 15 mg/dL (7-18); CALCIUM 7.6 mg/dL (8.5-10.1); CHLORIDE 109 mmol/L (98-107); COR CA(FOR HYPOALB) 9.1 mg/dL (8.5-10.1); CREATININE 0.67 mg/dL (0.70-1.30); GLUCOSE 68 mg/dL (65-99); MAGNESIUM 2.8 mg/dL (2.0-2.9); POTASSIUM 4.1 mmol/L (3.5-5.1); SODIUM 144 mmol/L (136-145); eGFR NON BLACK RACES > 60 (>60)
[2023-08-06 05:09] LABS: BASOPHILS % (AUTO) 0.7 % (0.2-1.0); EOSINOPHILS # (AUTO) 0.4 x10^3/uL (0.0-0.2); EOSINOPHILS % (AUTO) 2.4 % (0.9-2.9); HEMATOCRIT 27.9 % (42.0-54.0); LYMPHOCYTES % (AUTO) 5.2 % (21.0-51.0); MEAN CORPUSCULAR HEMOGLOBIN 29.8 pg (27.0-34.0); MEAN CORPUSCULAR HGB CONC 32.5 g/dL (33.0-35.0); MEAN CORPUSCULAR VOLUME 91.7 fL (80.0-100.0); MEAN PLATELET VOLUME 9.6 fL (7.4-11.0); MONOCYTES # (AUTO) 1.3 x10^3/uL (0.3-0.8); MONOCYTES % (AUTO) 8.5 % (0.0-13.0); NEUTROPHILS # (AUTO) 12.6 x10^3/uL (2.2-4.8); NEUTROPHILS % (AUTO) 83.2 % (42.0-75.0); PLATELET COUNT 302 X10^3/uL (150.0-450.0); RED BLOOD COUNT 3.04 X10^6/uL (4.7-6.0); RED CELL DISTRIBUTION WIDTH 16.6 % (11.6-16.5); WHITE BLOOD COUNT 15.1 X10^3/uL (3.6-10.0)
[2023-08-06] MEDS: HIBICLENS WASH EXT PRN (05:38)
[2023-08-06 06:01] LABS: BAND NEUTROPHILS % 1 % (0-10); PLATELET MORPHOLOGY COMMENT NORMAL (NORMAL)
[2023-08-06] MEDS ORDERED: DILAUDID INJ IVP PRN (07:27)
[2023-08-06] MEDS ORDERED: BARHEMSYS INJ IVP PRN (07:27)
[2023-08-06] MEDS ORDERED: ZOFRAN INJ 4 MG VIAL IVP PRN (07:27)
[2023-08-06] MEDS ORDERED: BENADRYL INJ 50 MG VIAL IVP PRN (07:27)
[2023-08-06] MEDS ORDERED: REGLAN INJ 10 MG VIAL IVP PRN (07:27)
[2023-08-06] MEDS: BRIDION ONE (07:43)
[2023-08-06] MEDS: PEPCID 20 MG VIAL ONE (07:43)
[2023-08-06] MEDS: LR 1,000 ML IV 1,000 ML IV ONE (07:43)
[2023-08-06] MEDS: VERSED ONE (07:43)
[2023-08-06] MEDS: DIPRIVAN VIAL 20 ML ONE (07:43)
[2023-08-06] MEDS ORDERED: SUPRANE ONE (07:43)
[2023-08-06] MEDS: FENTANYL VIAL INJ 250 mcg ONE (07:43)
[2023-08-06] MEDS: QUELICIN (OR ANECTINE) ONE (07:43)
[2023-08-06] MEDS: ZEMURON 100 MG VIAL ONE (07:43)
[2023-08-06] MEDS: POLYMYXIN B SULFATE ONE (08:05)
[2023-08-06] MEDS: EPHEDRINE SULFATE INJ ONE (08:06)
[2023-08-06] MEDS: NOZIN NASAL SANITIZER TP ONE (08:20)
[2023-08-06] MEDS: OFIRMEV IV 1000 MG VIAL 1,000 MG/100 ML VIAL IV ONE (08:32)
[2023-08-06] MEDS: MORPHINE SULFATE INJ 2 MG INJ IVP PRN (11:46)
[2023-08-06 20:35] VITALS: BMI 20.3
[2023-08-07 05:33] LABS: BASOPHILS # (AUTO) 0.1 X10^3/uL (0.0-0.1); BASOPHILS % (AUTO) 0.4 % (0.2-1.0); EOSINOPHILS # (AUTO) 0.3 x10^3/uL (0.0-0.2); EOSINOPHILS % (AUTO) 2.6 % (0.9-2.9); HEMATOCRIT 25.9 % (42.0-54.0); HEMOGLOBIN 8.5 g/dL (13.5-18.0); LYMPHOCYTES # (AUTO) 0.6 X10^3/uL (1.3-2.9); MEAN CORPUSCULAR HGB CONC 32.7 g/dL (33.0-35.0); MEAN CORPUSCULAR VOLUME 91.5 fL (80.0-100.0); MEAN PLATELET VOLUME 9.3 fL (7.4-11.0); MONOCYTES # (AUTO) 0.9 x10^3/uL (0.3-0.8); MONOCYTES % (AUTO) 7.3 % (0.0-13.0); NEUTROPHILS # (AUTO) 10.9 x10^3/uL (2.2-4.8); NEUTROPHILS % (AUTO) 84.7 % (42.0-75.0); PLATELET COUNT 303 X10^3/uL (150.0-450.0); RED BLOOD COUNT 2.83 X10^6/uL (4.7-6.0); RED CELL DISTRIBUTION WIDTH 16.6 % (11.6-16.5); WHITE BLOOD COUNT 12.9 X10^3/uL (3.6-10.0)
[2023-08-07 05:39] LABS: ALANINE AMINOTRANSFERASE 63 Units/L (12-78); ALBUMIN 1.9 g/dL (3.4-5.0); ALKALINE PHOSPHATASE 67 Units/L (46-116); ASPARTATE AMINO TRANSFERASE 31 Units/L (15-37); BLOOD UREA NITROGEN 11 mg/dL (7-18); CALCIUM 7.5 mg/dL (8.5-10.1); CHLORIDE 106 mmol/L (98-107); COR CA(FOR HYPOALB) 9.2 mg/dL (8.5-10.1); CREATININE 0.58 mg/dL (0.70-1.30); GLUCOSE 59 mg/dL (65-99); POTASSIUM 3.6 mmol/L (3.5-5.1); SODIUM 140 mmol/L (136-145); TOTAL PROTEIN 4.8 g/dL (6.4-8.2); eGFR NON BLACK RACES > 60 (>60)
[2023-08-07] MEDS: HIBICLENS WASH ONE (07:00)
[2023-08-07] MEDS: READI-CAT 2 ONE (07:00)
[2023-08-07] MEDS: OMNIPAQUE 350 mg/mL 100 mL BTL 100 ML ONE (07:01)
[2023-08-07] MEDS: BACTROBAN TOPICAL OINT ONE (07:01)
[2023-08-07] MEDS: ATIVAN INJ 2 MG VIAL IVP PRN (07:43)
--- NOTE | 2023-08-07 08:32 | PCM.PROG ---
Progress Note Progress Note for Day of Date of Exam: 08/06/23 Subjective Subjective: Patient will be going to the OR this morning for ex-lap. No acute events overnight, patient's vitals have been stable. Labs and imaging reviewed. Labs/imaging -WBC 15.1 Hgb: 9.1 -CTAP reviewed Plan: will follow up on patient after surgery, continue current care. Follow surgery recommendations. Continue NPO, hydration and IV antibiotics. Replace electrolytes as per protocol. Continue pain control. Monitor AM labs/imaging. Past Medical Family Social History Past Med/Fam/Surg Hx: No changes since H&P Allergies: Allergies No Known Allergies Allergy (Verified 08/04/23 18:28) Vital Signs and I&O's Vital Signs: Vital Signs Temperature 97.2 F Temperature 97.2 F Temperature 97.5 F Temperature 97.6 F Temperature 98.7 F Pulse Rate [Left Brachial] 94 Pulse Rate [Left Brachial] 86 Pulse Rate [Left Brachial] 85 Pulse Rate [Left Brachial] 89 Pulse Rate [Left Brachial] 85 Pulse Rate [Left Brachial] 87 Pulse Rate 87 Pulse Rate 85 Pulse Rate 85 Pulse Rate 87 Pulse Rate 102 Pulse Rate 94 Pulse Rate 90 Pulse Rate 73 Respiratory Rate 46 Respiratory Rate 20 Respiratory Rate 39 Respiratory Rate 38 Respiratory Rate 20 Respiratory Rate 35 Respiratory Rate 39 Respiratory Rate 20 Respiratory Rate 18 Respiratory Rate 20 Respiratory Rate 20 Respiratory Rate 20 Respiratory Rate 20 Respiratory Rate 22 Respiratory Rate 20 Respiratory Rate 20 Respiratory Rate 24 Respiratory Rate 20 Respiratory Rate 20 Blood Pressure [Right Arm] 123/67 Blood Pressure [Right Arm] 115/79 Blood Pressure [Right Arm] 122/78 Blood Pressure [Right Arm] 116/76 Blood Pressure [Right Arm] 127/82 Blood Pressure [Right Arm] 121/77 Blood Pressure 105/57 Blood Pressure 109/60 Blood Pressure 100/58 Blood Pressure 106/53 Blood Pressure 112/56 Blood Pressure 98/50 Blood Pressure 103/59 Blood Pressure 127/79 O2 Sat by Pulse Oximetry 94 O2 Sat by Pulse Oximetry 97 O2 Sat by Pulse Oximetry 97 O2 Sat by Pulse Oximetry 94 O2 Sat by Pulse Oximetry 98 O2 Sat by Pulse Oximetry 97 O2 Sat by Pulse Oximetry 94 O2 Sat by Pulse Oximetry 94 O2 Sat by Pulse Oximetry 94 O2 Sat by Pulse Oximetry 99 O2 Sat by Pulse Oximetry 99 O2 Sat by Pulse Oximetry 99 O2 Sat by Pulse Oximetry 99 O2 Sat by Pulse Oximetry 96 Intake and Output: Intake & Output 08/03/23 08/04/23 08/05/23 08/06/23 23:59 23:59 23:59 23:59 Intake Total 1747 / 1747 2475 / 2475 Output Total 1100 / 1100 1635 / 1635 Balance 647 / 647 840 / 840 Physical Exam Oriented: Normal Eyes: Normal Ear: Normal Nose: Normal Throat: Normal Respiratory: Normal Cardiovascular: Normal Auscultation: Bowel Sounds: Decreased Tenderness: LLQ, Epigastric, Periumbilical and Moderate Skin: Decreased Turgur Musculoskeletal: Normal Psychiatric: Normal Mood Description: Calm Affect: Normal Speech Pattern: Clear and Appropriate Laboratory and Diagnostics 08/07/23 04:25 08/07/23 04:25 Labs: 08/04/23 19:37 Blood Blood Culture - Preliminary 08/04/23 18:55 Blood Blood Culture - Preliminary Laboratory WBC 15.1 X10^3/uL (3.6-10.0) H 08/06/23 04:20 RBC 3.04 X10^6/uL (4.7-6.0) L 08/06/23 04:20 Hgb 9.1 g/dL (13.5-18.0) L 08/06/23 04:20 Hct 27.9 % (42.0-54.0) L 08/06/23 04:20 MCV 91.7 fL (80.0-100.0) 08/06/23 04:20 MCH 29.8 pg (27.0-34.0) 08/06/23 04:20 MCHC 32.5 g/dL (33.0-35.0) L 08/06/23 04:20 RDW 16.6 % (11.6-16.5) H 08/06/23 04:20 Plt Count 302 X10^3/uL (150.0-450.0) 08/06/23 04:20 Plt Count Comment Adequate (ADEQUATE) 08/06/23 04:20 MPV 9.6 fL (7.4-11.0) 08/06/23 04:20 Neut % (Auto) 83.2 % (42.0-75.0) H 08/06/23 04:20 Lymph % (Auto) 5.2 % (21.0-51.0) L 08/06/23 04:20 [place] % (Auto) 8.5 % (0.0-13.0) 08/06/23 04:20 Eos % (Auto) 2.4 % (0.9-2.9) 08/06/23 04:20 Baso % (Auto) 0.7 % (0.2-1.0) 08/06/23 04:20 Neut # (Auto) 12.6 x10^3/uL (2.2-4.8) H 08/06/23 04:20 Lymph # (Auto) 0.8 X10^3/uL (1.3-2.9) L 08/06/23 04:20 [place] # (Auto) 1.3 x10^3/uL (0.3-0.8) H 08/06/23 04:20 Eos # (Auto) 0.4 x10^3/uL (0.0-0.2) H 08/06/23 04:20 Baso # (Auto) 0.1 X10^3/uL (0.0-0.1) 08/06/23 04:20 Absolute Nucleated RBC 0.1 /100WBC 08/06/23 04:20 Total Counted 100 08/06/23 04:20 Neutrophils % (Manual) 84 % (39-76) H 08/06/23 04:20 Band Neutrophils % 1 % (0-10) 08/06/23 04:20 Lymphocytes % (Manual) 5 % (13-43) L 08/06/23 04:20 Monocytes % (Manual) 8 % (4-9) 08/06/23 04:20 Eosinophils % (Manual) 2 % (0-6) 08/06/23 04:20 Plt Morphology Comment Normal (NORMAL) 08/06/23 04:20 RBC Morphology Normal (NORMAL) 08/06/23 04:20 Anisocytosis Slight A 08/04/23 18:55 PT 13.7 SECONDS (11.8-14.3) 08/04/23 18:55 INR Target Range - 08/04/23 18:55 INR 1.07 (0.8-1.3) 08/04/23 18:55 APTT 33.3 SECONDS (22.9-36.5) 08/04/23 18:55 PTT Comment - 08/04/23 18:55 D-Dimer 1.31 ug/ml (0.0-0.57) H 08/04/23 18:55 Sample Site Rra 08/04/23 18:36 ABG pH 7.530 (7.35-7.45) H 08/04/23 18:36 ABG pCO2 31.0 mmHg (35.0-45.0) L 08/04/23 18:36 ABG pO2 52.0 mmHg (80.0-100.0) L 08/04/23 18:36 ABG HCO3 25.9 mmol/L (22-26) 08/04/23 18:36 ABG O2 Saturation 90.0 % (90-100) 08/04/23 18:36 ABG Base Excess 3.6 mmol/L (-2.0-2.0) H 08/04/23 18:36 Cyrus Test Pos 08/04/23 18:36 A-a Gradient 166.0 mmHg 08/04/23 18:36 FiO2 36.0 08/04/23 18:36 Blood Gas Comments Pt kenney well eb 08/04/23 18:36 Sodium 144 mmol/L (136-145) 08/06/23 04:20 Corrected Sodium TNP 08/06/23 04:20 Potassium 4.1 mmol/L (3.5-5.1) 08/06/23 04:20 Chloride 109 mmol/L (98-107) H 08/06/23 04:20 Carbon Dioxide 32.0 mmol/L (21-32) 08/06/23 04:20 BUN 15 mg/dL (7-18) 08/06/23 04:20 Creatinine 0.67 mg/dL (0.70-1.30) L 08/06/23 04:20 Est GFR (MDRD) Af Amer > 60 (>60) 08/06/23 04:20 Est GFR (MDRD) Non-Af > 60 (>60) 08/06/23 04:20 Glucose 68 mg/dL (65-99) 08/06/23 04:20 Lactic Acid 1.1 mmol/L (0.4-2.0) 08/05/23 11:14 Calcium 7.6 mg/dL (8.5-10.1) L 08/06/23 04:20 Corrected Calcium 9.1 mg/dL (8.5-10.1) 08/06/23 04:20 Magnesium 2.8 mg/dL (2.0-2.9) 08/06/23 04:20 Total Bilirubin 1.80 mg/dL (0.2-1.0) H 08/06/23 04:20 AST 37 Units/L (15-37) 08/06/23 04:20 ALT 80 Units/L (12-78) H 08/06/23 04:20 Alkaline Phosphatase 68 Units/L (46-116) 08/06/23 04:20 Creatine Kinase 97 Units/L (39-308) 08/05/23 04:20 Troponin I High Sens 12.7 ng/L (4.0-60.0) 08/05/23 17:59 B-Natriuretic Peptide 194 pg/mL (0-79) H 08/04/23 18:55 Total Protein 5.0 g/dL (6.4-8.2) L 08/06/23 04:20 Albumin 2.1 g/dL (3.4-5.0) L 08/06/23 04:20 Globulin 2.9 g/dL (2.5-4.5) 08/06/23 04:20 Albumin/Globulin Ratio 0.7 Ratio (1.1-2.1) L 08/06/23 04:20 Specimen Type Catherized urine 08/05/23 00:28 Urine Color Dark yellow (YELLOW) 08/05/23 00:28 Urine Appearance Clear (CLEAR) 08/05/23 00: Urine pH 8.0 (5.0 - 8.0) 08/05/23 00: Ur Specific [place] 1.015 (1.000-1.030) 08/05/23 00:28 Urine Protein 2+ (NEGATIVE) 08/05/23 00: Urine Glucose (UA) Negative (NEGATIVE) 08/05/23: Urine Ketones 1+ (NEGATIVE) 08/05/23: Urine Blood 1+ (NEGATIVE) 08/05/23: Urine Nitrite Negative (NEGATIVE) 08/05/23 00: Urine Bilirubin 1+ (NEGATIVE) 08/05/23 00: Urine Urobilinogen 4+ (NORMAL) 08/05/23 00: Ur Leukocyte Esterase Negative (NEGATIVE) 08/05/23 00:28 Urine RBC 0-2 /HPF (0-3) 08/05/23 00:28 Urine WBC 0-2 /HPF (0-5) 08/05/23 00:28 Ur Squamous Epith Cells Rare /HPF (NEGATIVE) 08/05/23 00:28 Amorphous Sediment 1+ /HPF (NEGATIVE) 08/05/23 00:28 Urine Bacteria Trace /HPF (NEGATIVE) 08/05/23 00:28 Ur Culture Indicated? 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
--- NOTE | 2023-08-07 09:22 | DR.PROGNOT ---
HOSPITAL PROGRESS NOTE Progress Note for Day of: Progress Note Date: 08/07/23 Chief Complaint Chief Complaint: Moderate incisional pain left upper quadrant, no nausea or vomiting. White count is down to 12.9, normal electrolytes and liver function test. Hemoglobin 8.5. Afebrile Past Medical Family Social History Past Med/Fam/Surg Hx: No changes since H&P Allergies: Allergies No Known Allergies Allergy (Verified 08/04/23 18:28) Review Of Systems ROS: No change since H&P Vital Signs Vital Signs: Vital Signs Temperature 97.8 F Pulse Rate [Left Brachial] 81 Pulse Rate 88 Pulse Rate 88 Pulse Rate 91 Respiratory Rate 20 Respiratory Rate 22 Respiratory Rate 44 Respiratory Rate 40 Respiratory Rate 30 Respiratory Rate 30 Respiratory Rate 27 Blood Pressure [Right Arm] 121/75 Blood Pressure 121/72 O2 Sat by Pulse Oximetry 95 O2 Sat by Pulse Oximetry 95 O2 Sat by Pulse Oximetry 87 O2 Sat by Pulse Oximetry 97 Physical Exam Oriented: Normal Eyes: Normal Ear: Normal Nose: Normal Throat: Normal Respiratory: Normal Cardiovascular: Normal GI:Auscultation: Decreased GI:Palpation: Other (Soft hypoactive bowel sounds. Mild rebound tenderness in the mid abdomen.) GI: Tenderness: LLQ, Epigastric, Periumbilical and Moderate Skin: Decreased Turgur Musculoskeletal: Normal Psychiatric: Normal Mood Description: Calm Affect: Normal Speech Pattern: Clear and Unclear Laboratory and Diagnostics 08/07/23 04:25 08/07/23 04:25 Labs: 08/04/23 19:37 Blood Blood Culture - Preliminary 08/04/23 18:55 Blood Blood Culture - Preliminary Laboratory WBC 12.9 X10^3/uL (3.6-10.0) H 08/07/23 04:25 RBC 2.83 X10^6/uL (4.7-6.0) L 08/07/23 04:25 Hgb 8.5 g/dL (13.5-18.0) L 08/07/23 04:25 Hct 25.9 % (42.0-54.0) L 08/07/23 04:25 MCV 91.5 fL (80.0-100.0) 08/07/23 04:25 MCH 30.0 pg (27.0-34.0) 08/07/23 04:25 MCHC 32.7 g/dL (33.0-35.0) L 08/07/23 04:25 RDW 16.6 % (11.6-16.5) H 08/07/23 04:25 Plt Count 303 X10^3/uL (150.0-450.0) 08/07/23 04:25 Plt Count Comment Adequate (ADEQUATE) 08/06/23 04:20 MPV 9.3 fL (7.4-11.0) 08/07/23 04:25 Neut % (Auto) 84.7 % (42.0-75.0) H 08/07/23 04:25 Lymph % (Auto) 5.0 % (21.0-51.0) L 08/07/23 04:25 [place] % (Auto) 7.3 % (0.0-13.0) 08/07/23 04:25 Eos % (Auto) 2.6 % (0.9-2.9) 08/07/23 04:25 Baso % (Auto) 0.4 % (0.2-1.0) 08/07/23 04:25 Neut # (Auto) 10.9 x10^3/uL (2.2-4.8) H 08/07/23 04:25 Lymph # (Auto) 0.6 X10^3/uL (1.3-2.9) L 08/07/23 04:25 [place] # (Auto) 0.9 x10^3/uL (0.3-0.8) H 08/07/23 04:25 Eos # (Auto) 0.3 x10^3/uL (0.0-0.2) H 08/07/23 04:25 Baso # (Auto) 0.1 X10^3/uL (0.0-0.1) 08/07/23 04:25 Absolute Nucleated RBC 0.0 /100WBC 08/07/23 04:25 Total Counted 100 08/06/23 04:20 Neutrophils % (Manual) 84 % (39-76) H 08/06/23 04:20 Band Neutrophils % 1 % (0-10) 08/06/23 04:20 Lymphocytes % (Manual) 5 % (13-43) L 08/06/23 04:20 Monocytes % (Manual) 8 % (4-9) 08/06/23 04:20 Eosinophils % (Manual) 2 % (0-6) 08/06/23 04:20 Plt Morphology Comment Normal (NORMAL) 08/06/23 04:20 RBC Morphology Normal (NORMAL) 08/06/23 04:20 Anisocytosis Slight A 08/04/23 18:55 PT 13.7 SECONDS (11.8-14.3) 08/04/23 18:55 INR Target Range - 08/04/23 18:55 INR 1.07 (0.8-1.3) 08/04/23 18:55 APTT 33.3 SECONDS (22.9-36.5) 08/04/23 18:55 PTT Comment - 08/04/23 18:55 D-Dimer 1.31 ug/ml (0.0-0.57) H 08/04/23 18:55 Sample Site Rra 08/04/23 18:36 ABG pH 7.530 (7.35-7.45) H 08/04/23 18:36 ABG pCO2 31.0 mmHg (35.0-45.0) L 08/04/23 18:36 ABG pO2 52.0 mmHg (80.0-100.0) L 08/04/23 18:36 ABG HCO3 25.9 mmol/L (22-26) 08/04/23 18:36 ABG O2 Saturation 90.0 % (90-100) 08/04/23 18:36 ABG Base Excess 3.6 mmol/L (-2.0-2.0) H 08/04/23 18:36 Cyrus Test Pos 08/04/23 18:36 A-a Gradient 166.0 mmHg 08/04/23 18:36 FiO2 36.0 08/04/23 18:36 Blood Gas Comments Pt kenney well eb 08/04/23 18:36 Sodium 140 mmol/L (136-145) 08/07/23 04:25 Corrected Sodium TNP 08/07/23 04:25 Potassium 3.6 mmol/L (3.5-5.1) 08/07/23 04:25 Chloride 106 mmol/L (98-107) 08/07/23 04:25 Carbon Dioxide 28.0 mmol/L (21-32) 08/07/23 04:25 BUN 11 mg/dL (7-18) 08/07/23 04:25 Creatinine 0.58 mg/dL (0.70-1.30) L 08/07/23 04:25 Est GFR (MDRD) Af Amer > 60 (>60) 08/07/23 04:25 Est GFR (MDRD) Non-Af > 60 (>60) 08/07/23 04:25 Glucose 59 mg/dL (65-99) L 08/07/23 04:25 Lactic Acid 1.1 mmol/L (0.4-2.0) 08/05/23 11:14 Calcium 7.5 mg/dL (8.5-10.1) L 08/07/23 04:25 Corrected Calcium 9.2 mg/dL (8.5-10.1) 08/07/23 04:25 Magnesium 2.8 mg/dL (2.0-2.9) 08/06/23 04:20 Total Bilirubin 1.50 mg/dL (0.2-1.0) H 08/07/23 04:25 AST 31 Units/L (15-37) 08/07/23 04:25 ALT 63 Units/L (12-78) 08/07/23 04:25 Alkaline Phosphatase 67 Units/L (46-116) 08/07/23 04:25 Creatine Kinase 97 Units/L (39-308) 08/05/23 04:20 Troponin I High Sens 12.7 ng/L (4.0-60.0) 08/05/23 17:59 B-Natriuretic Peptide 194 pg/mL (0-79) H 08/04/23 18:55 Total Protein 4.8 g/dL (6.4-8.2) L 08/07/23 04:25 Albumin 1.9 g/dL (3.4-5.0) L 08/07/23 04:25 Globulin 2.9 g/dL (2.5-4.5) 08/07/23 04:25 Albumin/Globulin Ratio 0.7 Ratio (1.1-2.1) L 08/07/23 04:25 Specimen Type Catherized urine 08/05/23 00:28 Urine Color Dark yellow (YELLOW) 08/05/23 00:28 Urine Appearance Clear (CLEAR) 08/05/23 00:28 Urine pH 8.0 (5.0 - 8.0) 08/05/23 00:28 Ur Specific [place] 1.015 (1.000-1.030) 08/05/23: Urine Protein 2+ (NEGATIVE) 08/05/23: Urine Glucose (UA) Negative (NEGATIVE) 08/05/23: Urine Ketones 1+ (NEGATIVE) 08/05/23: Urine Blood 1+ (NEGATIVE) 08/05/23: Urine Nitrite Negative (NEGATIVE) 08/05/23 Urine Bilirubin 1+ (NEGATIVE) 08/05/23: Urine Urobilinogen 4+ (NORMAL) 08/05/23: Ur Leukocyte Esterase Negative (NEGATIVE) 08/05/23: Urine RBC 0-2 /HPF (0-3) 08/05/23 Urine WBC 0-2 /HPF (0-5) 08/05/23: Ur Squamous Epith Cells Rare /HPF (NEGATIVE) 08/05/23 Amorphous Sediment 1+ /HPF (NEGATIVE) 08/05/23 Urine Bacteria Trace /HPF (NEGATIVE) 08/05/23 00: Ur Culture Indicated? No/not indicated 08/05/23: Resp Viral Panel (PCR) See scanned report 08/05/23 01:33 Blood Type A POSITIVE 08/06/23 07:05 Antibody Screen Positive 08/06/23 07:05 Assessment and Plan 1: Status post diagnostic laparoscopy , laparotomy and gastropexy around the PEG tube. Drainage. On IV antibiotics and peripheral TPN. 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 3: COPD. Problem Patient Problems: Patient Problems Pneumoperitoneum (Acute) K66.8 Leukocytosis (Acute) D72.829 Acute hypokalemia (Acute) E87.6 Pulmonary edema (Acute) J81.1 Bilateral pneumonia (Acute) J18.9
[2023-08-07] MEDS: CLINIMIX 4.25%-5% 1,000 ML with MVI INJ (ADULT) 10 ML, POTASSIUM CHLORIDE INJ 20 MEQ VI... IV SCH (09:41)
--- NOTE | 2023-08-07 10:03 | PCM.PROG ---
Progress Note Progress Note for Day of Date of Exam: 08/07/23 Subjective Subjective: POD#1 Patient seen at bedside, no acute events overnight. He is feeling better, abdominal pain and distension has improved. He had ex-lap yesterday, no obvious perforation was noted. Patient's PEG tube and stomach had to be sutures to the abdominal wall. He has been doing well, vitals table. He was started on TPN this morning for nutrition. His PEG tube was on suction which was turned off, he also has a ABHILASH drain. Labs/imaging -WBC 12.9 Hgb: 8.5 -CTAP reviewed Plan: follow surgery recommendations, start TPN for nutrition. Continue NPO, hydration and IV antibiotics. Continue pain control. Replace electrolytes as per protocol. Continue pain control. Monitor AM labs/imaging. Past Medical Family Social History Past Med/Fam/Surg Hx: No changes since H&P Allergies: Allergies No Known Allergies Allergy (Verified 08/04/23 18:28) Review of Systems ROS: No change since H&P Vital Signs and I&O's Vital Signs: Vital Signs Temperature 97.8 F Pulse Rate [Left Brachial] 81 Pulse Rate 88 Pulse Rate 88 Pulse Rate 91 Respiratory Rate 20 Respiratory Rate 22 Respiratory Rate 44 Respiratory Rate 40 Respiratory Rate 30 Respiratory Rate 30 Respiratory Rate 27 Blood Pressure [Right Arm] 121/75 Blood Pressure 121/72 O2 Sat by Pulse Oximetry 95 O2 Sat by Pulse Oximetry 95 O2 Sat by Pulse Oximetry 87 O2 Sat by Pulse Oximetry 97 Intake and Output: Intake & Output 08/04/23 08/05/23 08/06/23 08/07/23 23:59 23:59 23:59 23:59 Intake Total 1747 / 1747 3070 / 3070 459 / 459 Output Total 1100 / 1100 2825 / 2825 810 / 810 Balance 647 / 647 245 / 245 -351 / -351 Physical Exam Oriented: Normal Eyes: Normal Ear: Normal Nose: Normal Throat: Normal Respiratory: Normal Cardiovascular: Normal Auscultation: Bowel Sounds: Decreased Tenderness: LLQ, Epigastric, Periumbilical, Rebound and Other (ABHILASH drain and PEG noted ) Skin: Decreased Turgur Musculoskeletal: Normal Psychiatric: Normal Mood Description: Calm Affect: Normal Speech Pattern: Clear and Unclear Laboratory and Diagnostics 08/07/23 04:25 08/07/23 04:25 Labs: 08/04/23 19:37 Blood Blood Culture - Preliminary 08/04/23 18:55 Blood Blood Culture - Preliminary Laboratory WBC 12.9 X10^3/uL (3.6-10.0) H 08/07/23 04:25 RBC 2.83 X10^6/uL (4.7-6.0) L 08/07/23 04:25 Hgb 8.5 g/dL (13.5-18.0) L 08/07/23 04:25 Hct 25.9 % (42.0-54.0) L 08/07/23 04:25 MCV 91.5 fL (80.0-100.0) 08/07/23 04:25 MCH 30.0 pg (27.0-34.0) 08/07/23 04:25 MCHC 32.7 g/dL (33.0-35.0) L 08/07/23 04:25 RDW 16.6 % (11.6-16.5) H 08/07/23 04:25 Plt Count 303 X10^3/uL (150.0-450.0) 08/07/23 04:25 Plt Count Comment Adequate (ADEQUATE) 08/06/23 04:20 MPV 9.3 fL (7.4-11.0) 08/07/23 04:25 Neut % (Auto) 84.7 % (42.0-75.0) H 08/07/23 04:25 Lymph % (Auto) 5.0 % (21.0-51.0) L 08/07/23 04:25 [place] % (Auto) 7.3 % (0.0-13.0) 08/07/23 04:25 Eos % (Auto) 2.6 % (0.9-2.9) 08/07/23 04:25 Baso % (Auto) 0.4 % (0.2-1.0) 08/07/23 04:25 Neut # (Auto) 10.9 x10^3/uL (2.2-4.8) H 08/07/23 04:25 Lymph # (Auto) 0.6 X10^3/uL (1.3-2.9) L 08/07/23 04:25 [place] # (Auto) 0.9 x10^3/uL (0.3-0.8) H 08/07/23 04:25 Eos # (Auto) 0.3 x10^3/uL (0.0-0.2) H 08/07/23 04:25 Baso # (Auto) 0.1 X10^3/uL (0.0-0.1) 08/07/23 04:25 Absolute Nucleated RBC 0.0 /100WBC 08/07/23 04:25 Total Counted 100 08/06/23 04:20 Neutrophils % (Manual) 84 % (39-76) H 08/06/23 04:20 Band Neutrophils % 1 % (0-10) 08/06/23 04:20 Lymphocytes % (Manual) 5 % (13-43) L 08/06/23 04:20 Monocytes % (Manual) 8 % (4-9) 08/06/23 04:20 Eosinophils % (Manual) 2 % (0-6) 08/06/23 04:20 Plt Morphology Comment Normal (NORMAL) 08/06/23 04:20 RBC Morphology Normal (NORMAL) 08/06/23 04:20 Anisocytosis Slight A 08/04/23 18:55 PT 13.7 SECONDS (11.8-14.3) 08/04/23 18:55 INR Target Range - 08/04/23 18:55 INR 1.07 (0.8-1.3) 08/04/23 18:55 APTT 33.3 SECONDS (22.9-36.5) 08/04/23 18:55 PTT Comment - 08/04/23 18:55 D-Dimer 1.31 ug/ml (0.0-0.57) H 08/04/23 18:55 Sample Site Rra 08/04/23 18:36 ABG pH 7.530 (7.35-7.45) H 08/04/23 18:36 ABG pCO2 31.0 mmHg (35.0-45.0) L 08/04/23 18:36 ABG pO2 52.0 mmHg (80.0-100.0) L 08/04/23 18:36 ABG HCO3 25.9 mmol/L (22-26) 08/04/23 18:36 ABG O2 Saturation 90.0 % (90-100) 08/04/23 18:36 ABG Base Excess 3.6 mmol/L (-2.0-2.0) H 08/04/23 18:36 Cyrus Test Pos 08/04/23 18:36 A-a Gradient 166.0 mmHg 08/04/23 18:36 FiO2 36.0 08/04/23 18:36 Blood Gas Comments Pt kenney well eb 08/04/23 18:36 Sodium 140 mmol/L (136-145) 08/07/23 04:25 Corrected Sodium TNP 08/07/23 04:25 Potassium 3.6 mmol/L (3.5-5.1) 08/07/23 04:25 Chloride 106 mmol/L (98-107) 08/07/23 04:25 Carbon Dioxide 28.0 mmol/L (21-32) 08/07/23 04:25 BUN 11 mg/dL (7-18) 08/07/23 04:25 Creatinine 0.58 mg/dL (0.70-1.30) L 08/07/23 04:25 Est GFR (MDRD) Af Amer > 60 (>60) 08/07/23 04:25 Est GFR (MDRD) Non-Af > 60 (>60) 08/07/23 04:25 Glucose 59 mg/dL (65-99) L 08/07/23 04:25 Lactic Acid 1.1 mmol/L (0.4-2.0) 08/05/23 11:14 Calcium 7.5 mg/dL (8.5-10.1) L 08/07/23 04:25 Corrected Calcium 9.2 mg/dL (8.5-10.1) 08/07/23 04:25 Magnesium 2.8 mg/dL (2.0-2.9) 08/06/23 04:20 Total Bilirubin 1.50 mg/dL (0.2-1.0) H 08/07/23 04:25 AST 31 Units/L (15-37) 08/07/23 04:25 ALT 63 Units/L (12-78) 08/07/23 04:25 Alkaline Phosphatase 67 Units/L (46-116) 08/07/23 04:25 Creatine Kinase 97 Units/L (39-308) 08/05/23 04:20 Troponin I High Sens 12.7 ng/L (4.0-60.0) 08/05/23 17:59 B-Natriuretic Peptide 194 pg/mL (0-79) H 08/04/23 18:55 Total Protein 4.8 g/dL (6.4-8.2) L 08/07/23 04:25 Albumin 1.9 g/dL (3.4-5.0) L 08/07/23 04:25 Globulin 2.9 g/dL (2.5-4.5) 08/07/23 04:25 Albumin/Globulin Ratio 0.7 Ratio (1.1-2.1) L 08/07/23 04:25 Specimen Type Catherized urine 08/05/23 00:28 Urine Color Dark yellow (YELLOW) 08/05/23 00: Urine Appearance Clear (CLEAR) 08/05/23 00: Urine pH 8.0 (5.0 - 8.0) 08/05/23 00:28 Ur Specific [place] 1.015 (1.000-1.030) 08/05/23 00:28 Urine Protein 2+ (NEGATIVE) 08/05/23 00:28 Urine Glucose (UA) Negative (NEGATIVE) 08/05/23 00: Urine Ketones 1+ (NEGATIVE) 08/05/23 00: Urine Blood 1+ (NEGATIVE) 08/05/23 00:28 Urine Nitrite Negative (NEGATIVE) 08/05/23 00: Urine Bilirubin 1+ (NEGATIVE) 08/05/23 00:28 Urine Urobilinogen 4+ (NORMAL) 08/05/23 00:28 Ur Leukocyte Esterase Negative (NEGATIVE) 08/05/23 00:28 Urine RBC 0-2 /HPF (0-3) 08/05/23 00:28 Urine WBC 0-2 /HPF (0-5) 08/05/23 00:28 Ur Squamous Epith Cells Rare /HPF (NEGATIVE) 08/05/23 00:28 Amorphous Sediment 1+ /HPF (NEGATIVE) 08/05/23 00:28 Urine Bacteria Trace /HPF (NEGATIVE) 08/05/23 00:28 Ur Culture Indicated? 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
[2023-08-07] MEDS: DRUG FILTER EXTENSION SET ONE (10:30)
--- NOTE | 2023-08-07 13:47 | EKG ---
Test Reason : ARRHYTHMIA, SVT Blood Pressure : */* mmHG Vent. Rate : 112 BPM Atrial Rate : 112 BPM P-R Int : 138 ms QRS Dur : 104 ms QT Int : 340 ms P-R-T Axes : 47 -58 72 degrees QTc Int : 464 ms Sinus tachycardia with premature supraventricular complexes and with occasional premature ventricular complexes Left anterior fascicular block Left ventricular hypertrophy with repolarization abnormality ( R in aVL , Capo product ) Cannot rule out Septal infarct , age undetermined Abnormal ECG When compared with ECG of 05-AUG-2023 17:39, premature ventricular complexes are now present Minimal criteria for Septal infarct are now present T wave inversion now evident in Lateral leads Confirmed by Robbi Irizarry MD ([id number] on 08/07/2023 7:04:09 PM Referred By: Confirmed By: Robbi Irizarry MD
[2023-08-07] MEDS: VALIUM INJ IVP ONE (13:50)
[2023-08-07] MEDS: PHARMACY CONSULT - TPN XX SCH (14:05)
[2023-08-07 14:54] LABS: ABG BASE EXCESS 0.5 mmol/L (-2.0-2.0); ABG HCO3 21.1 mmol/L (22-26)
[2023-08-07 14:56] LABS: ABG ALLEN TEST Pos
--- NOTE | 2023-08-07 16:34 | RAD ---
EXAM:CHEST, 1 VIEWHISTORY:hypoxia, elevated HR;COMPARISON:08/04/2023FINDINGS:The trachea is midline. The cardiac silhouette is upper limits of normal.. Bibasilar pneumonic infiltrates unchanged. There is subcutaneous emphysema along the left lateral chest wall improved from prior study. Pneumoperitoneum is also resolved.. The bony thorax is unremarkable.IMPRESSION:Bibasilar pneumonic infiltrates unchanged from 08/04/2023THIS IS AN ELECTRONICALLY VERIFIED FINAL REPORT08/07/2023 4:22 PM - Electronically signed by Dar Recinos MD
[2023-08-07] MEDS ORDERED: LOPRESSOR INJ 5 MG AMP ONE (18:25)
[2023-08-07] MEDS: LOPRESSOR INJ 5 MG AMP IVP ONE (18:29)
[2023-08-08 05:29] LABS: BASOPHILS % (AUTO) 0.2 % (0.2-1.0); EOSINOPHILS # (AUTO) 0.4 x10^3/uL (0.0-0.2); EOSINOPHILS % (AUTO) 2.3 % (0.9-2.9); HEMATOCRIT 23.7 % (42.0-54.0); HEMOGLOBIN 7.7 g/dL (13.5-18.0); LYMPHOCYTES # (AUTO) 0.8 X10^3/uL (1.3-2.9); LYMPHOCYTES % (AUTO) 4.9 % (21.0-51.0); MEAN CORPUSCULAR HEMOGLOBIN 29.5 pg (27.0-34.0); MEAN CORPUSCULAR HGB CONC 32.6 g/dL (33.0-35.0); MEAN CORPUSCULAR VOLUME 90.5 fL (80.0-100.0); MEAN PLATELET VOLUME 9.5 fL (7.4-11.0); MONOCYTES # (AUTO) 1.2 x10^3/uL (0.3-0.8); MONOCYTES % (AUTO) 7.3 % (0.0-13.0); NEUTROPHILS # (AUTO) 14.2 x10^3/uL (2.2-4.8); NEUTROPHILS % (AUTO) 85.3 % (42.0-75.0); PLATELET COUNT 292 X10^3/uL (150.0-450.0); RED BLOOD COUNT 2.62 X10^6/uL (4.7-6.0); RED CELL DISTRIBUTION WIDTH 16.7 % (11.6-16.5); WHITE BLOOD COUNT 16.6 X10^3/uL (3.6-10.0)
[2023-08-08 05:39] LABS: ALANINE AMINOTRANSFERASE 48 Units/L (12-78); ALBUMIN 1.7 g/dL (3.4-5.0); ALKALINE PHOSPHATASE 63 Units/L (46-116); ASPARTATE AMINO TRANSFERASE 23 Units/L (15-37); BLOOD UREA NITROGEN 13 mg/dL (7-18); CALCIUM 7.4 mg/dL (8.5-10.1); CARBON DIOXIDE 29.1 mmol/L (21-32); CHLORIDE 103 mmol/L (98-107); COR CA(FOR HYPOALB) 9.2 mg/dL (8.5-10.1); CREATININE 0.55 mg/dL (0.70-1.30); GLUCOSE 103 mg/dL (65-99); MAGNESIUM 1.5 mg/dL (2.0-2.9); POTASSIUM 3.2 mmol/L (3.5-5.1); SODIUM 134 mmol/L (136-145); TOTAL PROTEIN 4.5 g/dL (6.4-8.2); eGFR NON BLACK RACES > 60 (>60)
--- NOTE | 2023-08-08 08:31 | DR.PROGNOT ---
HOSPITAL PROGRESS NOTE Progress Note for Day of: Progress Note Date: 08/08/23 Chief Complaint Chief Complaint: Patient is anxious, moderate incisional pain left upper quadrant, no nausea or vomiting. White count ,16.6, normal liver function test. K 3.2.. Hemoglobin 8.5. Afebrile Past Medical Family Social History Past Med/Fam/Surg Hx: No changes since H&P Allergies: Allergies No Known Allergies Allergy (Verified 08/04/23 18:28) Review Of Systems ROS: No change since H&P Vital Signs Vital Signs: Vital Signs Pulse Rate 90 Pulse Rate 90 Pulse Rate 91 Pulse Rate 85 Respiratory Rate 22 Respiratory Rate 24 Respiratory Rate 25 Respiratory Rate 17 Blood Pressure 123/68 Blood Pressure 104/70 Blood Pressure 109/68 Blood Pressure 98/70 O2 Sat by Pulse Oximetry 99 O2 Sat by Pulse Oximetry 98 O2 Sat by Pulse Oximetry 98 O2 Sat by Pulse Oximetry 99 Physical Exam Oriented: Normal Eyes: Normal Ear: Normal Nose: Normal Throat: Normal Respiratory: Normal Cardiovascular: Normal GI:Auscultation: Decreased GI:Palpation: Other (Soft hypoactive bowel sounds. mild tenderness, no rebound tenderness.) GI: Tenderness: LLQ, Epigastric, Periumbilical, Rebound and Other (ABHILASH drain and PEG noted ) Skin: Decreased Turgur Musculoskeletal: Normal Psychiatric: Normal Mood Description: Calm Affect: Normal Speech Pattern: Clear and Unclear Laboratory and Diagnostics 08/08/23 04:20 08/08/23 04:20 Labs: 08/04/23 19:37 Blood Blood Culture - Preliminary 08/04/23 18:55 Blood Blood Culture - Preliminary Laboratory WBC 16.6 X10^3/uL (3.6-10.0) H 08/08/23 04:20 RBC 2.62 X10^6/uL (4.7-6.0) L 08/08/23 04:20 Hgb 7.7 g/dL (13.5-18.0) L 08/08/23 04:20 Hct 23.7 % (42.0-54.0) L 08/08/23 04:20 MCV 90.5 fL (80.0-100.0) 08/08/23 04:20 MCH 29.5 pg (27.0-34.0) 08/08/23 04:20 MCHC 32.6 g/dL (33.0-35.0) L 08/08/23 04:20 RDW 16.7 % (11.6-16.5) H 08/08/23 04:20 Plt Count 292 X10^3/uL (150.0-450.0) 08/08/23 04:20 Plt Count Comment Adequate (ADEQUATE) 08/06/23 04:20 MPV 9.5 fL (7.4-11.0) 08/08/23 04:20 Neut % (Auto) 85.3 % (42.0-75.0) H 08/08/23 04:20 Lymph % (Auto) 4.9 % (21.0-51.0) L 08/08/23 04:20 [place] % (Auto) 7.3 % (0.0-13.0) 08/08/23 04:20 Eos % (Auto) 2.3 % (0.9-2.9) 08/08/23 04:20 Baso % (Auto) 0.2 % (0.2-1.0) 08/08/23 04:20 Neut # (Auto) 14.2 x10^3/uL (2.2-4.8) H 08/08/23 04:20 Lymph # (Auto) 0.8 X10^3/uL (1.3-2.9) L 08/08/23 04:20 [place] # (Auto) 1.2 x10^3/uL (0.3-0.8) H 08/08/23 04:20 Eos # (Auto) 0.4 x10^3/uL (0.0-0.2) H 08/08/23 04:20 Baso # (Auto) 0.0 X10^3/uL (0.0-0.1) 08/08/23 04:20 Absolute Nucleated RBC 0.1 /100WBC 08/08/23 04:20 Total Counted 100 08/06/23 04:20 Neutrophils % (Manual) 84 % (39-76) H 08/06/23 04:20 Band Neutrophils % 1 % (0-10) 08/06/23 04:20 Lymphocytes % (Manual) 5 % (13-43) L 08/06/23 04:20 Monocytes % (Manual) 8 % (4-9) 08/06/23 04:20 Eosinophils % (Manual) 2 % (0-6) 08/06/23 04:20 Plt Morphology Comment Normal (NORMAL) 08/06/23 04:20 RBC Morphology Normal (NORMAL) 08/06/23 04:20 Anisocytosis Slight A 08/04/23 18:55 PT 13.7 SECONDS (11.8-14.3) 08/04/23 18:55 INR Target Range - 08/04/23 18:55 INR 1.07 (0.8-1.3) 08/04/23 18:55 APTT 33.3 SECONDS (22.9-36.5) 08/04/23 18:55 PTT Comment - 08/04/23 18:55 D-Dimer 1.31 ug/ml (0.0-0.57) H 08/04/23 18:55 Sample Site Rrad 08/07/23 14:49 ABG pH 7.570 (7.35-7.45) H* 08/07/23 14:49 ABG pCO2 23.0 mmHg (35.0-45.0) L 08/07/23 14:49 ABG pO2 136.0 mmHg (80.0-100.0) H 08/07/23 14:49 ABG HCO3 21.1 mmol/L (22-26) L 08/07/23 14:49 ABG O2 Saturation 99.0 % (90-100) 08/07/23 14:49 ABG Base Excess 0.5 mmol/L (-2.0-2.0) 08/07/23 14:49 Cyrus Test Pos 08/07/23 14:49 A-a Gradient 192.0 mmHg 08/07/23 14:49 FiO2 50.0 08/07/23 14:49 Blood Gas Comments Pt kenney well. kg 08/07/23 14:49 Sodium 134 mmol/L (136-145) L 08/08/23 04:20 Corrected Sodium TNP 08/08/23 04:20 Potassium 3.2 mmol/L (3.5-5.1) L 08/08/23 04:20 Chloride 103 mmol/L (98-107) 08/08/23 04:20 Carbon Dioxide 29.1 mmol/L (21-32) 08/08/23 04:20 BUN 13 mg/dL (7-18) 08/08/23 04:20 Creatinine 0.55 mg/dL (0.70-1.30) L 08/08/23 04:20 Est GFR (MDRD) Af Amer > 60 (>60) 08/08/23 04:20 Est GFR (MDRD) Non-Af > 60 (>60) 08/08/23 04:20 Glucose 103 mg/dL (65-99) H 08/08/23 04:20 Lactic Acid 1.1 mmol/L (0.4-2.0) 08/05/23 11:14 Calcium 7.4 mg/dL (8.5-10.1) L 08/08/23 04:20 Corrected Calcium 9.2 mg/dL (8.5-10.1) 08/08/23 04:20 Magnesium 1.5 mg/dL (2.0-2.9) L 08/08/23 04:20 Total Bilirubin 0.90 mg/dL (0.2-1.0) 08/08/23 04:20 AST 23 Units/L (15-37) 08/08/23 04:20 ALT 48 Units/L (12-78) 08/08/23 04:20 Alkaline Phosphatase 63 Units/L (46-116) 08/08/23 04:20 Creatine Kinase 97 Units/L (39-308) 08/05/23 04:20 Troponin I High Sens 12.7 ng/L (4.0-60.0) 08/05/23 17:59 B-Natriuretic Peptide 194 pg/mL (0-79) H 08/04/23 18:55 Total Protein 4.5 g/dL (6.4-8.2) L 08/08/23 04:20 Albumin 1.7 g/dL (3.4-5.0) L 08/08/23 04:20 Globulin 2.8 g/dL (2.5-4.5) 08/08/23 04:20 Albumin/Globulin Ratio 0.6 Ratio (1.1-2.1) L 08/08/23 04:20 TSH 3rd Generation 5.555 uIU/mL (0.358-3.74) H 08/07/23 04:25 Specimen Type Catherized urine 08/05/23 00:28 Urine Color Dark yellow (YELLOW) 08/05/23 00:28 Urine Appearance Clear (CLEAR) 08/05/23 00: Urine pH 8.0 (5.0 - 8.0) 08/05/23 00: Ur Specific [place] 1.015 (1.000-1.030) 08/05/23: Urine Protein 2+ (NEGATIVE) 08/05/23 00: Urine Glucose (UA) Negative (NEGATIVE) 08/05/23: Urine Ketones 1+ (NEGATIVE) 08/05/23: Urine Blood 1+ (NEGATIVE) 08/05/23: Urine Nitrite Negative (NEGATIVE) 08/05/23: Urine Bilirubin 1+ (NEGATIVE) 08/05/23: Urine Urobilinogen 4+ (NORMAL) 08/05/23: Ur Leukocyte Esterase Negative (NEGATIVE) 08/05/23: Urine RBC 0-2 /HPF (0-3) 08/05/23: Urine WBC 0-2 /HPF (0-5) 08/05/23: Ur Squamous Epith Cells Rare /HPF (NEGATIVE) 08/05/23: Amorphous Sediment 1+ /HPF (NEGATIVE) 08/05/23: Urine Bacteria Trace /HPF (NEGATIVE) 08/05/23 00: Ur Culture Indicated? No/not indicated 08/05/23: Resp Viral Panel (PCR) See scanned report 08/05/23 01:33 Blood Type A POSITIVE 08/06/23 07:05 Antibody Screen Positive 08/06/23 07:05 Assessment and Plan 1: Status post diagnostic laparoscopy , laparotomy and gastropexy around the PEG tube. Drainage. On IV antibiotics and peripheral TPN. To start feeding via PEG tube. And start on full liquid diet. 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 3: COPD. 4: Anxiety, on Valium as needed. Episodes of tachycardia.. Problem Patient Problems: Patient Problems Pneumoperitoneum (Acute) K66.8 Leukocytosis (Acute) D72.829 Acute hypokalemia (Acute) E87.6 Pulmonary edema (Acute) J81.1 Bilateral pneumonia (Acute) J18.9
[2023-08-08] MEDS: DRUG FILTER EXTENSION SET ONE ×2 (08:59)
[2023-08-08] MEDS ORDERED: MAGNESIUM SULFATE 1 GRAM/100 mL PREMIX 1 G/100 ML BAG IV SCH (09:00)
[2023-08-08] MEDS ORDERED: K-RIDER 10 MEQ/100 ML WATER 10 MEQ/100 ML BAG IV SCH (09:00)
[2023-08-08] MEDS: CLINIMIX 4.25%-5% 1,000 ML with MVI INJ (ADULT) 10 ML, POTASSIUM CHLORIDE INJ 20 MEQ VI... IV SCH (09:10)
--- NOTE | 2023-08-08 10:58 | PCM.PROG ---
Progress Note Progress Note for Day of Date of Exam: 08/08/23 Subjective Subjective: POD#2, diagnostic laparoscopy , laparotomy and gastropexy around the PEG tube. Patient was examined at bedside. He did have some confusion yesterday afternoon that resolved by evening. No acute events overnight. He reports feeling better, abdominal pain and distension has improved. He is currently receiving TPN this morning for nutrition. Labs/imaging -WBC 16.6, Hgb 7.7, Plt 292, -Na 134, K 3.2, Creatinine 0.55, Glucose 103. Plan: follow surgery recommendations To start feeding via PEG tube. And start on full liquid diet.. Continue TPN for nutrition and IV antibiotics. Continue pain control. Replace electrolytes as per protocol. Continue to closely monitor and follow up AM labs/imaging. Past Medical Family Social History Past Med/Fam/Surg Hx: No changes since H&P Allergies: Allergies No Known Allergies Allergy (Verified 08/04/23 18:28) Review of Systems ROS changes noted: see HPI Vital Signs and I&O's Vital Signs: Vital Signs Pulse Rate 85 Pulse Rate 90 Pulse Rate 99 Pulse Rate 99 Pulse Rate 96 Pulse Rate 97 Pulse Rate 90 Pulse Rate 90 Respiratory Rate 28 Respiratory Rate 36 Respiratory Rate 36 Respiratory Rate 25 Respiratory Rate 29 Respiratory Rate 22 Respiratory Rate 24 Blood Pressure 118/72 Blood Pressure 118/72 Blood Pressure 106/61 Blood Pressure 114/67 Blood Pressure 114/67 Blood Pressure 114/67 Blood Pressure 123/68 Blood Pressure 104/70 O2 Sat by Pulse Oximetry 100 O2 Sat by Pulse Oximetry 99 O2 Sat by Pulse Oximetry 94 O2 Sat by Pulse Oximetry 94 O2 Sat by Pulse Oximetry 97 O2 Sat by Pulse Oximetry 95 O2 Sat by Pulse Oximetry 99 O2 Sat by Pulse Oximetry 98 Intake and Output: Intake & Output 08/05/23 08/06/23 08/07/23 08/08/23 23:59 23:59 23:59 23:59 Intake Total 1747 / 1747 3070 / 3070 2661 / 2661 934 / 934 Output Total 1100 / 1100 2825 / 2825 2110 / 2110 700 / 700 Balance 647 / 647 245 / 245 551 / 551 234 / 234 Physical Exam Oriented: Normal Eyes: Normal Ear: Normal Nose: Normal Throat: Normal Respiratory: Normal Cardiovascular: Normal Auscultation: Bowel Sounds: Decreased Tenderness: LLQ, Epigastric, Periumbilical, Rebound and Other (ABHILASH drain and PEG noted ) Skin: Decreased Turgur Musculoskeletal: Normal Psychiatric: Normal Mood Description: Calm Affect: Normal Speech Pattern: Clear and Unclear Laboratory and Diagnostics 08/08/23 04:20 08/08/23 04:20 Labs: 08/04/23 19:37 Blood Blood Culture - Preliminary 08/04/23 18:55 Blood Blood Culture - Preliminary Laboratory WBC 16.6 X10^3/uL (3.6-10.0) H 08/08/23 04:20 RBC 2.62 X10^6/uL (4.7-6.0) L 08/08/23 04:20 Hgb 7.7 g/dL (13.5-18.0) L 08/08/23 04:20 Hct 23.7 % (42.0-54.0) L 08/08/23 04:20 MCV 90.5 fL (80.0-100.0) 08/08/23 04:20 MCH 29.5 pg (27.0-34.0) 08/08/23 04:20 MCHC 32.6 g/dL (33.0-35.0) L 08/08/23 04:20 RDW 16.7 % (11.6-16.5) H 08/08/23 04:20 Plt Count 292 X10^3/uL (150.0-450.0) 08/08/23 04:20 Plt Count Comment Adequate (ADEQUATE) 08/06/23 04:20 MPV 9.5 fL (7.4-11.0) 08/08/23 04:20 Neut % (Auto) 85.3 % (42.0-75.0) H 08/08/23 04:20 Lymph % (Auto) 4.9 % (21.0-51.0) L 08/08/23 04:20 [place] % (Auto) 7.3 % (0.0-13.0) 08/08/23 04:20 Eos % (Auto) 2.3 % (0.9-2.9) 08/08/23 04:20 Baso % (Auto) 0.2 % (0.2-1.0) 08/08/23 04:20 Neut # (Auto) 14.2 x10^3/uL (2.2-4.8) H 08/08/23 04:20 Lymph # (Auto) 0.8 X10^3/uL (1.3-2.9) L 08/08/23 04:20 [place] # (Auto) 1.2 x10^3/uL (0.3-0.8) H 08/08/23 04:20 Eos # (Auto) 0.4 x10^3/uL (0.0-0.2) H 08/08/23 04:20 Baso # (Auto) 0.0 X10^3/uL (0.0-0.1) 08/08/23 04:20 Absolute Nucleated RBC 0.1 /100WBC 08/08/23 04:20 Total Counted 100 08/06/23 04:20 Neutrophils % (Manual) 84 % (39-76) H 08/06/23 04:20 Band Neutrophils % 1 % (0-10) 08/06/23 04:20 Lymphocytes % (Manual) 5 % (13-43) L 08/06/23 04:20 Monocytes % (Manual) 8 % (4-9) 08/06/23 04:20 Eosinophils % (Manual) 2 % (0-6) 08/06/23 04:20 Plt Morphology Comment Normal (NORMAL) 08/06/23 04:20 RBC Morphology Normal (NORMAL) 08/06/23 04:20 Anisocytosis Slight A 08/04/23 18:55 PT 13.7 SECONDS (11.8-14.3) 08/04/23 18:55 INR Target Range - 08/04/23 18:55 INR 1.07 (0.8-1.3) 08/04/23 18:55 APTT 33.3 SECONDS (22.9-36.5) 08/04/23 18:55 PTT Comment - 08/04/23 18:55 D-Dimer 1.31 ug/ml (0.0-0.57) H 08/04/23 18:55 Sample Site Rrad 08/07/23 14:49 ABG pH 7.570 (7.35-7.45) H* 08/07/23 14:49 ABG pCO2 23.0 mmHg (35.0-45.0) L 08/07/23 14:49 ABG pO2 136.0 mmHg (80.0-100.0) H 08/07/23 14:49 ABG HCO3 21.1 mmol/L (22-26) L 08/07/23 14:49 ABG O2 Saturation 99.0 % (90-100) 08/07/23 14:49 ABG Base Excess 0.5 mmol/L (-2.0-2.0) 08/07/23 14:49 Cyrus Test Pos 08/07/23 14:49 A-a Gradient 192.0 mmHg 08/07/23 14:49 FiO2 50.0 08/07/23 14:49 Blood Gas Comments Pt kenney well. kg 08/07/23 14:49 Sodium 134 mmol/L (136-145) L 08/08/23 04:20 Corrected Sodium TNP 08/08/23 04:20 Potassium 3.2 mmol/L (3.5-5.1) L 08/08/23 04:20 Chloride 103 mmol/L (98-107) 08/08/23 04:20 Carbon Dioxide 29.1 mmol/L (21-32) 08/08/23 04:20 BUN 13 mg/dL (7-18) 08/08/23 04:20 Creatinine 0.55 mg/dL (0.70-1.30) L 08/08/23 04:20 Est GFR (MDRD) Af Amer > 60 (>60) 08/08/23 04:20 Est GFR (MDRD) Non-Af > 60 (>60) 08/08/23 04:20 Glucose 103 mg/dL (65-99) H 08/08/23 04:20 Lactic Acid 1.1 mmol/L (0.4-2.0) 08/05/23 11:14 Calcium 7.4 mg/dL (8.5-10.1) L 08/08/23 04:20 Corrected Calcium 9.2 mg/dL (8.5-10.1) 08/08/23 04:20 Magnesium 1.5 mg/dL (2.0-2.9) L 08/08/23 04:20 Total Bilirubin 0.90 mg/dL (0.2-1.0) 08/08/23 04:20 AST 23 Units/L (15-37) 08/08/23 04:20 ALT 48 Units/L (12-78) 08/08/23 04:20 Alkaline Phosphatase 63 Units/L (46-116) 08/08/23 04:20 Creatine Kinase 97 Units/L (39-308) 08/05/23 04:20 Troponin I High Sens 12.7 ng/L (4.0-60.0) 08/05/23 17:59 B-Natriuretic Peptide 194 pg/mL (0-79) H 08/04/23 18:55 Total Protein 4.5 g/dL (6.4-8.2) L 08/08/23 04:20 Albumin 1.7 g/dL (3.4-5.0) L 08/08/23 04:20 Globulin 2.8 g/dL (2.5-4.5) 08/08/23 04:20 Albumin/Globulin Ratio 0.6 Ratio (1.1-2.1) L 08/08/23 04:20 TSH 3rd Generation 5.555 uIU/mL (0.358-3.74) H 08/07/23 04:25 Specimen Type Catherized urine 08/05/23 00:28 Urine Color Dark yellow (YELLOW) 08/05/23 00: Urine Appearance Clear (CLEAR) 08/05/23 00: Urine pH 8.0 (5.0 - 8.0) 08/05/23 00: Ur Specific [place] 1.015 (1.000-1.030) 08/05/23 00: Urine Protein 2+ (NEGATIVE) 08/05/23: Urine Glucose (UA) Negative (NEGATIVE) 08/05/23: Urine Ketones 1+ (NEGATIVE) 08/05/23: Urine Blood 1+ (NEGATIVE) 08/05/23: Urine Nitrite Negative (NEGATIVE) 08/05/23: Urine Bilirubin 1+ (NEGATIVE) 08/05/23: Urine Urobilinogen 4+ (NORMAL) 08/05/23: Ur Leukocyte Esterase Negative (NEGATIVE) 08/05/23: Urine RBC 0-2 /HPF (0-3) 08/05/23 00: Urine WBC 0-2 /HPF (0-5) 08/05/23: Ur Squamous Epith Cells Rare /HPF (NEGATIVE) 08/05/23: Amorphous Sediment 1+ /HPF (NEGATIVE) 08/05/23 00:28 Urine Bacteria Trace /HPF (NEGATIVE) 08/05/23 00:28 Ur Culture Indicated? 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
--- NOTE | 2023-08-08 13:13 | DR.CONSULT ---
CONSULT Consultation for Day of: Date: 08/08/23 Chief Complaint Chief Complaint: abnormal rhythm Allergies Allergies Allergy/AdvReac Type Severity Reaction Status Date / Time No Known Allergies Allergy Verified 08/04/23 18:28 History of Present Illness History of Present Illness: 68 yo male- admitted for abd pain after surgery/peg- needed another operation- getting better- there was time he didnt get his bb as npo for surgery- had recent stent 05/18- thus on asa/prasugrel-last pm he had narrow complex tach at 150-160- he was unaware- he doesnot know his ef- care is given in [place] Past Medical History Past Medical History: Anemia, Anxiety, CHF, COPD, Coronary Artery Disease, Depression, Dyslipidemia, GERD, Hypertension, Hypothyroidism and PUD Past Surgical History Surgical History: Abdominal Surgery, Angioplasty/Stents, Appendectomy, Cholecystectomy and Ortho Surgery Family History Family Medical History: Cancer and Coronary Artery Disease Social History Does patient currently use any type of tobacco product: No Have you used tobacco products in the last 12 months: No Type of Tobacco Use: None Does any household member use tobacco: No Alcohol Use: None Drug Use: None Medications Home Medications: No Known Allergies Allergy (Verified 08/04/23 18:28) CONTINUE taking the following medications aspirin 81 mg tablet,delayed release 81 mg PO QDAY 08/04/23 [History] Physical Exam Vital Signs: Vital Signs Pulse Rate 98 Pulse Rate 95 Pulse Rate 100 Pulse Rate 87 Pulse Rate 93 Pulse Rate 85 Pulse Rate 90 Pulse Rate 99 Pulse Rate 99 Pulse Rate 96 Pulse Rate 97 Respiratory Rate 28 Respiratory Rate 30 Respiratory Rate 33 Respiratory Rate 24 Respiratory Rate 26 Respiratory Rate 28 Respiratory Rate 36 Respiratory Rate 36 Respiratory Rate 25 Respiratory Rate 29 Blood Pressure 98/59 Blood Pressure 105/64 Blood Pressure 118/75 Blood Pressure 108/71 Blood Pressure 118/72 Blood Pressure 118/72 Blood Pressure 106/61 Blood Pressure 114/67 Blood Pressure 114/67 Blood Pressure 114/67 O2 Sat by Pulse Oximetry 100 O2 Sat by Pulse Oximetry 98 O2 Sat by Pulse Oximetry 93 O2 Sat by Pulse Oximetry 100 O2 Sat by Pulse Oximetry 99 O2 Sat by Pulse Oximetry 100 O2 Sat by Pulse Oximetry 99 O2 Sat by Pulse Oximetry 94 O2 Sat by Pulse Oximetry 94 O2 Sat by Pulse Oximetry 97 O2 Sat by Pulse Oximetry 95 alert ox3 nad clear lungs tachy/regular emilia no edema labs: hct 34 down to 23.7, k 3.2, cr 0.55 alb 1.7 tsh 5.5 trop x2 - [id number] cxr: b basilar infiltrates ekg: LBBB 5/5, upon presentation some st elevation that got better but trops negative tele: narrow complex tach 150-160 ( rate suggests aflutter/ vs svt- hard to see p waves!) Plan (1) Pneumoperitoneum: Status: Acute (2) Acute hypokalemia: Status: Acute (3) Pulmonary edema: Status: Acute Qualifiers: Chronicity: acute Qualified Code(s): J81.0 - Acute pulmonary edema (4) Interstitial lung disease: Status: Acute (5) CHF (congestive heart failure): Status: Acute Qualifiers: Heart failure chronicity: acute on chronic Heart failure type: combined systolic and diastolic Qualified Code(s): I50.43 - Acute on chronic combined systolic (congestive) and diastolic (congestive) heart failure (6) CAD (coronary artery disease): Status: Acute Plan: recent stent so cont prasugrel/asa if at all possible to prevent stent thrombosis (7) Narrow complex tachycardia: Status: Acute Plan: push bb as bp allows- tsh does not show hyperthyroid- will get echo to document LV function- his cardio care in [place]
[2023-08-08] MEDS: CONSULT PHARMACY - POTASSIUM & MAGNESIUM XX SCH (15:14)
[2023-08-08] MEDS: TOPROL XL PO SCH (21:03)
[2023-08-09 05:08] LABS: BASOPHILS # (AUTO) 0.1 X10^3/uL (0.0-0.1); BASOPHILS % (AUTO) 0.5 % (0.2-1.0); EOSINOPHILS # (AUTO) 0.4 x10^3/uL (0.0-0.2); EOSINOPHILS % (AUTO) 1.9 % (0.9-2.9); HEMATOCRIT 23.6 % (42.0-54.0); HEMOGLOBIN 7.8 g/dL (13.5-18.0); LYMPHOCYTES # (AUTO) 0.7 X10^3/uL (1.3-2.9); LYMPHOCYTES % (AUTO) 3.7 % (21.0-51.0); MEAN CORPUSCULAR HGB CONC 33.1 g/dL (33.0-35.0); MEAN CORPUSCULAR VOLUME 90.4 fL (80.0-100.0); MEAN PLATELET VOLUME 9.2 fL (7.4-11.0); MONOCYTES # (AUTO) 1.3 x10^3/uL (0.3-0.8); MONOCYTES % (AUTO) 6.6 % (0.0-13.0); NEUTROPHILS % (AUTO) 87.3 % (42.0-75.0); PLATELET COUNT 326 X10^3/uL (150.0-450.0); RED BLOOD COUNT 2.61 X10^6/uL (4.7-6.0); RED CELL DISTRIBUTION WIDTH 16.3 % (11.6-16.5); WHITE BLOOD COUNT 19.5 X10^3/uL (3.6-10.0)
[2023-08-09 05:17] LABS: ALANINE AMINOTRANSFERASE 39 Units/L (12-78); ALBUMIN 1.6 g/dL (3.4-5.0); ALKALINE PHOSPHATASE 67 Units/L (46-116); ASPARTATE AMINO TRANSFERASE 22 Units/L (15-37); BLOOD UREA NITROGEN 12 mg/dL (7-18); CALCIUM 7.6 mg/dL (8.5-10.1); CARBON DIOXIDE 31.9 mmol/L (21-32); CHLORIDE 103 mmol/L (98-107); COR CA(FOR HYPOALB) 9.5 mg/dL (8.5-10.1); CREATININE 0.55 mg/dL (0.70-1.30); GLUCOSE 97 mg/dL (65-99); MAGNESIUM 2.1 mg/dL (2.0-2.9); POTASSIUM 3.6 mmol/L (3.5-5.1); SODIUM 138 mmol/L (136-145); TOTAL PROTEIN 4.7 g/dL (6.4-8.2); eGFR NON BLACK RACES > 60 (>60)
[2023-08-09] MEDS: DRUG FILTER EXTENSION SET ONE ×2 (05:54→20:41)
[2023-08-09] MEDS ORDERED: ALBURX INJ 5% 25 G/500 ML VIAL IV SCH (07:06)
[2023-08-09] MEDS: ALBUMIN HUMAN 25%- 100 ML 100 ML IV SCH (08:38)
--- NOTE | 2023-08-09 08:54 | NOTE.SOAP ---
Soap Note Note for Day of Date of Exam: 08/09/23 Subjective Data Subjective Data: unaware of tachycardia-some sob Objective Data Objective Data: i/o [id number] bp 130/70 p 88 tele: nsvt/short svt- some desats labs: hct 23.6 k 3.6 alb 1.6 last bnp:194 08/03 cxr 08/06: b basilar infiltrates Assessment Assessment: cad/peg/aspiration risk/htn/anemia/sob Plan Plan: echo today- check bnp- dont let hct drop <22 with cad: give blood
--- NOTE | 2023-08-09 09:25 | PCM.PROG ---
Progress Note Progress Note for Day of Date of Exam: 08/09/23 Subjective Subjective: POD#3, diagnostic laparoscopy , laparotomy and gastropexy around the PEG tube. Patient was examined at bedside. He continues to improve. No acute events overnight. He is currently receiving TPN this morning for nutrition and has started feeds through PEG tube. Labs/imaging -WBC 19.5, Hgb 7.8, Plt 326, -Na 138, K 3.6, Creatinine 0.55, Glucose 97. Plan: follow surgery recommendations. Continue feeding via PEG tube. Currently on full liquid diet. Continue TPN for nutrition and IV antibiotics. Continue pain control. Replace electrolytes as per protocol. Continue to closely monitor and follow up AM labs/imaging. Past Medical Family Social History Past Med/Fam/Surg Hx: No changes since H&P Allergies: Allergies No Known Allergies Allergy (Verified 08/04/23 18:28) Review of Systems ROS changes noted: see HPI Vital Signs and I&O's Vital Signs: Vital Signs Temperature 97.8 F Pulse Rate 88 Pulse Rate 83 Pulse Rate 81 Respiratory Rate 30 Respiratory Rate 18 Respiratory Rate 18 Respiratory Rate 18 Respiratory Rate 30 Blood Pressure 130/71 Blood Pressure 123/66 O2 Sat by Pulse Oximetry 95 O2 Sat by Pulse Oximetry 95 O2 Sat by Pulse Oximetry 98 Intake and Output: Intake & Output 08/06/23 08/07/23 08/08/23 08/09/23 23:59 23:59 23:59 23:59 Intake Total 3070 / 3070 2661 / 2661 3818 / 3818 1038 / 1038 Output Total 2825 / 2825 2110 / 2110 3350 / 3350 910 / 910 Balance 245 / 245 551 / 551 468 / 468 128 / 128 Physical Exam Oriented: Normal Eyes: Normal Ear: Normal Nose: Normal Throat: Normal Respiratory: Normal Cardiovascular: Normal Auscultation: Bowel Sounds: Normal Tenderness: Other (PEG noted ) Skin: Decreased Turgur Musculoskeletal: Normal Psychiatric: Normal Mood Description: Calm Affect: Normal Speech Pattern: Clear Laboratory and Diagnostics 08/09/23 04:25 08/09/23 04:25 Labs: 08/04/23 19:37 Blood Blood Culture - Preliminary 08/04/23 18:55 Blood Blood Culture - Preliminary Laboratory WBC 19.5 X10^3/uL (3.6-10.0) H 08/09/23 04:25 RBC 2.61 X10^6/uL (4.7-6.0) L 08/09/23 04:25 Hgb 7.8 g/dL (13.5-18.0) L 08/09/23 04:25 Hct 23.6 % (42.0-54.0) L 08/09/23 04:25 MCV 90.4 fL (80.0-100.0) 08/09/23 04:25 MCH 30.0 pg (27.0-34.0) 08/09/23 04:25 MCHC 33.1 g/dL (33.0-35.0) 08/09/23 04:25 RDW 16.3 % (11.6-16.5) 08/09/23 04:25 Plt Count 326 X10^3/uL (150.0-450.0) 08/09/23 04:25 Plt Count Comment Adequate (ADEQUATE) 08/06/23 04:20 MPV 9.2 fL (7.4-11.0) 08/09/23 04:25 Neut % (Auto) 87.3 % (42.0-75.0) H 08/09/23 04:25 Lymph % (Auto) 3.7 % (21.0-51.0) L 08/09/23 04:25 [place] % (Auto) 6.6 % (0.0-13.0) 08/09/23 04:25 Eos % (Auto) 1.9 % (0.9-2.9) 08/09/23 04:25 Baso % (Auto) 0.5 % (0.2-1.0) 08/09/23 04:25 Neut # (Auto) 17.0 x10^3/uL (2.2-4.8) H 08/09/23 04:25 Lymph # (Auto) 0.7 X10^3/uL (1.3-2.9) L 08/09/23 04:25 [place] # (Auto) 1.3 x10^3/uL (0.3-0.8) H 08/09/23 04:25 Eos # (Auto) 0.4 x10^3/uL (0.0-0.2) H 08/09/23 04:25 Baso # (Auto) 0.1 X10^3/uL (0.0-0.1) 08/09/23 04:25 Absolute Nucleated RBC 0.0 /100WBC 08/09/23 04:25 Total Counted 100 08/06/23 04:20 Neutrophils % (Manual) 84 % (39-76) H 08/06/23 04:20 Band Neutrophils % 1 % (0-10) 08/06/23 04:20 Lymphocytes % (Manual) 5 % (13-43) L 08/06/23 04:20 Monocytes % (Manual) 8 % (4-9) 08/06/23 04:20 Eosinophils % (Manual) 2 % (0-6) 08/06/23 04:20 Plt Morphology Comment Normal (NORMAL) 08/06/23 04:20 RBC Morphology Normal (NORMAL) 08/06/23 04:20 Anisocytosis Slight A 08/04/23 18:55 PT 13.7 SECONDS (11.8-14.3) 08/04/23 18:55 INR Target Range - 08/04/23 18:55 INR 1.07 (0.8-1.3) 08/04/23 18:55 APTT 33.3 SECONDS (22.9-36.5) 08/04/23 18:55 PTT Comment - 08/04/23 18:55 D-Dimer 1.31 ug/ml (0.0-0.57) H 08/04/23 18:55 Sample Site Rrad 08/07/23 14:49 ABG pH 7.570 (7.35-7.45) H* 08/07/23 14:49 ABG pCO2 23.0 mmHg (35.0-45.0) L 08/07/23 14:49 ABG pO2 136.0 mmHg (80.0-100.0) H 08/07/23 14:49 ABG HCO3 21.1 mmol/L (22-26) L 08/07/23 14:49 ABG O2 Saturation 99.0 % (90-100) 08/07/23 14:49 ABG Base Excess 0.5 mmol/L (-2.0-2.0) 08/07/23 14:49 Cyrus Test Pos 08/07/23 14:49 A-a Gradient 192.0 mmHg 08/07/23 14:49 FiO2 50.0 05/15/24 14:49 Blood Gas Comments Pt kenney well. kg 08/07/23 14:49 Sodium 138 mmol/L (136-145) 08/09/23 04:25 Corrected Sodium TNP 08/09/23 04:25 Potassium 3.6 mmol/L (3.5-5.1) 08/09/23 04:25 Chloride 103 mmol/L (98-107) 08/09/23 04:25 Carbon Dioxide 31.9 mmol/L (21-32) 08/09/23 04:25 BUN 12 mg/dL (7-18) 08/09/23 04:25 Creatinine 0.55 mg/dL (0.70-1.30) L 08/09/23 04:25 Est GFR (MDRD) Af Amer > 60 (>60) 08/09/23 04:25 Est GFR (MDRD) Non-Af > 60 (>60) 08/09/23 04:25 Glucose 97 mg/dL (65-99) 08/09/23 04:25 Lactic Acid 1.1 mmol/L (0.4-2.0) 08/05/23 11:14 Calcium 7.6 mg/dL (8.5-10.1) L 08/09/23 04:25 Corrected Calcium 9.5 mg/dL (8.5-10.1) 08/09/23 04:25 Magnesium 2.1 mg/dL (2.0-2.9) 08/09/23 04:25 Total Bilirubin 0.60 mg/dL (0.2-1.0) 08/09/23 04:25 AST 22 Units/L (15-37) 08/09/23 04:25 ALT 39 Units/L (12-78) 08/09/23 04:25 Alkaline Phosphatase 67 Units/L (46-116) 08/09/23 04:25 Creatine Kinase 97 Units/L (39-308) 08/05/23 04:20 Troponin I High Sens 12.7 ng/L (4.0-60.0) 08/05/23 17:59 B-Natriuretic Peptide 194 pg/mL (0-79) H 08/04/23 18:55 Total Protein 4.7 g/dL (6.4-8.2) L 08/09/23 04:25 Albumin 1.6 g/dL (3.4-5.0) L 08/09/23 04:25 Globulin 3.1 g/dL (2.5-4.5) 08/09/23 04:25 Albumin/Globulin Ratio 0.5 Ratio (1.1-2.1) L 08/09/23 04:25 Prealbumin 9.0 mg/dL (18-35.7) L 08/09/23 04:25 TSH 3rd Generation 5.555 uIU/mL (0.358-3.74) H 08/07/23 04:25 Specimen Type Catherized urine 08/05/23 00:28 Urine Color Dark yellow (YELLOW) 08/05/23: Urine Appearance Clear (CLEAR) 08/05/23: Urine pH 8.0 (5.0 - 8.0) 08/05/23 00: Ur Specific [place] 1.015 (1.000-1.030) 08/05/23 00: Urine Protein 2+ (NEGATIVE) 08/05/23 00: Urine Glucose (UA) Negative (NEGATIVE) 08/05/23 00: Urine Ketones 1+ (NEGATIVE) 08/05/23 00: Urine Blood 1+ (NEGATIVE) 08/05/23 00: Urine Nitrite Negative (NEGATIVE) 08/05/23: Urine Bilirubin 1+ (NEGATIVE) 08/05/23 00: Urine Urobilinogen 4+ (NORMAL) 08/05/23 00:28 Ur Leukocyte Esterase Negative (NEGATIVE) 08/05/23 00: Urine RBC 0-2 /HPF (0-3) 08/05/23 00: Urine WBC 0-2 /HPF (0-5) 08/05/23 00:28 Ur Squamous Epith Cells Rare /HPF (NEGATIVE) 08/05/23 00:28 Amorphous Sediment 1+ /HPF (NEGATIVE) 08/05/23 00: Urine Bacteria Trace /HPF (NEGATIVE) 08/05/23 00:28 Ur Culture Indicated? No/not indicated 08/05/23 00:28 Resp Viral Panel (PCR) See scanned report 08/05/23 01:33 Blood Type A POSITIVE 08/06/23 07:05 Antibody Screen Positive 08/06/23 07:05 Plan (1) Pneumoperitoneum: Status: Acute (2) Acute hypokalemia: Status: Acute (3) Pulmonary edema: Status: Acute Qualifiers: Chronicity: acute Qualified Code(s): J81.0 - Acute pulmonary edema (4) Interstitial lung disease: Status: Acute (5) CHF (congestive heart failure): Status: Acute Qualifiers: Heart failure chronicity: acute on chronic Heart failure type: combined systolic and diastolic Qualified Code(s): I50.43 - Acute on chronic combined systolic (congestive) and diastolic (congestive) heart failure (6) CAD (coronary artery disease): Status: Acute (7) Narrow complex tachycardia: Status: Acute
--- NOTE | 2023-08-09 10:17 | DR.PROGNOT ---
HOSPITAL PROGRESS NOTE Progress Note for Day of: Progress Note Date: 08/09/23 Chief Complaint Chief Complaint: Seems to be more comfortable today, tolerating tube feeding, no nausea or vomiting. Still complaining of mild to moderate abdominal pain. WBC 19.5, electrolytes, BUN and creatinine are normal. Hemoglobin 7.8, Albumin 1.6, O2 sat 95%. Temperature 97, blood pressure 130/70. Past Medical Family Social History Past Med/Fam/Surg Hx: No changes since H&P Allergies: Allergies No Known Allergies Allergy (Verified 08/04/23 18:28) Review Of Systems ROS: No change since H&P Changes in ROS: see HPI Vital Signs Vital Signs: Vital Signs Temperature 97.8 F Pulse Rate 88 Pulse Rate 83 Pulse Rate 81 Respiratory Rate 30 Respiratory Rate 18 Respiratory Rate 18 Respiratory Rate 18 Respiratory Rate 30 Blood Pressure 130/71 Blood Pressure 123/66 O2 Sat by Pulse Oximetry 95 O2 Sat by Pulse Oximetry 95 O2 Sat by Pulse Oximetry 98 Physical Exam Oriented: Normal Eyes: Normal Ear: Normal Nose: Normal Throat: Normal Respiratory: Normal Cardiovascular: Normal GI:Auscultation: Normal GI:Palpation: Other (Soft and flat abdomen with good bowel sounds, no leakage around the PEG tube. Mild tenderness left upper quadrant.) GI: Tenderness: Other (PEG noted ) Skin: Decreased Turgur Musculoskeletal: Normal Psychiatric: Normal Mood Description: Calm Affect: Normal Speech Pattern: Clear Laboratory and Diagnostics 08/09/23 04:25 08/09/23 04:25 Labs: 08/04/23 19:37 Blood Blood Culture - Preliminary 08/04/23 18:55 Blood Blood Culture - Preliminary Laboratory WBC 19.5 X10^3/uL (3.6-10.0) H 08/09/23 04:25 RBC 2.61 X10^6/uL (4.7-6.0) L 08/09/23 04:25 Hgb 7.8 g/dL (13.5-18.0) L 08/09/23 04:25 Hct 23.6 % (42.0-54.0) L 08/09/23 04:25 MCV 90.4 fL (80.0-100.0) 08/09/23 04:25 MCH 30.0 pg (27.0-34.0) 08/09/23 04:25 MCHC 33.1 g/dL (33.0-35.0) 08/09/23 04:25 RDW 16.3 % (11.6-16.5) 08/09/23 04:25 Plt Count 326 X10^3/uL (150.0-450.0) 08/09/23 04:25 Plt Count Comment Adequate (ADEQUATE) 08/06/23 04:20 MPV 9.2 fL (7.4-11.0) 08/09/23 04:25 Neut % (Auto) 87.3 % (42.0-75.0) H 08/09/23 04:25 Lymph % (Auto) 3.7 % (21.0-51.0) L 08/09/23 04:25 [place] % (Auto) 6.6 % (0.0-13.0) 08/09/23 04:25 Eos % (Auto) 1.9 % (0.9-2.9) 08/09/23 04:25 Baso % (Auto) 0.5 % (0.2-1.0) 08/09/23 04:25 Neut # (Auto) 17.0 x10^3/uL (2.2-4.8) H 08/09/23 04:25 Lymph # (Auto) 0.7 X10^3/uL (1.3-2.9) L 08/09/23 04:25 [place] # (Auto) 1.3 x10^3/uL (0.3-0.8) H 08/09/23 04:25 Eos # (Auto) 0.4 x10^3/uL (0.0-0.2) H 08/09/23 04:25 Baso # (Auto) 0.1 X10^3/uL (0.0-0.1) 08/09/23 04:25 Absolute Nucleated RBC 0.0 /100WBC 08/09/23 04:25 Total Counted 100 08/06/23 04:20 Neutrophils % (Manual) 84 % (39-76) H 08/06/23 04:20 Band Neutrophils % 1 % (0-10) 08/06/23 04:20 Lymphocytes % (Manual) 5 % (13-43) L 08/06/23 04:20 Monocytes % (Manual) 8 % (4-9) 08/06/23 04:20 Eosinophils % (Manual) 2 % (0-6) 08/06/23 04:20 Plt Morphology Comment Normal (NORMAL) 08/06/23 04:20 RBC Morphology Normal (NORMAL) 08/06/23 04:20 Anisocytosis Slight A 08/04/23 18:55 PT 13.7 SECONDS (11.8-14.3) 08/04/23 18:55 INR Target Range - 08/04/23 18:55 INR 1.07 (0.8-1.3) 08/04/23 18:55 APTT 33.3 SECONDS (22.9-36.5) 08/04/23 18:55 PTT Comment - 08/04/23 18:55 D-Dimer 1.31 ug/ml (0.0-0.57) H 08/04/23 18:55 Sample Site Rrad 08/07/23 14:49 ABG pH 7.570 (7.35-7.45) H* 08/07/23 14:49 ABG pCO2 23.0 mmHg (35.0-45.0) L 08/07/23 14:49 ABG pO2 136.0 mmHg (80.0-100.0) H 08/07/23 14:49 ABG HCO3 21.1 mmol/L (22-26) L 08/07/23 14:49 ABG O2 Saturation 99.0 % (90-100) 08/07/23 14:49 ABG Base Excess 0.5 mmol/L (-2.0-2.0) 08/07/23 14:49 Cyrus Test Pos 08/07/23 14:49 A-a Gradient 192.0 mmHg 08/07/23 14:49 FiO2 50.0 08/07/23 14:49 Blood Gas Comments Pt kenney well. kg 08/07/23 14:49 Sodium 138 mmol/L (136-145) 08/09/23 04:25 Corrected Sodium TNP 08/09/23 04:25 Potassium 3.6 mmol/L (3.5-5.1) 08/09/23 04:25 Chloride 103 mmol/L (98-107) 08/09/23 04:25 Carbon Dioxide 31.9 mmol/L (21-32) 08/09/23 04:25 BUN 12 mg/dL (7-18) 08/09/23 04:25 Creatinine 0.55 mg/dL (0.70-1.30) L 08/09/23 04:25 Est GFR (MDRD) Af Amer > 60 (>60) 08/09/23 04:25 Est GFR (MDRD) Non-Af > 60 (>60) 08/09/23 04:25 Glucose 97 mg/dL (65-99) 08/09/23 04:25 Lactic Acid 1.1 mmol/L (0.4-2.0) 08/05/23 11:14 Calcium 7.6 mg/dL (8.5-10.1) L 08/09/23 04:25 Corrected Calcium 9.5 mg/dL (8.5-10.1) 08/09/23 04:25 Magnesium 2.1 mg/dL (2.0-2.9) 08/09/23 04:25 Total Bilirubin 0.60 mg/dL (0.2-1.0) 08/09/23 04:25 AST 22 Units/L (15-37) 08/09/23 04:25 ALT 39 Units/L (12-78) 08/09/23 04:25 Alkaline Phosphatase 67 Units/L (46-116) 08/09/23 04:25 Creatine Kinase 97 Units/L (39-308) 08/05/23 04:20 Troponin I High Sens 12.7 ng/L (4.0-60.0) 08/05/23 17:59 B-Natriuretic Peptide 96.9 pg/mL (0-79) H 08/09/23 09:13 Total Protein 4.7 g/dL (6.4-8.2) L 08/09/23 04:25 Albumin 1.6 g/dL (3.4-5.0) L 08/09/23 04:25 Globulin 3.1 g/dL (2.5-4.5) 08/09/23 04:25 Albumin/Globulin Ratio 0.5 Ratio (1.1-2.1) L 08/09/23 04:25 Prealbumin 9.0 mg/dL (18-35.7) L 08/09/23 04:25 TSH 3rd Generation 5.555 uIU/mL (0.358-3.74) H 08/07/23 04:25 Specimen Type Catherized urine 08/05/23 00: Urine Color Dark yellow (YELLOW) 08/05/23 Urine Appearance Clear (CLEAR) 08/05/23 Urine pH 8.0 (5.0 - 8.0) 08/05/23: Ur Specific [place] 1.015 (1.000-1.030) 08/05/23: Urine Protein 2+ (NEGATIVE) 08/05/23: Urine Glucose (UA) Negative (NEGATIVE) 08/05/23 Urine Ketones 1+ (NEGATIVE) 08/05/23: Urine Blood 1+ (NEGATIVE) 08/05/23 Urine Nitrite Negative (NEGATIVE) 08/05/23 Urine Bilirubin 1+ (NEGATIVE) 08/05/23 Urine Urobilinogen 4+ (NORMAL) 08/05/23: Ur Leukocyte Esterase Negative (NEGATIVE) 08/05/23 Urine RBC 0-2 /HPF (0-3) 08/05/23 Urine WBC 0-2 /HPF (0-5) 08/05/23: Ur Squamous Epith Cells Rare /HPF (NEGATIVE) 08/05/23 Amorphous Sediment 1+ /HPF (NEGATIVE) 08/05/23 Urine Bacteria Trace /HPF (NEGATIVE) 08/05/23: Ur Culture Indicated? No/not indicated 08/05/23: Resp Viral Panel (PCR) See scanned report 08/05/23 01:33 Blood Type A POSITIVE 08/06/23 07:05 Antibody Screen Positive 08/06/23 07:05 Assessment and Plan 1: Status post diagnostic laparoscopy , laparotomy and gastropexy around the PEG tube. Drainage. On IV antibiotics and peripheral TPN. same feeding via PEG tube. And start on oral diet as tolerated. To transfuse 1 unit of packed cells, albumin supplement 2: History of leukemia on chemotherapy. 3: COPD. 4: Anxiety, on Valium as needed. Episodes of tachycardia.. Problem Patient Problems: Patient Problems Pneumoperitoneum (Acute) K66.8 Leukocytosis (Acute) D72.829 Acute hypokalemia (Acute) E87.6 Pulmonary edema (Acute) J81.1 Bilateral pneumonia (Acute) J18.9
[2023-08-09] MEDS: MILK OF MAGNESIA PO ONE (13:00)
[2023-08-09] MEDS: PROTONIX INJ 40 MG VIAL IVP SCH (14:20)
[2023-08-09] MEDS: ADRENALINE CHL INJ (ABBOJECT) IVP ONE (22:30)
[2023-08-10] MEDS ORDERED: DOPAMINE IV PREMIX 400 MG/250 ML 400 MG/250 ML BAG IV SCH ×2 (00:08→02:00)
[2023-08-10] MEDS ORDERED: DOPAMINE IV PREMIX 400 MG/250 ML 400 MG/250 ML BAG IV ONE (00:09)
[2023-08-10] MEDS ORDERED: DIPRIVAN PREMIX 1 GRAM IV 1,000 MG/100 ML VIAL ONE (00:15)
--- NOTE | 2023-08-10 00:46 | RAD ---
EXAM: CHEST, 1 VIEW HISTORY: TUBE PLACEMENT; COMPARISON: 08/07/2023 FINDINGS: The trachea is midline. Endotracheal tube tip above the martin. The cardiac silhouette is unremarka ble. Bilateral pneumonic infiltrates primarily involving the lower lung mendes. No pneumothorax.. The bony thorax is unremarkable. Stomach is moderately distended. There is a small amount of subcut aneous emphysema along the right lateral chest wall unchanged. IMPRESSION: Endotracheal tube tip above the martin. Diffuse bilateral pneumonic infiltrates primarily involving the lung bases. THIS IS AN ELECTRONICALLY VERIFIED FINAL REPORT 08/10/2023 12:43 AM - Electronically signed by Dar Recinos MD
[2023-08-10 00:47] LABS: ABG BASE EXCESS -9.5 mmol/L (-2.0-2.0); ABG HCO3 18.7 mmol/L (22-26)
[2023-08-10 00:48] LABS: ABG ALLEN TEST POS
[2023-08-10] MEDS: DOPAMINE IV PREMIX 400 MG/250 ML 400 MG/250 ML BAG IV ONE (00:49)
[2023-08-10] MEDS: DIPRIVAN PREMIX 1 GRAM IV 1,000 MG/100 ML VIAL IV PRN ×2 (00:57→04:27)
[2023-08-10 01:44] LABS: EOSINOPHILS # (AUTO) 0.3 x10^3/uL (0.0-0.2); HEMOGLOBIN 7.4 g/dL (13.5-18.0); LYMPHOCYTES # (AUTO) 1.8 X10^3/uL (1.3-2.9); MEAN PLATELET VOLUME 9.5 fL (7.4-11.0)
[2023-08-10] MEDS: NS 1,000 ML IV 1,000 ML IV ONE (01:46)
[2023-08-10 01:49] LABS: BASOPHILS # (AUTO) 0.2 X10^3/uL (0.0-0.1); BASOPHILS % (AUTO) 0.6 % (0.2-1.0); EOSINOPHILS % (AUTO) 1.2 % (0.9-2.9); HEMATOCRIT 23.8 % (42.0-54.0); LYMPHOCYTES % (AUTO) 7.2 % (21.0-51.0); MEAN CORPUSCULAR HEMOGLOBIN 30.1 pg (27.0-34.0); MEAN CORPUSCULAR VOLUME 97.1 fL (80.0-100.0); MONOCYTES # (AUTO) 1.5 x10^3/uL (0.3-0.8); MONOCYTES % (AUTO) 6.1 % (0.0-13.0); NEUTROPHILS # (AUTO) 21.2 x10^3/uL (2.2-4.8); NEUTROPHILS % (AUTO) 84.9 % (42.0-75.0); PLATELET COUNT 377 X10^3/uL (150.0-450.0); RED BLOOD COUNT 2.45 X10^6/uL (4.7-6.0); RED CELL DISTRIBUTION WIDTH 17.8 % (11.6-16.5); WHITE BLOOD COUNT 25.1 X10^3/uL (3.6-10.0)
[2023-08-10 01:54] LABS: ALANINE AMINOTRANSFERASE 68 Units/L (12-78); ALBUMIN 2.1 g/dL (3.4-5.0); ALKALINE PHOSPHATASE 88 Units/L (46-116); ASPARTATE AMINO TRANSFERASE 60 Units/L (15-37); BLOOD UREA NITROGEN 13 mg/dL (7-18); CALCIUM 7.9 mg/dL (8.5-10.1); CARBON DIOXIDE 20.7 mmol/L (21-32); CHLORIDE 101 mmol/L (98-107); COR CA(FOR HYPOALB) 9.4 mg/dL (8.5-10.1); COR NA(FOR HYPERGLY) 137 mmol/L (136-145); CREATINE KINASE 80 Units/L (39-308); CREATININE 0.92 mg/dL (0.70-1.30); GLUCOSE 177 mg/dL (65-99); MAGNESIUM 2.5 mg/dL (2.0-2.9); POTASSIUM 4.3 mmol/L (3.5-5.1); SODIUM 135 mmol/L (136-145); TOTAL PROTEIN 5.3 g/dL (6.4-8.2); eGFR NON BLACK RACES > 60 (>60)
[2023-08-10] MEDS ORDERED: SODIUM BICARBONATE 8.4% INJ ADULT ONE (01:59)
[2023-08-10] MEDS: SODIUM BICARBONATE 8.4% INJ ADULT IVP ONE (02:06)
[2023-08-10 02:16] LABS: ANISOCYTOSIS SLIGHT; PLATELET MORPHOLOGY COMMENT NORMAL (NORMAL); SCHISTOCYTES SLIGHT; SPHEROCYTES SLIGHT
[2023-08-10] MEDS: LEVOPHED 8 MG/250 ML IV *PREMIX 8 MG/250 ML PLAST..BAG IV PRN ×2 (02:16)
[2023-08-10] MEDS ORDERED: NS 1/2 1,000 ML IV 1,000 ML IV ONE (02:24)
--- NOTE | 2023-08-10 03:45 | CT ---
EXAM:BRAIN W/O CONHISTORY:cardiac arrest - vent PT ; best images possible due to pt conditionCOMPARISON:None.TECHNIQUE:Multi ple axial images of the head were performed from the skullbase to the vertex using standard departmental protocol. Sagittal and coronal reformatted images were performed. Dose reduction techniques including Automated Exposure Control (AEC) and adjustment of mA and kV were utilized.FINDINGS:The sulci, cisterns and ventricles are age appropriate. Mild cortical atrophy compatible with patient's age. There is no evidence of acute territorial infarction, hemorrhage, mass, mass effect or midline shift. There are no abnormal intra-axial or extra-axial fluid collections. The visualized paranasal sinuses and mastoid air cells are predominantly clear. Endotracheal and nasogastric tubes present.IMPRESSION:Mild cortical atrophy.No acute intracranial pathologyTHIS IS AN ELECTRONICALLY VERIFIED FINAL REPORT08/10/2023 3:42 AM - Electronically signed by Dar Recinos MD
--- NOTE | 2023-08-10 03:52 | CT ---
EXAM:CTA CHEST WITH CONTRASTHISTORY:cardiac arrest; best images possible due to pt condition 07/28/2023 Abdulkadir negron Magazino TuckerCOMPARISON:None.TECHNIQUE:Axial images were acquired of the chest with IV contrast for a CT angiogram. Coronal and sagittal images were provided. All images were reviewed in a variety of windows and levels. 3D 8 mm thick MIPS images were provided.RADIATION REDUCTION TECHNIQUE: Automated exposure control, Adjustment of the mA and/or kV according to patient size, or iterative reconstruction techniques were used. 8 mm thick axial MIPS images were provided.FINDINGS:THYROID GLAND: The thyroid gland is unremarkable. Endotracheal tube tip above the martin.HEART AND VESSELS: The heart size is within normal limits. There is no evidence of a pericardial effusion. There is mild aneurysmal dilatation of the ascending thoracic aorta measuring up to 4.2 cm. There is no evidence of dissection.. The main pulmonary artery size is within normal limits. There are no filling defects seen in the visualized pulmonary arteries to suggest a pulmonary embolism.LYMPHNODES: There is no evidence of axillary, mediastinal, or hilar lymphadenopathyAIRWAY: The trachea and mainstem bronchi are patent. No intraluminal lesions are seen.LUNGS: Marked emphysematous changes throughout the lungs. Scattered interstitial fibrosis with bibasilar bronchiectasis and consolidation. Trace bilateral pleural effusions. There is subcutaneous emphysema along the lateral left chest wall.ESOPHAGUS: The esophagus is grossly unremarkable.BONES: The visualized bones demonstrate degenerative changes. There are no concerning lytic or blastic lesions identified.UPPER ABDOMINAL STRUCTURES: The visualized portions of the upper abdominal structures are unremarkable.IMPRESSION:Negative CT pulmonary angiogram; no evidence of pulmonary embolic disease.Aneurysmal dilatation of the ascending thoracic aorta measuring up to 4.2 cm.Marked emphysematous changes throughout the lungs.Scattered interstitial fibrosis with bibasilar bronchiectasis and consolidation.Trace bilateral pleural effusions.THIS IS AN ELECTRONICALLY VERIFIED FINAL REPORT08/10/2023 3:49 AM - Electronically signed by Dar Recinos MD
[2023-08-10] MEDS: SODIUM BICARBONATE 8.4% IV ONE (04:10)
[2023-08-10] MEDS: NS IV ONE (04:10)
[2023-08-10] MEDS: ADRENALINE CHL INJ (ABBOJECT) IVP ONE (04:41)
[2023-08-10 05:18] LABS: BASOPHILS % (AUTO) 0 % (0.2-1.0); EOSINOPHILS % (AUTO) 0.1 % (0.9-2.9); HEMATOCRIT 25.6 % (42.0-54.0); LYMPHOCYTES # (AUTO) 0.6 X10^3/uL (1.3-2.9); LYMPHOCYTES % (AUTO) 1.3 % (21.0-51.0); MEAN CORPUSCULAR HEMOGLOBIN 29.3 pg (27.0-34.0); MEAN CORPUSCULAR HGB CONC 31.4 g/dL (33.0-35.0); MEAN CORPUSCULAR VOLUME 93.3 fL (80.0-100.0); MEAN PLATELET VOLUME 9.5 fL (7.4-11.0); MONOCYTES # (AUTO) 2.3 x10^3/uL (0.3-0.8); MONOCYTES % (AUTO) 5.4 % (0.0-13.0); NEUTROPHILS # (AUTO) 40.2 x10^3/uL (2.2-4.8); NEUTROPHILS % (AUTO) 93.2 % (42.0-75.0); PLATELET COUNT 387 X10^3/uL (150.0-450.0); RED BLOOD COUNT 2.74 X10^6/uL (4.7-6.0); RED CELL DISTRIBUTION WIDTH 16.7 % (11.6-16.5)
[2023-08-10] MEDS: XOPENEX 1.25 MG/3 ML NEBULE NEB SCH (05:26)
[2023-08-10 05:29] LABS: ALANINE AMINOTRANSFERASE 97 Units/L (12-78); ALBUMIN 2.2 g/dL (3.4-5.0); ALKALINE PHOSPHATASE 96 Units/L (46-116); ASPARTATE AMINO TRANSFERASE 109 Units/L (15-37); BLOOD UREA NITROGEN 16 mg/dL (7-18); CALCIUM 7.8 mg/dL (8.5-10.1); CARBON DIOXIDE 27.4 mmol/L (21-32); CHLORIDE 102 mmol/L (98-107); COR CA(FOR HYPOALB) 9.2 mg/dL (8.5-10.1); CREATININE 1.02 mg/dL (0.70-1.30); GLUCOSE 76 mg/dL (65-99); POTASSIUM 4.4 mmol/L (3.5-5.1); SODIUM 135 mmol/L (136-145); TOTAL PROTEIN 5.6 g/dL (6.4-8.2); eGFR NON BLACK RACES > 60 (>60)
[2023-08-10 05:34] LABS: WHITE BLOOD COUNT 43.2 X10^3/uL (3.6-10.0)
[2023-08-10 05:47] LABS: BAND NEUTROPHILS % 7 % (0-10)
[2023-08-10 05:48] LABS: ANISOCYTOSIS SLIGHT; GIANT PLATELET RARE; PLATELET MORPHOLOGY COMMENT ABNORMAL (NORMAL); SCHISTOCYTES SLIGHT; SPHEROCYTES SLIGHT; TOXIC GRANULATION NOTED
[2023-08-10 06:52] VITALS: TEMP 98.4
[2023-08-10] MEDS: XOPENEX 1.25 MG/3 ML NEBULE NEB ONE (08:16)
[2023-08-10 10:21] LABS: ABG ALLEN TEST POS; ABG BASE EXCESS -0.6 mmol/L (-2.0-2.0); ABG HCO3 25.4 mmol/L (22-26)
[2023-08-10] MEDS: NS 1,000 ML IV 1,000 ML IV SCH (12:03)
[2023-08-10] MEDS: CLINIMIX 4.25%-5% 1,000 ML with MVI INJ (ADULT) 10 ML IV SCH (12:03)
--- NOTE | 2023-08-10 13:21 | DR.PROGNOT ---
HOSPITAL PROGRESS NOTE Progress Note for Day of: Progress Note Date: 08/10/23 Chief Complaint Chief Complaint: Patient had acute changes last night and went into cardiac arrest required resuscitation. Patient is intubated, properly sedated and on respirator. He is on vasopressor to maintain his blood pressure as well. Last lab work showed troponin level of 168 which is significantly elevated and is higher the earlier one which was 91.8. Which could be the source of cardiac arrest. Lately patient was having episodes of significant tachycardia as well. Chest CT angiogram ruled out pulmonary embolism but the patient has marked emphysematous changes and fibrosis both lungs. 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 Other underlying problems are the leukemia and recent chemotherapy.. We discussed the situation in details with the family, the patient has a living with requested DNR. The plan is to continue current medications and supporting measures with no further aggressive measures and keep the patient comfortable. Past Medical Family Social History Past Med/Fam/Surg Hx: No changes since H&P Allergies: Allergies No Known Allergies Allergy (Verified 08/04/23 18:28) Review Of Systems ROS: No change since H&P Changes in ROS: see HPI Vital Signs Vital Signs: Vital Signs Temperature 98.4 F Pulse Rate 125 Pulse Rate 126 Pulse Rate 124 Pulse Rate 124 Pulse Rate 122 Pulse Rate 122 Pulse Rate 127 Pulse Rate 101 Pulse Rate 101 Pulse Rate 101 Pulse Rate 101 Pulse Rate 102 Pulse Rate 104 Pulse Rate 104 Pulse Rate 103 Pulse Rate 104 Pulse Rate 105 Pulse Rate 106 Pulse Rate 106 Pulse Rate 107 Pulse Rate 108 Pulse Rate 109 Pulse Rate 109 Pulse Rate 109 Pulse Rate 109 Pulse Rate 110 Pulse Rate 110 Pulse Rate 110 Pulse Rate 110 Pulse Rate 110 Pulse Rate 129 Pulse Rate 111 Pulse Rate 129 Pulse Rate 130 Respiratory Rate 35 Respiratory Rate 39 Respiratory Rate 39 Respiratory Rate 40 Respiratory Rate 39 Respiratory Rate 41 Respiratory Rate 40 Respiratory Rate 39 Respiratory Rate 39 Respiratory Rate 36 Respiratory Rate 38 Respiratory Rate 40 Respiratory Rate 39 Respiratory Rate 41 Respiratory Rate 40 Respiratory Rate 46 Respiratory Rate 39 Respiratory Rate 42 Respiratory Rate 43 Respiratory Rate 39 Respiratory Rate 40 Respiratory Rate 43 Respiratory Rate 42 Respiratory Rate 43 Respiratory Rate 44 Respiratory Rate 44 Respiratory Rate 46 Respiratory Rate 45 Respiratory Rate 45 Respiratory Rate 40 Respiratory Rate 44 Respiratory Rate 43 Respiratory Rate 43 Respiratory Rate 44 Respiratory Rate 43 Respiratory Rate 45 Respiratory Rate 45 Respiratory Rate 45 Respiratory Rate 43 Blood Pressure 82/54 Blood Pressure 98/62 Blood Pressure 94/62 Blood Pressure 96/61 Blood Pressure 108/57 Blood Pressure 108/57 Blood Pressure 104/66 Blood Pressure 109/71 Blood Pressure 106/73 Blood Pressure 106/71 Blood Pressure 106/71 Blood Pressure 105/68 Blood Pressure 104/65 Blood Pressure 114/72 Blood Pressure 106/66 Blood Pressure 110/70 Blood Pressure 108/73 Blood Pressure 109/76 Blood Pressure 110/75 Blood Pressure 110/74 Blood Pressure 113/73 Blood Pressure 104/69 Blood Pressure 104/69 Blood Pressure 104/69 Blood Pressure 107/75 Blood Pressure 107/75 Blood Pressure 106/73 Blood Pressure 111/75 Blood Pressure 109/72 Blood Pressure 105/71 Blood Pressure 105/71 Blood Pressure 103/74 Blood Pressure 112/74 Blood Pressure 106/68 Blood Pressure 115/66 Blood Pressure 115/66 Blood Pressure 115/66 Blood Pressure 115/83 Blood Pressure 110/73 Blood Pressure 89/63 O2 Sat by Pulse Oximetry 95 O2 Sat by Pulse Oximetry 95 O2 Sat by Pulse Oximetry 96 O2 Sat by Pulse Oximetry 95 O2 Sat by Pulse Oximetry 96 O2 Sat by Pulse Oximetry 96 O2 Sat by Pulse Oximetry 97 O2 Sat by Pulse Oximetry 98 O2 Sat by Pulse Oximetry 99 O2 Sat by Pulse Oximetry 98 O2 Sat by Pulse Oximetry 98 O2 Sat by Pulse Oximetry 98 O2 Sat by Pulse Oximetry 97 O2 Sat by Pulse Oximetry 99 O2 Sat by Pulse Oximetry 98 O2 Sat by Pulse Oximetry 98 O2 Sat by Pulse Oximetry 95 O2 Sat by Pulse Oximetry 95 O2 Sat by Pulse Oximetry 95 O2 Sat by Pulse Oximetry 95 O2 Sat by Pulse Oximetry 94 O2 Sat by Pulse Oximetry 94 O2 Sat by Pulse Oximetry 92 O2 Sat by Pulse Oximetry 99 O2 Sat by Pulse Oximetry 98 O2 Sat by Pulse Oximetry 98 O2 Sat by Pulse Oximetry 98 O2 Sat by Pulse Oximetry 97 O2 Sat by Pulse Oximetry 97 O2 Sat by Pulse Oximetry 96 O2 Sat by Pulse Oximetry 95 O2 Sat by Pulse Oximetry 94 O2 Sat by Pulse Oximetry 94 Physical Exam Eyes: Normal Ear: Normal Nose: Normal Throat: Normal Respiratory: OTHER (Patient is on respirator) Cardiovascular: Tachycardia (On vasopressor) GI:Auscultation: Decreased GI:Palpation: Other (Soft and flat abdomen with good bowel sounds, no leakage around the PEG tube. Mild tenderness left upper quadrant.) GI: Tenderness: Other (Soft and flat abdomen, no wound infection, bowel sounds are present but hypoactive, PEG tube in place. Only mild clearish serosanguineous drainage in the ABHILASH) Skin: Decreased Turgur Musculoskeletal: Normal Mood Description: Calm Affect: Normal Speech Pattern: Artificially Ventilated Laboratory and Diagnostics 08/10/23 04:05 08/10/23 04:05 Labs: 08/04/23 19:37 Blood Blood Culture - Final 08/04/23 18:55 Blood Blood Culture - Final Laboratory WBC 43.2 X10^3/uL (3.6-10.0) H* D 08/10/23 04:05 RBC 2.74 X10^6/uL (4.7-6.0) L 08/10/23 04:05 Hgb 8.0 g/dL (13.5-18.0) L 08/10/23 04:05 Hct 25.6 % (42.0-54.0) L 08/10/23 04:05 MCV 93.3 fL (80.0-100.0) 08/10/23 04:05 MCH 29.3 pg (27.0-34.0) 08/10/23 04:05 MCHC 31.4 g/dL (33.0-35.0) L 08/10/23 04:05 RDW 16.7 % (11.6-16.5) H 08/10/23 04:05 Plt Count 387 X10^3/uL (150.0-450.0) 08/10/23 04:05 Plt Count Comment Adequate (ADEQUATE) 08/10/23 04:05 MPV 9.5 fL (7.4-11.0) 08/10/23 04:05 Neut % (Auto) 93.2 % (42.0-75.0) H 08/10/23 04:05 Lymph % (Auto) 1.3 % (21.0-51.0) L 08/10/23 04:05 Mitchell % (Auto) 5.4 % (0.0-13.0) 08/10/23 04:05 Eos % (Auto) 0.1 % (0.9-2.9) L 08/10/23 04:05 Baso % (Auto) 0 % (0.2-1.0) L 08/10/23 04:05 Neut # (Auto) 40.2 x10^3/uL (2.2-4.8) H 08/10/23 04:05 Lymph # (Auto) 0.6 X10^3/uL (1.3-2.9) L 08/10/23 04:05 Mitchell # (Auto) 2.3 x10^3/uL (0.3-0.8) H 08/10/23 04:05 Eos # (Auto) 0.0 x10^3/uL (0.0-0.2) 08/10/23 04:05 Baso # (Auto) 0.0 X10^3/uL (0.0-0.1) 08/10/23 04:05 Absolute Nucleated RBC 0.0 /100WBC 08/10/23 04:05 Total Counted 100 08/10/23 04:05 Neutrophils % (Manual) 87 % (39-76) H 08/10/23 04:05 Band Neutrophils % 7 % (0-10) 08/10/23 04:05 Lymphocytes % (Manual) 2 % (13-43) L 08/10/23 04:05 Monocytes % (Manual) 4 % (4-9) 08/10/23 04:05 Eosinophils % (Manual) 2 % (0-6) 08/06/23 04:20 Toxic Granulation Noted 08/10/23 04:05 Giant Platelets Rare 08/10/23 04:05 Plt Morphology Comment Abnormal (NORMAL) 08/10/23 04:05 RBC Morphology Abnormal (NORMAL) 08/10/23 04:05 Anisocytosis Slight A 08/10/23 04:05 Spherocytes Slight A 08/10/23 04:05 Schistocytes Slight A 08/10/23 04:05 PT 13.7 SECONDS (11.8-14.3) 08/04/23 18:55 INR Target Range - 08/04/23 18:55 INR 1.07 (0.8-1.3) 08/04/23 18:55 APTT 33.3 SECONDS (22.9-36.5) 08/04/23 18:55 PTT Comment - 08/04/23 18:55 D-Dimer 10.36 ug/ml (0.0-0.57) H 08/09/23 23:45 Sample Site Lrad 08/10/23 10:16 ABG pH 7.350 (7.35-7.45) 08/10/23 10:16 ABG pCO2 46.0 mmHg (35.0-45.0) H 08/10/23 10:16 ABG pO2 81.0 mmHg (80.0-100.0) 08/10/23 10:16 ABG HCO3 25.4 mmol/L (22-26) 08/10/23 10:16 ABG O2 Saturation 95.0 % (90-100) 08/10/23 10:16 ABG Base Excess -0.6 mmol/L (-2.0-2.0) 08/10/23 10:16 Cyrus Test Pos 08/10/23 10:16 A-a Gradient 575.0 mmHg 08/10/23 10:16 FiO2 100.0 08/10/23 10:16 Blood Gas Comments Pt kenney well elj cdn 08/10/23 10:16 Sodium 135 mmol/L (136-145) L 08/10/23 04:05 Corrected Sodium TNP 08/10/23 04:05 Potassium 4.4 mmol/L (3.5-5.1) 08/10/23 04:05 Chloride 102 mmol/L (98-107) 08/10/23 04:05 Carbon Dioxide 27.4 mmol/L (21-32) 08/10/23 04:05 BUN 16 mg/dL (7-18) 08/10/23 04:05 Creatinine 1.02 mg/dL (0.70-1.30) 08/10/23 04:05 Est GFR (MDRD) Af Amer > 60 (>60) 08/10/23 04:05 Est GFR (MDRD) Non-Af > 60 (>60) 08/10/23 04:05 Glucose 76 mg/dL (65-99) 08/10/23 04:05 POC Glucose (mg/dL) 122 mg/dL (65-99) H 08/09/23 23:17 Lactic Acid 1.6 mmol/L (0.4-2.0) 08/10/23 07:24 Calcium 7.8 mg/dL (8.5-10.1) L 08/10/23 04:05 Corrected Calcium 9.2 mg/dL (8.5-10.1) 08/10/23 04:05 Magnesium 2.5 mg/dL (2.0-2.9) 08/09/23 23:45 Total Bilirubin 0.90 mg/dL (0.2-1.0) 08/10/23 04:05 AST 109 Units/L (15-37) H 08/10/23 04:05 ALT 97 Units/L (12-78) H 08/10/23 04:05 Alkaline Phosphatase 96 Units/L (46-116) 08/10/23 04:05 Creatine Kinase 80 Units/L (39-308) 08/09/23 23:45 Troponin I High Sens 168.0 ng/L (4.0-60.0) H* 08/10/23 11:44 B-Natriuretic Peptide 149 pg/mL (0-79) H 08/09/23 23:45 Total Protein 5.6 g/dL (6.4-8.2) L 08/10/23 04:05 Albumin 2.2 g/dL (3.4-5.0) L 08/10/23 04:05 Globulin 3.4 g/dL (2.5-4.5) 08/10/23 04:05 Albumin/Globulin Ratio 0.6 Ratio (1.1-2.1) L 08/10/23 04:05 Prealbumin 9.0 mg/dL (18-35.7) L 08/09/23 04:25 TSH 3rd Generation 5.555 uIU/mL (0.358-3.74) H 08/07/23 04:25 Specimen Type Catherized urine 08/05/23 00:28 Urine Color Dark yellow (YELLOW) 08/05/23: Urine Appearance Clear (CLEAR) 08/05/23 00: Urine pH 8.0 (5.0 - 8.0) 08/05/23 00: Ur Specific [place] 1.015 (1.000-1.030) 08/05/23 00: Urine Protein 2+ (NEGATIVE) 08/05/23: Urine Glucose (UA) Negative (NEGATIVE) 08/05/23: Urine Ketones 1+ (NEGATIVE) 08/05/23: Urine Blood 1+ (NEGATIVE) 08/05/23: Urine Nitrite Negative (NEGATIVE) 08/05/23: Urine Bilirubin 1+ (NEGATIVE) 05/13/24 00:28 Urine Urobilinogen 4+ (NORMAL) 08/05/23 00:28 Ur Leukocyte Esterase Negative (NEGATIVE) 08/05/23 00:28 Urine RBC 0-2 /HPF (0-3) 08/05/23 00:28 Urine WBC 0-2 /HPF (0-5) 08/05/23 00:28 Ur Squamous Epith Cells Rare /HPF (NEGATIVE) 08/05/23 00:28 Amorphous Sediment 1+ /HPF (NEGATIVE) 08/05/23 00:28 Urine Bacteria Trace /HPF (NEGATIVE) 08/05/23 00:28 Ur Culture Indicated? No/not indicated 08/05/23 00:28 Resp Viral Panel (PCR) See scanned report 08/05/23 01:33 Blood Type A POSITIVE 08/09/23 10:43 Antibody Screen Positive 08/09/23 09:58 Crossmatch See Detail 08/09/23 09:58 Tx React Prelim Eval Add. study pending 08/09/23 10:43 Tx React Symptoms Drop in hemoglobin 08/09/23 10:43 Reaction Path Interpret See comment 08/09/23 10:43 Reaction Pathol Consult Abdulkadir johnston md 08/09/23 10:43 Blood Bank Comment Performed by P2 08/09/23 10:43 Assessment and Plan 1: Patient developed cardiac arrest last night most likely [place] with underlying s evere emphysema, leukemia and on chemotherapy. 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 3: COPD. Problem Patient Problems: Patient Problems Pneumoperitoneum (Acute) K66.8 Leukocytosis (Acute) D72.829 Acute hypokalemia (Acute) E87.6 Pulmonary edema (Acute) J81.1 Bilateral pneumonia (Acute) J18.9
[2023-08-10 16:04] VITALS: BP 112/70; PULSE 97; O2SAT 99
[2023-08-10] MEDS: MORPHINE SULFATE INJ 2 MG INJ IVP PRN (16:20)
[2023-08-10 16:46] VITALS: RESP 39
== END 2023-08-10 17:30 | disposition expired | DRG 326 ==
LOC: SUPCPDRO → ER 18:25 → ICU 18:25 → OBSVTOIN 08-05 00:12 → ICU 08-05 00:59 → MED/SURG 08-09 15:31 → ICU 08-09 23:59
PROVIDERS: ADMIT Surgery; ATTEND Internal Medicine
DX: I21.29 ST elevation (STEMI) myocardial infarction involving other sites; I46.9 Cardiac arrest, cause unspecified; E78.5 Hyperlipidemia, unspecified; I50.43 Acute on chronic combined systolic (congestive) and diastolic (congestive) heart failure; R62.7 Adult failure to thrive; R06.02 Shortness of breath; I25.10 Atherosclerotic heart disease of native coronary artery without angina pectoris; I34.0 Nonrheumatic mitral (valve) insufficiency; E87.6 Hypokalemia; J44.1 Chronic obstructive pulmonary disease with (acute) exacerbation; R26.89 Other abnormalities of gait and mobility; Z92.21 Personal history of antineoplastic chemotherapy; F41.8 Other specified anxiety disorders; C92.90 Myeloid leukemia, unspecified, not having achieved remission; I11.0 Hypertensive heart disease with heart failure; Z66 Do not resuscitate; Z65.8 Other specified problems related to psychosocial circumstances; R13.11 Dysphagia, oral phase; E83.41 Hypermagnesemia; J84.9 Interstitial pulmonary disease, unspecified; R79.1 Abnormal coagulation profile; K21.9 Gastro-esophageal reflux disease without esophagitis; E03.8 Other specified hypothyroidism; K66.8 Other specified disorders of peritoneum; I71.20 Thoracic aortic aneurysm, without rupture, unspecified; D64.89 Other specified anemias; I47.19 Other supraventricular tachycardia